=== PATIENT | female | born 1950 | race Caucasian/White ===

== ENCOUNTER 2018-11-03 14:33 | Inpatient (IN) | payer MEDICARE, MEDICAID ==
[2018-11-03] MEDS ORDERED: Dextrose 50% Abboject 50 ML SYRINGE SLOW IVP PRN (17:27)
[2018-11-03] MEDS ORDERED: Dextrose 5% in Water 1,000 ML IV PRN (17:27)
[2018-11-03] MEDS: Acetaminophen 325 MG TAB PO PRN (19:53)
[2018-11-03] MEDS: HumaLOG 300 UNITS/3 ML VIAL SC PRN (20:58)
[2018-11-03] MEDS: Clotrimazole 1% Cream 15 GM TUBE TOP SCH (20:58)
[2018-11-04 06:10] LABS: ALT (SGPT) 31 U/L (8-55); AST (SGOT) 20 U/L (5-34); Albumin 3.7 g/dL (3.4-4.8); Alkaline Phosphatase 74 U/L (40-150); Anion Gap 12 mmol/L (10-20); BUN (Urea Nitrogen) 18 mg/dL (9.8-20.1); Bilirubin, Total 0.7 mg/dL (0.2-1.2); Calc. Creatinine Clearance 108 mL/min (70-130); Calcium 8.7 mg/dL (7.8-10.44); Carbon Dioxide 31 mmol/L (23-31); Chloride 101 mmol/L (98-107); Estimated GFR-MDRD 84; Glucose 154 mg/dL (80-115); Protein, Total 5.7 g/dL (6.0-8.3); Sodium 140 mmol/L (136-145)
--- NOTE | 2018-11-04 07:10 | HP ---
CHIEF COMPLAINT: Weakness. 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 The patient lives at home with her brother where she is independent of all her ADLs. She is able to prepare her own meals, but she does not drive. She uses oxygen continuous. The patient was hospitalized at [facility] from 10/15/2018 to 2018 for her postinflammatory pulmonary fibrosis with bronchiectasis with exacerbation and COPD with acute exacerbation. She was under the care of her pulmonary doctor, Dr. Chairez and his associates and treated with IV antibiotic, steroids, nebulization treatment, supplemental O2 with gradual improvement. She was switched to oral antibiotics and completed these, was switched to an oral tapering dose of steroids, and completed these. While there, she underwent a CT scan of the high resolution of the chest that showed chronic interstitial lung disease associated with traction bronchiectasis. The patient also showed signs of diffuse third spacing of fluid and anasarca, and while hospitalized there had anasarca that improved during her hospitalization, but not resolved. The patient was left extremely weak, where she could not transfer without help and was no longer ambulatory. She was moved to [facility] on 11/03/2018 for physical therapy and occupational therapy. The patient was seen soon after admission and was able to tell me that she had been in the hospital for the breathing difficulty that had improved. She said though she was left very weak and could not get up on her own and could not walk. Prior to the hospitalization, she was independent of all her ADLs and able to prepare her own meals. PAST MEDICAL HISTORY: Hospitalized at [facility] from 10/15/2018 to 11/03/2018 for postinflammatory pulmonary fibrosis with bronchiectasis with an acute exacerbation and COPD with acute exacerbation. Hospitalized at [facility] from 09/23/2017 to 10/02/2017 for active mycobacterium tuberculosis of the lungs, treated initially with 4 drugs that included isoniazid, rifampin, pyrazinamide, and ethambutol. She developed a severe drug-induced liver injuries from the INH, and this was stopped. After this was stopped, the liver studies normalized and she was able to resume her other 3 medicines and completed therapy for the active pulmonary tuberculosis. She was followed by the [facility]. The patient has diabetes mellitus type 2, insulin requiring. Her hemoglobin A1c on 10/17/2018 was 5.3. She has hypertension, COPD, peripheral neuropathy of the lower extremities. She has hyperlipidemia. Echocardiogram done on 09/06/2017, showed ejection fraction of 55% to 60%. There is elevated right ventricular pressure, moderate tricuspid regurgitation, grade 1 of 3 diastolic dysfunction, dilated right ventricle, reduced right ventricular function, mildly dilated left atrium, moderately dilated right atrium, elevated right ventricular pressure PAST SURGICAL HISTORY: Status post cholecystectomy, status post EVELIN. ALLERGIES: ISONIAZID CAUSES SEVERE LIVER INJURY. LYRICA CAUSES SOMNOLENCE AND ALSO CONTRIBUTES TO HER EDEMA. THIS WAS STOPPED DURING HER HOSPITALIZATION OF 10/15/2018. REVIEW OF SYSTEMS: GENERAL: The patient said she has not had any fever. Her appetite has been fair. EARS, NOSE, AND THROAT: No visual change. No hearing trouble. MOUTH: Just a little sore. PULMONARY: No complaints. She uses her oxygen all the time. She is not coughing, has no sputum production. CARDIOVASCULAR: No chest pain. GI: No nausea or vomiting. Bowels are working well. : No complaints. SKIN: The patient has a rash in the perineum and some redness on her heels. HABITS: Alcohol, none. Tobacco, the patient smoked for a few years, but stopped years ago. SOCIAL HISTORY: The patient lives with her brother in [place], has a daughter who helps with her instrumental ADLs and driving her when needed. CODE STATUS: Unknown. PHYSICAL EXAMINATION: VITAL SIGNS: Temperature 99.4, pulse 119, respirations 20, O2 saturation 92% on 2 L, blood pressure 117/72. Her weight is 198. GENERAL: The patient is a very pleasant 68-year-old white female, who is lying in bed with the head of the bed elevated. She appears comfortable and in no distress. She is wearing O2 by nasal cannula at 2 L a minute. She appears older than her stated age. HEENT: Her head is normocephalic and atraumatic. Her eyes, pupils are equal, round, and reactive. Sclerae nonicteric. Nose normal. Mouth and throat, tongue has little cobblestone appearance, has a pink reddish discoloration. Her ears, TMs are clear. NECK: No adenopathy. Thyroid not enlarged. LUNGS: Clear. There are moderate breath sounds. There are no rales, wheezes, rhonchi. HEART: Rapid regular rhythm. There are no murmurs. ABDOMEN: Soft. No organomegaly nor areas of tenderness. EXTREMITIES: 4+ edema from knees down. The patient says her legs are better. Said she did have a lot of swelling even in the hands, but this got better. SKIN: The patient has a red rash in the perineal area and in the intergluteal crease with satellite lesion. There is one spot that is probably no more than 5 mm in diameter that the skin is broken and bled a little and may have been a spot of excoriation. The heels are red on posterior and do not eder. There are no open areas. NEUROLOGIC: The patient is alert and knows she is in the hospital, understands her situation. She has severe generalized weakness, but no focal weakness. IMPRESSION: 1. Severe generalized weakness and deconditioning. a Following hospital stay from 10/15 to 11/03. b .Requires assistance with all her ADLs. c Presently nonambulatory and requiring assistance with any transfers. 2. Hospitalized at [facility] from 10/15/2018 until 11/03/2018 for postinflammatory pulmonary fibrosis with bronchiectasis with acute exacerbation and chronic obstructive pulmonary disease acute exacerbation complicated by anasarca. 3. Postinflammatory pulmonary fibrosis. a. Acute exacerbation requiring hospitalization from 10/15 to 11/03, resolving. b. Complicated by chronic hypoxemia requiring supplemental oxygen. 4. Chronic obstructive pulmonary disease. a. Acute exacerbation requiring hospitalization from 10/15 to 11/03, resolving. 5. 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 a. Treated, completed therapy with 3 drugs, rifampin, pyrazinamide, and ethambutol. b. Fourth drug isoniazid had to be stopped due to drug-induced liver injury, that resolved after this had been stopped. c. No evidence of any recurrence. 6. Diabetes mellitus type 2, insulin requiring. a. Controlled with hemoglobin A1c of 7.3 on 10/17/2018. 7. Hypertension. 8. Diastolic dysfunction. 9. Chronic right heart failure, cor pulmonale. 10. Peripheral neuropathy of the lower extremities secondary to diabetes. 11. Hyperlipidemia. 12. Candidiasis of the intergluteal crease, perineum, and oral thrush. PLAN: The patient has been admitted to [facility] for purpose of physical therapy and OT. She has marked anasarca that is contributed to by her right heart failure. We will continue present care. Apparently, the edema is improving. We will add diuretic to assist with the severe edema. Her last estimated GFR was 87 on 10/31/2018. We will continue DVT prophylaxis with Lovenox. We will check glucometers a.c. and at bedtime. Check on code status. I have stopped her Lyrica due to a history of somnolence and this contributing to her edema. See orders. Job ID: [id number] MTDD
[2018-11-04 07:17] LABS: Hemoglobin 10.5 g/dL (12.0-16.0); Mean Corpuscular HGB CONC 29.9 g/dL (32.0-36.0); Mean Corpuscular Hemoglobin 20.9 pg (27.0-31.0); Mean Platelet Volume 8.9 fL (7.4-10.4); Platelet Count 114 thou/uL (130-400); RBC Distribution Width 17.7 % (11.5-14.5); Red Blood Cell (RBC) Count 5.02 mill/uL (4.20-5.40); White Blood Cell (WBC) Count 7.8 thou/uL (4.8-10.8)
[2018-11-04 07:20] LABS: Anisocytosis SLIGHT = 6-15 cells (100X) (0-5/hpf); Band 1 % (5-11); Hypochromia SLIGHT = 6-15 cells (100X) (0-5/hpf); Lymphocytes 10 % (21-51); MDiff Complete? YES; Microcytosis SLIGHT = 6-15 cells (100X) (0-5/hpf); Monocytes 2 % (0-10); Neutrophil 87 % (42-75); Platelet Morphology Comment Appears Decreased
[2018-11-04] MEDS: Furosemide 40 MG TAB PO SCH (08:28)
[2018-11-04] MEDS: Clotrimazole 1% Cream 15 GM TUBE TOP SCH ×2 (08:28→20:54)
[2018-11-04] MEDS: predniSONE 10 MG TAB PO SCH (08:28)
[2018-11-04] MEDS: metFORMIN 500 MG TAB PO SCH ×2 (08:28→17:11)
[2018-11-04] MEDS: Enoxaparin Sodium 40 MG/0.4 ML SYRINGE SC SCH (08:28)
[2018-11-04] MEDS: Fluconazole 100 MG TAB PO SCH (08:28)
[2018-11-04] MEDS: HumaLOG 300 UNITS/3 ML VIAL SC PRN ×2 (08:38→17:11)
[2018-11-04] MEDS ORDERED: Non-Formulary Item 1 EACH (Atorvastatin Calcium [Atorvastatin Calcium] 20 MG) PO SCH (09:00)
--- NOTE | 2018-11-04 10:35 | PRG ---
DATE OF SERVICE: 11/04/2018 SUBJECTIVE: The patient said she is feeling better today. She is not having any trouble with her breathing. She had a good night rest. OBJECTIVE: GENERAL: The patient is sitting on the side of the bed, preparing for physical therapy to work with her. She looks comfortable and in no distress. VITAL SIGNS: Her temp is 97.6, her pulse is 114, respirations are 16, O2 saturation 92% on 2 L by nasal cannula, blood pressure 109/68. Her weight is 198. LUNGS: Clear. HEART: Regular rate. EXTREMITIES: Lower extremities have 2+ edema. LABORATORY DATA: Lab shows an H and H of 10.5 and 35.2 with white cell count of 7800 with 87% segs, 1% band, 10% lymphocytes, platelet count of 114,000, which is down from 121 on 10/20/2018 and 171 from 10/17/2018. Her sodium is 140, potassium 4, BUN 18, creatinine 0.69, GFR 84, glucose 154, albumin 3.7. ASSESSMENT: 1. Severe generalized weakness and deconditioning. a Following hospital stay from 10/15 to 11/03. b .Requires assistance with all her ADLs. c Presently nonambulatory and requiring assistance with any transfers. d. Beginning to work with physical therapy as of 11/04/2018. 2. Hospitalized at [facility] from 10/15/2018 until 11/03/2018 for postinflammatory pulmonary fibrosis with bronchiectasis with acute exacerbation and chronic obstructive pulmonary disease acute exacerbation complicated by anasarca. 3. Postinflammatory pulmonary fibrosis. a. Acute exacerbation requiring hospitalization from 10/15 to 11/03, resolving. b. Complicated by chronic hypoxemia requiring supplemental oxygen. 4. Chronic obstructive pulmonary disease. a. Acute exacerbation requiring hospitalization from 10/15 to 11/03, resolving. 5. 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 a. Treated, completed therapy with 3 drugs, rifampin, pyrazinamide, and ethambutol. b. Fourth drug isoniazid had to be stopped due to drug-induced liver injury, that resolved after this had been stopped. c. No evidence of any recurrence. 6. Diabetes mellitus type 2, insulin requiring. a. Controlled with hemoglobin A1c of 7.3 on 10/17/2018. 7. Hypertension. 8. Diastolic dysfunction. 9. Chronic right heart failure, cor pulmonale. 10. Peripheral neuropathy of the lower extremities secondary to diabetes. 11. Hyperlipidemia. 12. Candidiasis of the intergluteal crease, perineum, and oral thrush. 13. Peripheral edema. a. Secondary probably to a combined effect of venous insufficiency and the right heart failure. b. Improved as of 11/04/2018. 14. Thrombocytopenia. a. Platelet count 114 as of 11/03/2018. PLAN: We will continue present care. Recheck her CBC in the morning. If she has continued drop in this, we will stop her Lovenox. Job ID: [id number] MTDD
[2018-11-04] MEDS: Acetaminophen 325 MG TAB PO PRN ×2 (11:02→20:56)
[2018-11-05 06:26] LABS: Mean Corpuscular HGB CONC 29.2 g/dL (32.0-36.0); Mean Corpuscular Hemoglobin 20.8 pg (27.0-31.0); Mean Corpuscular Volume 71.2 fL (78.0-98.0); Mean Platelet Volume 8.3 fL (7.4-10.4); Platelet Count 127 thou/uL (130-400); RBC Distribution Width 18.9 % (11.5-14.5); Red Blood Cell (RBC) Count 4.81 mill/uL (4.20-5.40)
[2018-11-05 06:44] LABS: Anisocytosis SLIGHT = 6-15 cells (100X) (0-5/hpf); Eosinophils 1 % (0-10); Lymphocytes 13 % (21-51); MDiff Complete? YES; Microcytosis SLIGHT = 6-15 cells (100X) (0-5/hpf); Monocytes 2 % (0-10); Neutrophil 84 % (42-75); Platelet Morphology Comment Appears Adequate
[2018-11-05] MEDS: Furosemide 40 MG TAB PO SCH (07:19)
[2018-11-05] MEDS: metFORMIN 500 MG TAB PO SCH ×2 (07:20→16:44)
[2018-11-05] MEDS: Clotrimazole 1% Cream 15 GM TUBE TOP SCH ×2 (08:20→20:24)
[2018-11-05] MEDS: Enoxaparin Sodium 40 MG/0.4 ML SYRINGE SC SCH (08:20)
[2018-11-05] MEDS: Fluconazole 100 MG TAB PO SCH (08:21)
[2018-11-05] MEDS: predniSONE 10 MG TAB PO SCH (08:22)
--- NOTE | 2018-11-05 09:47 | PRG ---
DATE OF SERVICE: 11/05/2018 SUBJECTIVE: The patient said she had a good night. She is feeling better. She was able to walk a little bit in the room yesterday. She is not having any shortness of breath. OBJECTIVE: GENERAL: The patient is sitting up in bed. She is alert, talkative , appears very comfortable and in no distress. VITAL SIGNS: Her temperature 98.2, pulse 111, respirations 20, O2 saturation 95 % on 2 L, blood pressure 123/85. LUNGS: Clear. HEART: Regular rate with pulse this morning of 111. EXTREMITIES: Her lower extremities are 2+ edema in the lower legs. There is some pitting edema that extends all the way up to the proximal thighs, but overall the legs look better. LABORATORY DATA: Her lab shows an H and H of 10 and 34.3, MCV of 71.2 with 84% segs, 13% lymphocytes, platelet count is improved to 127. FBS 138. ASSESSMENT: 1. Severe generalized weakness and deconditioning. a Following hospital stay from 10/15 to 11/03. b .Requires assistance with all her ADLs. c Has been able to walk a little bit in her room with her walker and Physical Therapy, still requiring moderate to max assist on transfers as of 11/05. d. Beginning to work with physical therapy as of 11/04/2018. 2. Hospitalized at [facility] from 10/15/2018 until 11/03/2018 for postinflammatory pulmonary fibrosis with bronchiectasis with acute exacerbation and chronic obstructive pulmonary disease acute exacerbation complicated by anasarca. 3. Postinflammatory pulmonary fibrosis. a. Acute exacerbation requiring hospitalization from 10/15 to 11/03, resolving. b. Complicated by chronic hypoxemia requiring supplemental oxygen. 4. Chronic obstructive pulmonary disease. a. Acute exacerbation requiring hospitalization from 10/15 to 11/03, resolving. 5. 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 a. Treated, completed therapy with 3 drugs, rifampin, pyrazinamide, and ethambutol. b. Fourth drug isoniazid had to be stopped due to drug-induced liver injury, that resolved after this had been stopped. c. No evidence of any recurrence. 6. Diabetes mellitus type 2, insulin requiring. a. Controlled with hemoglobin A1c of 7.3 on 10/17/2018. 7. Hypertension. 8. Diastolic dysfunction. 9. Chronic right heart failure, cor pulmonale. 10. Peripheral neuropathy of the lower extremities secondary to diabetes. 11. Hyperlipidemia. 12. Candidiasis of the intergluteal crease, perineum, and oral thrush. 13. Peripheral edema. a. Secondary probably to a combined effect of venous insufficiency and the right heart failure. b. Improved as of 11/05/2018. 14. Thrombocytopenia. a. Platelet count is improved from 114,000 to 127,000 as of 11/05/2018. 15, Anemia. a. Hemoglobin of 10.0 with MCV of 71. PLAN: Continue present care. We will recheck CBC in the morning with iron studies. Job ID: [id number] MTDD
[2018-11-05] MEDS: HumaLOG 300 UNITS/3 ML VIAL SC PRN ×3 (11:49→22:05)
[2018-11-05] MEDS ORDERED: Mag-Al Plus 1200 MG/1200 MG/120 MG/30 ML UDCUP PO PRN (11:56)
[2018-11-06 05:19] LABS: Anion Gap 11 mmol/L (10-20); BUN (Urea Nitrogen) 16 mg/dL (9.8-20.1); Calc. Creatinine Clearance 120 mL/min (70-130); Calcium 8.1 mg/dL (7.8-10.44); Carbon Dioxide 31 mmol/L (23-31); Chloride 102 mmol/L (98-107); Estimated GFR-MDRD Greater than 90; Glucose 118 mg/dL (80-115); Potassium 3.9 mmol/L (3.5-5.1); Sodium 140 mmol/L (136-145)
[2018-11-06 05:28] LABS: #Basophils 0.1 thou/uL (0.0-0.2); #Eosinphils 0.1 thou/uL (0.0-0.7); #Lymphocytes 0.7 thou/uL (1.20-3.40); #Monocytes 0.4 thou/uL (0.11-0.59); #Neutrophils 4.5 thou/uL (1.40-6.50); %Basophils 0.9 % (0.0-1.0); %Eosinophils 1.9 % (0.0-10.0); %Monocytes 7.7 % (0.0-10.0); %Neutrophils 77.6 % (42.0-75.0); Hemoglobin 9.5 g/dL (12.0-16.0); Hypochromia MODERATE=16-30 cells (100X) (0-5/hpf); MDiff Complete? YES; Macrocytosis SLIGHT = 6-15 cells (100X) (0-5/hpf); Mean Corpuscular HGB CONC 30.3 g/dL (32.0-36.0); Mean Corpuscular Hemoglobin 21.5 pg (27.0-31.0); Mean Corpuscular Volume 71.1 fL (78.0-98.0); Microcytosis SLIGHT = 6-15 cells (100X) (0-5/hpf); Ovalocytes MODERATE= 6-15 cells (100X) (0-1/hpf); Platelet Count 132 thou/uL (130-400); Platelet Morphology Comment Appears Adequate; RBC Distribution Width 19.1 % (11.5-14.5); RBC Morphology Abnormal; White Blood Cell (WBC) Count 5.8 thou/uL (4.8-10.8)
[2018-11-06] MEDS: metFORMIN 500 MG TAB PO SCH ×2 (08:25→16:45)
[2018-11-06] MEDS: Furosemide 40 MG TAB PO SCH (08:25)
[2018-11-06] MEDS: Fluconazole 100 MG TAB PO SCH (08:25)
[2018-11-06] MEDS: Clotrimazole 1% Cream 15 GM TUBE TOP SCH ×2 (08:25→20:44)
[2018-11-06] MEDS: predniSONE 10 MG TAB PO SCH (08:25)
[2018-11-06] MEDS: Enoxaparin Sodium 40 MG/0.4 ML SYRINGE SC SCH (08:25)
--- NOTE | 2018-11-06 09:22 | PRG ---
DATE OF SERVICE: 11/06/2018 SUBJECTIVE: The patient said she is feeling better. She slept well last night. She does not think her swelling in her legs is any better. She is working with Physical Therapy, is requiring moderate to maximum assist with any transfer, has been only able to walk up to 4 feet and that is with walker and assistance. OBJECTIVE: GENERAL: The patient is sitting up in a bedside chair. She is alert and talkative, appears very comfortable, in no distress. VITAL SIGNS: Her temperature is 98, pulse 106, respirations 22, O2 saturation 98% on 2 L, blood pressure 122/82. Her weight is stable at 198. LUNGS: Clear. HEART: Regular rate. EXTREMITIES: Still have the 2+ edema in the lower legs and 1+ in the upper legs. LABORATORY DATA: Her lab shows an H and H of 9.5 and 31.3, white cell count 5800 with 78% segs, 12% lymphocytes, platelet count is up to 132,000. Sodium 140, potassium 3.9, BUN 16, creatinine 0.62. FBS 118. Iron studies pending. ASSESSMENT: 1. Severe generalized weakness and deconditioning. a Following hospital stay from 10/15 to 11/03. b .Requires assistance with all her ADLs. c Has been able to walk a little bit in her room with her walker and Physical Therapy, still requiring moderate to max assist on transfers as of 11/05. d. Able to tolerate sitting up in a chair and walking just a couple of steps , but requiring maximum assist with transfer and walking as of 11/06/2018. 2. Hospitalized at [facility] from 10/15/2018 until 11/03/2018 for postinflammatory pulmonary fibrosis with bronchiectasis with acute exacerbation and chronic obstructive pulmonary disease acute exacerbation complicated by anasarca. 3. Postinflammatory pulmonary fibrosis. a. Acute exacerbation requiring hospitalization from 10/15 to 11/03, resolving. b. Complicated by chronic hypoxemia requiring supplemental oxygen. 4. Chronic obstructive pulmonary disease. a. Acute exacerbation requiring hospitalization from 10/15 to 11/03, resolving. 5. 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 a. Treated, completed therapy with 3 drugs, rifampin, pyrazinamide, and ethambutol. b. Fourth drug isoniazid had to be stopped due to drug-induced liver injury, that resolved after this had been stopped. c. No evidence of any recurrence. 6. Diabetes mellitus type 2, insulin requiring. a. Controlled with hemoglobin A1c of 7.3 on 10/17/2018. 7. Hypertension. 8. Diastolic dysfunction. 9. Chronic right heart failure, cor pulmonale. a. Complicated by severe peripheral edema that has not improved as of 11/06/2018. 10. Peripheral neuropathy of the lower extremities secondary to diabetes. 11. Hyperlipidemia. 12. Candidiasis of the intergluteal crease, perineum, and oral thrush. 13. Peripheral edema. a. Secondary probably to a combined effect of venous insufficiency and the right heart failure. b.Stable with significant edema still in the lower extremities as of 11/06. 14. Thrombocytopenia. a. Platelet count is improved from 114,000 to 127,000 as of 11/05/2018. b. Resolved with platelet count of 132 as of 11/06/2018. 15, Anemia. a. Hemoglobin of 10.0 with MCV of 71. PLAN: Continue physical therapy. We will reduce prednisone to 5 mg for 3 days and then discontinue. We will continue the furosemide. We will add Zaroxolyn 2.5 mg daily to try to help with the severe edema of the lower extremities. Job ID: [id number] [facility]
[2018-11-06] MEDS: Metolazone 5 MG TAB PO SCH (10:19)
[2018-11-06 11:49] LABS: Iron 59 ug/dL (50-170); Iron Binding Capacity, Total 296 mcg/dL (265-497)
[2018-11-06] MEDS: HumaLOG 300 UNITS/3 ML VIAL SC PRN ×2 (12:01→17:16)
[2018-11-06] MEDS: Acetaminophen 325 MG TAB PO PRN (20:46)
[2018-11-07 05:39] LABS: Anion Gap 10 mmol/L (10-20); BUN (Urea Nitrogen) 13 mg/dL (9.8-20.1); Calc. Creatinine Clearance 116 mL/min (70-130); Calcium 8.3 mg/dL (7.8-10.44); Carbon Dioxide 33 mmol/L (23-31); Chloride 99 mmol/L (98-107); Estimated GFR-MDRD Greater than 90; Glucose 142 mg/dL (80-115); Potassium 3.5 mmol/L (3.5-5.1); Sodium 138 mmol/L (136-145)
[2018-11-07] MEDS: Furosemide 40 MG TAB PO SCH (08:34)
[2018-11-07] MEDS: Enoxaparin Sodium 40 MG/0.4 ML SYRINGE SC SCH (08:34)
[2018-11-07] MEDS: metFORMIN 500 MG TAB PO SCH ×2 (08:35→17:20)
[2018-11-07] MEDS: Metolazone 5 MG TAB PO SCH (08:35)
[2018-11-07] MEDS: predniSONE 5 MG TAB PO SCH (08:36)
[2018-11-07] MEDS: Fluconazole 100 MG TAB PO SCH (08:36)
[2018-11-07] MEDS: Clotrimazole 1% Cream 15 GM TUBE TOP SCH ×2 (08:36→19:58)
[2018-11-07] MEDS: HumaLOG 300 UNITS/3 ML VIAL SC PRN ×3 (08:38→17:20)
[2018-11-07] MEDS: Acetaminophen 325 MG TAB PO PRN (19:59)
[2018-11-08 05:16] LABS: Anion Gap 12 mmol/L (10-20); BUN (Urea Nitrogen) 13 mg/dL (9.8-20.1); Calc. Creatinine Clearance 116 mL/min (70-130); Calcium 8.5 mg/dL (7.8-10.44); Carbon Dioxide 33 mmol/L (23-31); Chloride 97 mmol/L (98-107); Estimated GFR-MDRD Greater than 90; Glucose 124 mg/dL (80-115); Potassium 3.6 mmol/L (3.5-5.1); Sodium 138 mmol/L (136-145)
[2018-11-08] MEDS: Metolazone 5 MG TAB PO SCH (08:24)
[2018-11-08] MEDS: Fluconazole 100 MG TAB PO SCH (08:25)
[2018-11-08] MEDS: metFORMIN 500 MG TAB PO SCH ×2 (08:25→17:16)
[2018-11-08] MEDS: predniSONE 5 MG TAB PO SCH (08:25)
[2018-11-08] MEDS: Enoxaparin Sodium 40 MG/0.4 ML SYRINGE SC SCH (08:25)
[2018-11-08] MEDS: Furosemide 40 MG TAB PO SCH (08:26)
[2018-11-08] MEDS: Clotrimazole 1% Cream 15 GM TUBE TOP SCH ×2 (08:26→21:54)
[2018-11-08] MEDS: HumaLOG 300 UNITS/3 ML VIAL SC PRN ×2 (11:56→17:17)
[2018-11-08] MEDS: Proctozone-HC 2.5% Cream 30 GM TUBE TOP SCH (21:55)
[2018-11-08] MEDS: traMADol HCl 50 MG TAB PO PRN (21:57)
[2018-11-09] MEDS: Acetaminophen 325 MG TAB PO PRN (03:28)
[2018-11-09] MEDS: Fluconazole 100 MG TAB PO SCH (08:32)
[2018-11-09] MEDS: Furosemide 40 MG TAB PO SCH (08:32)
[2018-11-09] MEDS: Metolazone 5 MG TAB PO SCH (08:32)
[2018-11-09] MEDS: Enoxaparin Sodium 40 MG/0.4 ML SYRINGE SC SCH (08:34)
[2018-11-09] MEDS: Proctozone-HC 2.5% Cream 30 GM TUBE TOP SCH ×4 (08:34→20:01)
[2018-11-09] MEDS: Clotrimazole 1% Cream 15 GM TUBE TOP SCH ×2 (08:34→19:59)
[2018-11-09] MEDS: predniSONE 5 MG TAB PO SCH (08:35)
[2018-11-09] MEDS: metFORMIN 500 MG TAB PO SCH ×2 (08:35→17:17)
[2018-11-09] MEDS: HumaLOG 300 UNITS/3 ML VIAL SC PRN ×2 (12:19→17:18)
--- NOTE | 2018-11-09 12:59 | PRG ---
DATE OF SERVICE: 11/08/2018 SUBJECTIVE: The patient said she is feeling better. A Gross catheter was inserted because she has had a vulval vaginitis, probable Robyn, and she was incontinent. The incontinence was creating a lot of maceration and making the vulvovaginitis worse. She has felt much better since catheter was inserted. This also gave a much better way to assess her input and output. Today, she is feeling better. Her breathing is better. She has family visiting with her with daughters from [place]. OBJECTIVE: GENERAL: The patient is lying in bed, lying on her right side. She is alert and talkative, looks very happy, in no distress. VITAL SIGNS: Her temp is 97.3, pulse is down to 101, respirations are 16, O2 saturation 93% on 2.5 L, blood pressure 120/69. Her output has been 4900 over the last 24 hours. Weight pending. LUNGS: Clear. HEART: Regular rate. EXTREMITIES: Lower extremities still have 2+ edema, but are obviously smaller with less edema. She still has some edema in the upper legs, but this is smaller and there is also some pitting edema in the low back and buttock. LABORATORY DATA: Her lab shows a sodium of 138, potassium of 3.6, BUN 13, creatinine 0.64, which is stable. GFR greater than 90. FBS 124. ASSESSMENT: 1. Severe generalized weakness and deconditioning. a Following hospital stay from 10/15 to 11/03. b .Requires assistance with all her ADLs. c Has been able to walk a little bit in her room with her walker and Physical Therapy, still requiring moderate to max assist on transfers as of 11/05. d. Able to tolerate sitting up in a chair and walking just a couple of steps , but requiring maximum assist with transfer and walking as of 11/08/2018. 2. Hospitalized at [facility] from 10/15/2018 until 11/03/2018 for postinflammatory pulmonary fibrosis with bronchiectasis with acute exacerbation and chronic obstructive pulmonary disease acute exacerbation complicated by anasarca. 3. Postinflammatory pulmonary fibrosis. a. Acute exacerbation requiring hospitalization from 10/15 to 11/03, resolving. b. Complicated by chronic hypoxemia requiring supplemental oxygen. 4. Chronic obstructive pulmonary disease. a. Acute exacerbation requiring hospitalization from 10/15 to 11/03, resolving. 5. 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 a. Treated, completed therapy with 3 drugs, rifampin, pyrazinamide, and ethambutol. b. Fourth drug isoniazid had to be stopped due to drug-induced liver injury, that resolved after this had been stopped. c. No evidence of any recurrence. 6. Diabetes mellitus type 2, insulin requiring. a. Controlled with hemoglobin A1c of 7.3 on 10/17/2018. 7. Hypertension. 8. Diastolic dysfunction. 9. Chronic right heart failure, cor pulmonale. a. Complicated by severe peripheral edema extending up into the buttock and low back. b. Improved as of 11/08/2018, but still significant edema remains. 10. Peripheral neuropathy of the lower extremities secondary to diabetes. 11. Hyperlipidemia. 12. Candidiasis of the intergluteal crease, perineum, and oral thrush. a. Complicated by maceration from the urinary incontinence. b. Improved since insertion of Gross catheter. 13. Peripheral edema. a. Secondary probably to a combined effect of venous insufficiency and the right heart failure. b.Improved, but still significant edema remains as of 11/08/2018. 14. Thrombocytopenia. a. Platelet count is improved from 114,000 to 127,000 as of 11/05/2018. b. Resolved with platelet count of 132 as of 11/06/2018. 15, Anemia. a. Hemoglobin of 10.0 with MCV of 71. PLAN: We will continue the Zaroxolyn and the furosemide p.o. We will continue the Gross catheter. This has helped relieve the urinary incontinence, which was contributing to the maceration and making the Robyn vulvovaginitis worse. Gross catheter also gives a better way to help assess her output. We will recheck CBC and basic metabolic panel on 11/10/2018. Job ID: [id number] [facility]
[2018-11-10] MEDS: Furosemide 40 MG TAB PO SCH (09:10)
[2018-11-10] MEDS: Clotrimazole 1% Cream 15 GM TUBE TOP SCH ×2 (09:10→20:55)
[2018-11-10] MEDS: metFORMIN 500 MG TAB PO SCH ×2 (09:10→16:33)
[2018-11-10] MEDS: Enoxaparin Sodium 40 MG/0.4 ML SYRINGE SC SCH (09:11)
[2018-11-10] MEDS: Fluconazole 100 MG TAB PO SCH (09:11)
[2018-11-10] MEDS: Proctozone-HC 2.5% Cream 30 GM TUBE TOP SCH ×4 (09:13→20:55)
[2018-11-10] MEDS: Metolazone 5 MG TAB PO SCH (09:15)
[2018-11-10] MEDS: HumaLOG 300 UNITS/3 ML VIAL SC PRN ×2 (09:21→16:54)
[2018-11-10] MEDS: Acetaminophen 325 MG TAB PO PRN (16:35)
[2018-11-11 05:12] LABS: #Basophils 0.1 thou/uL (0.0-0.2); #Eosinphils 0.1 thou/uL (0.0-0.7); #Lymphocytes 0.8 thou/uL (1.20-3.40); #Monocytes 0.4 thou/uL (0.11-0.59); #Neutrophils 1.9 thou/uL (1.40-6.50); %Basophils 2.6 % (0.0-1.0); %Eosinophils 2.7 % (0.0-10.0); %Monocytes 12.7 % (0.0-10.0); Anisocytosis SLIGHT = 6-15 cells (100X) (0-5/hpf); Elliptocytes SLIGHT = 2-5 cells (100X) (0-1/hpf); Hemoglobin 9.1 g/dL (12.0-16.0); Hypochromia MODERATE=16-30 cells (100X) (0-5/hpf); MDiff Complete? YES; Mean Corpuscular HGB CONC 30.8 g/dL (32.0-36.0); Mean Corpuscular Volume 71.5 fL (78.0-98.0); Mean Platelet Volume 7.4 fL (7.4-10.4); Microcytosis SLIGHT = 6-15 cells (100X) (0-5/hpf); Platelet Count 130 thou/uL (130-400); Platelet Morphology Comment Appears Decreased; Poikilocytosis SLIGHT = 6-15 cells (100X) (0-5/hpf); RBC Distribution Width 21.2 % (11.5-14.5); RBC Morphology Abnormal; Red Blood Cell (RBC) Count 4.12 mill/uL (4.20-5.40); White Blood Cell (WBC) Count 3.2 thou/uL (4.8-10.8)
[2018-11-11 05:21] LABS: Anion Gap 16 mmol/L (10-20); BUN (Urea Nitrogen) 14 mg/dL (9.8-20.1); Calc. Creatinine Clearance 98 mL/min (70-130); Calcium 8.7 mg/dL (7.8-10.44); Carbon Dioxide 34 mmol/L (23-31); Chloride 91 mmol/L (98-107); Estimated GFR-MDRD 89; Glucose 125 mg/dL (80-115); Potassium 3.5 mmol/L (3.5-5.1); Sodium 137 mmol/L (136-145)
[2018-11-11] MEDS: Fluconazole 100 MG TAB PO SCH (08:44)
[2018-11-11] MEDS: Enoxaparin Sodium 40 MG/0.4 ML SYRINGE SC SCH (08:44)
[2018-11-11] MEDS: Metolazone 5 MG TAB PO SCH (08:44)
[2018-11-11] MEDS: Clotrimazole 1% Cream 15 GM TUBE TOP SCH ×2 (08:45→20:58)
[2018-11-11] MEDS: metFORMIN 500 MG TAB PO SCH ×2 (08:45→17:03)
[2018-11-11] MEDS: Proctozone-HC 2.5% Cream 30 GM TUBE TOP SCH ×4 (08:45→20:58)
[2018-11-11] MEDS: Furosemide 40 MG TAB PO SCH (08:45)
[2018-11-11] MEDS: HumaLOG 300 UNITS/3 ML VIAL SC PRN (11:56)
[2018-11-11] MEDS: traMADol HCl 50 MG TAB PO PRN (20:58)
[2018-11-12] MEDS: Furosemide 40 MG TAB PO SCH (08:10)
[2018-11-12] MEDS: metFORMIN 500 MG TAB PO SCH ×2 (08:10→16:52)
[2018-11-12] MEDS: Metolazone 5 MG TAB PO SCH (08:10)
[2018-11-12] MEDS: Clotrimazole 1% Cream 15 GM TUBE TOP SCH ×2 (08:11→20:40)
[2018-11-12] MEDS: Fluconazole 100 MG TAB PO SCH (08:11)
[2018-11-12] MEDS: Enoxaparin Sodium 40 MG/0.4 ML SYRINGE SC SCH (08:12)
[2018-11-12] MEDS: Proctozone-HC 2.5% Cream 30 GM TUBE TOP SCH ×4 (08:12→20:41)
--- NOTE | 2018-11-12 08:28 | PRG ---
DATE OF SERVICE: 11/10/2018 SUBJECTIVE: The patient said she is feeling better. She is not having any trouble with her breathing. She was having a little pain in the vulva area from the rash. The Tylenol when holding it, she has been given tramadol to use as a fallback, which apparently has helped. The patient is doing a little better with her transfers. OBJECTIVE: GENERAL: The patient is sitting on the edge of the bed, getting ready to transfer into a chair with the therapists help. She is alert, talkative, appears in no distress. VITAL SIGNS: Shows a temperature of 98.7, pulse 86, respirations are 16, O2 saturation has been 96% on 2 L, and blood pressure 107/64. Her weight today was 174. Her admission weight was 198. Her output over the last 24 hours been 3700. LUNGS: Clear. HEART: Regular rate. EXTREMITIES: The edema in the lower legs is much improved. There is still some 2+ edema, but overall the area of edema is less. The edema in the upper leg is just trace. BACK: The edema in the low back is much less. LABORATORY DATA: Her lab shows an FBS of 190 at bedtime. Yesterday morning fasting was 137, this morning pending. ASSESSMENT: 1. Severe generalized weakness and deconditioning. a Following hospital stay from 10/15 to 11/03. b .Requires assistance with all her ADLs. c Has been able to walk a little bit in her room with her walker and Physical Therapy, still requiring moderate to max assist on transfers as of 11/05. d. Improved. Tolerating sitting up in the chair and walking a few steps. Doing better with transfer, but still needing moderate assist as of 2018. 2. Hospitalized at [facility] from 10/15/2018 until 11/03/2018 for postinflammatory pulmonary fibrosis with bronchiectasis with acute exacerbation and chronic obstructive pulmonary disease acute exacerbation complicated by anasarca. 3. Postinflammatory pulmonary fibrosis. a. Acute exacerbation requiring hospitalization from 10/15 to 11/03, resolving. b. Complicated by chronic hypoxemia requiring supplemental oxygen. 4. Chronic obstructive pulmonary disease. a. Acute exacerbation requiring hospitalization from 10/15 to 11/03, resolving. 5. 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 a. Treated, completed therapy with 3 drugs, rifampin, pyrazinamide, and ethambutol. b. Fourth drug isoniazid had to be stopped due to drug-induced liver injury, that resolved after this had been stopped. c. No evidence of any recurrence. 6. Diabetes mellitus type 2, insulin requiring. a. Controlled with hemoglobin A1c of 7.3 on 10/17/2018. 7. Hypertension. 8. Diastolic dysfunction. 9. Chronic right heart failure, cor pulmonale. a. Complicated by severe peripheral edema that has improved as of 11/10/2018. 10. Peripheral neuropathy of the lower extremities secondary to diabetes. 11. Hyperlipidemia. 12. Candidiasis of the intergluteal crease, perineum, and oral thrush. 13. Peripheral edema. a. Secondary probably to a combined effect of venous insufficiency and the right heart failure. b. Improved, but not resolved. Weight just dropped from admission weight of 128 to weight today of 174 as of 11/10/2018. 14. Thrombocytopenia. a. Platelet count is improved from 114,000 to 127,000 as of 11/05/2018. b. Resolved with platelet count of 132 as of 11/06/2018. 15, Anemia. a. Hemoglobin of 10.0 with MCV of 71. PLAN: Continue present care. Continue PT, OT. Job ID: [id number] MTDD
--- NOTE | 2018-11-12 08:29 | PRG ---
DATE OF SERVICE: 11/11/2018 SUBJECTIVE: The patient said she is feeling better. She is having no trouble with her breathing. She slept good last night. She said her legs have gone down, but once she gets up, they start swelling again. She is working with Physical Therapy, and yesterday, walks 16 to 18 feet on 3 occasions with a rolling walker and minimal assistance. She is still requiring [id number] assistance with transfers. OBJECTIVE: GENERAL: The patient is lying in bed with the head elevated. She looks very comfortable, talkative, and appears in no distress. VITAL SIGNS: Her temperature is 98.9, pulse 99, respirations 20, O2 saturation 95% on 2 L, and blood pressure 104/64. The patient has had 4500 mL of urinary output. Her weight is down to 172 from an admission weight of 198. LUNGS: Clear. HEART: Regular rate. EXTREMITIES: Lower extremities; edema in the low back, buttock, has just trace edema in the upper legs, resolving. She still has some 1+ edema in the lower legs, but overall these are visibly much improved. LABORATORY DATA: Her lab shows an H and H of 9.1 and 29.4 with a white blood cell count of 3200 with 58% segs, 24% lymphocytes, and 13% monocytes, and platelet count of 130,000. Sodium is 137, potassium is 3.5, BUN is 14, creatinine is 0.6, GFR is 89, FBS 125. Her iron studies done on 11/06 showed a serum iron of 59, TIBC of 296, percent saturation 20%, and serum ferritin of 82. ASSESSMENT: 1. Severe generalized weakness and deconditioning. a Following hospital stay from 10/15 to 11/03. b .Requires assistance with all her ADLs. c Has been able to walk a little bit in her room with her walker and Physical Therapy, still requiring moderate to max assist on transfers as of 11/05. d. Improved. Walking 16 to 18 feet 3 times a day with a rolling walker. Still requires [id number] assist with transfers as of 11/11/2018. 2. [address] [facility] from 10/15/2018 until 11/03/2018 for postinflammatory pulmonary fibrosis with bronchiectasis with acute exacerbation and chronic obstructive pulmonary disease acute exacerbation complicated by anasarca. 3. Postinflammatory pulmonary fibrosis. a. Acute exacerbation requiring hospitalization from 10/15 to 11/03, resolving. b. Complicated by chronic hypoxemia requiring supplemental oxygen. 4. Chronic obstructive pulmonary disease. a. Acute exacerbation, requiring hospitalization from 10/15 to 11/03, resolved. 5. 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 a. Complicated by severe peripheral edema that continues to improve as of 11/11/2018. b. Fourth drug isoniazid had to be stopped due to drug-induced liver injury, that resolved after this had been stopped. c. No evidence of any recurrence. 6. Diabetes mellitus type 2, insulin requiring. a. Controlled with hemoglobin A1c of 7.3 on 10/17/2018. 7. Hypertension. 8. Diastolic dysfunction. 9. Chronic right heart failure, cor pulmonale. a. Complicated by severe peripheral edema that has not improved as of 11/06/2018. 10. Peripheral neuropathy of the lower extremities secondary to diabetes. 11. Hyperlipidemia. 12. Candidiasis of the intergluteal crease, perineum, and oral thrush. a. Improving as of 11/11/2018. 13. Peripheral edema. a. Secondary probably to a combined effect of venous insufficiency and the right heart failure. b. Marked improvement, but not resolved. Weight has dropped from an admission weight of 198 to 172 as of 11/11/2018. 14. Thrombocytopenia. a. Platelet count is improved from 114,000 to 127,000 as of 11/05/2018. b. Resolved with platelet count of 132 as of 11/06/2018. 15, Anemia. a. Stable with a hemoglobin of 9.1. PLAN: Continue present care. Continue PT. Job ID: [id number] ESDRAS
[2018-11-12] MEDS: LANTISEPTIC CREAM TOP SCH ×2 (09:24→20:42)
[2018-11-12] MEDS: HumaLOG 300 UNITS/3 ML VIAL SC PRN ×2 (11:51→16:52)
--- NOTE | 2018-11-12 13:53 | PRG ---
DATE OF SERVICE: 11/12/2018 SUBJECTIVE: The patient said she is feeling better. She is having no trouble with her breathing. She said her bottoms feeling better. She is using Lantiseptic on this, and it seems to be helping. She is working with Physical Therapy yesterday, walked up to 30 feet on 3 occasions with a rolling walker and minimal assist. She is still requiring moderate to maximum assistance with transfers. OBJECTIVE: GENERAL: The patient is sitting up in a [place] chair. She is alert, talkative, appears very comfortable, in no distress. VITAL SIGNS: Her temperature is 97.6, pulse 109, respirations 16, O2 saturation 96% on 2 L, and blood pressure 101/61. Her weight is down to 167. Urinary output 3500 over the last 24 hours. LUNGS: Clear. HEART: Regular rate. EXTREMITIES: Edema in the lower legs, resolved. There is still some pitting edema in the thighs, in the buttock area, but still this is much less. LABORATORY DATA: FBS this morning 145. ASSESSMENT: 1. Severe generalized weakness and deconditioning. a Following hospital stay from 10/15 to 11/03. b .Requires assistance with all her ADLs. c Has been able to walk a little bit in her room with her walker and Physical Therapy, still requiring moderate to max assist on transfers as of 11/05. d. Walking up to 30 feet on 3 times a day with a rolling walker and caregiver assist. Still requiring moderate to max assist with transfers as of . 2. Hospitalized at [facility] from 10/15/2018 until 11/03/2018 for postinflammatory pulmonary fibrosis with bronchiectasis with acute exacerbation and chronic obstructive pulmonary disease acute exacerbation complicated by anasarca. 3. Postinflammatory pulmonary fibrosis. a. Acute exacerbation requiring hospitalization from 10/15 to 11/03, resolving. b. Complicated by chronic hypoxemia requiring supplemental oxygen. 4. Chronic obstructive pulmonary disease. a. Acute exacerbation requiring hospitalization from 10/15 to 11/03, resolving. 5. 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 a. Treated, completed therapy with 3 drugs, rifampin, pyrazinamide, and ethambutol. b. Fourth drug isoniazid had to be stopped due to drug-induced liver injury, that resolved after this had been stopped. c. No evidence of any recurrence. 6. Diabetes mellitus type 2, insulin requiring. a. Controlled with hemoglobin A1c of 7.3 on 10/17/2018. 7. Hypertension. 8. Diastolic dysfunction. 9. Chronic right heart failure, cor pulmonale. a. Complicated by severe peripheral edema that has not improved as of 11/06/2018. b. Improved with peripheral edema markedly improved. Weight down from an admission of 198 to 167 as 11/12/2018. 10. Peripheral neuropathy of the lower extremities secondary to diabetes. 11. Hyperlipidemia. 12. Candidiasis of the intergluteal crease, perineum, and oral thrush. a. Improved as of 11/12/2018. 13. Peripheral edema. a. Secondary probably to a combined effect of venous insufficiency and the right heart failure. b.Marked improvement of edema of the lower leg that resolves. Still some edema in the upper legs and buttock. Weight down from admission of 198 to 167 as of 11/12/2018. 14. Thrombocytopenia. a. Platelet count is improved from 114,000 to 127,000 as of 11/05/2018. b. Resolved with platelet count of 132 as of 11/06/2018. 15, Anemia. a. Hemoglobin of 10.0 with MCV of 71. PLAN: Continue present care. Continue PT. Job ID: [id number] MTDD
[2018-11-12] MEDS ORDERED: Ondansetron ODT 4 MG TAB PO PRN (16:30)
[2018-11-12] MEDS: Acetaminophen 325 MG TAB PO PRN (20:39)
[2018-11-13 05:27] LABS: Anion Gap 14 mmol/L (10-20); BUN (Urea Nitrogen) 21 mg/dL (9.8-20.1); Calc. Creatinine Clearance 79 mL/min (70-130); Calcium 8.4 mg/dL (7.8-10.44); Carbon Dioxide 36 mmol/L (23-31); Chloride 90 mmol/L (98-107); Estimated GFR-MDRD 72; Glucose 126 mg/dL (80-115); Potassium 3.8 mmol/L (3.5-5.1); Sodium 136 mmol/L (136-145)
[2018-11-13 05:49] LABS: #Eosinphils 0.1 thou/uL (0.0-0.7); #Lymphocytes 1.3 thou/uL (1.20-3.40); #Monocytes 0.5 thou/uL (0.11-0.59); #Neutrophils 2.5 thou/uL (1.40-6.50); %Basophils 0.9 % (0.0-1.0); %Eosinophils 1.6 % (0.0-10.0); %Lymphocytes 30.4 % (21.0-51.0); %Monocytes 10.7 % (0.0-10.0); %Neutrophils 56.5 % (42.0-75.0); Hemoglobin 9.1 g/dL (12.0-16.0); MDiff Complete? YES; Mean Corpuscular HGB CONC 29.9 g/dL (32.0-36.0); Mean Corpuscular Hemoglobin 21.6 pg (27.0-31.0); Mean Corpuscular Volume 72.3 fL (78.0-98.0); Mean Platelet Volume 7.2 fL (7.4-10.4); Platelet Count 131 thou/uL (130-400); RBC Distribution Width 22.1 % (11.5-14.5); Red Blood Cell (RBC) Count 4.21 mill/uL (4.20-5.40); White Blood Cell (WBC) Count 4.3 thou/uL (4.8-10.8)
[2018-11-13 05:50] LABS: Hypochromia SLIGHT = 6-15 cells (100X) (0-5/hpf); Microcytosis SLIGHT = 6-15 cells (100X) (0-5/hpf); Ovalocytes SLIGHT = 2-5 cells (100X) (0-1/hpf); Platelet Morphology Comment Appears Adequate
--- NOTE | 2018-11-13 07:59 | PRG ---
DATE OF SERVICE: 11/13/2018 SUBJECTIVE: This morning, patient said she is feeling fine. She is having no shortness of breath. No chest pain. Last evening, the patient had some decrease in her blood pressure to 101/61. Her O2 tubing had not been hooked up. She is still wearing the nasal cannula and her O2 saturation dropped into the 60s. The O2 was reconnected and put up to 3 L and she came back to 97% and then gradually up to 99%. Her metolazone and furosemide were both held, suspect that pressure had dropped due to the tremendous diuresis she has had over the last week. OBJECTIVE: GENERAL: This morning, the patient is alert, talkative, appears comfortable, in no distress. VITAL SIGNS: Her temperature is 98.1, pulse 99 to 102, respirations 16, blood pressure lying was 113/71, sitting 112/78. Her weight this morning is 164. Admission weight 198; last time 198 was on 11/05. LUNGS: Clear. HEART: Regular rate. EXTREMITIES: The patient still has some pitting edema, particularly in the lower extremities, trace in the upper legs and trace in the buttock. LABORATORY DATA: Her lab shows a sodium of 136, potassium of 3.8, BUN 21, creatinine 0.79, GFR 72, FBS 126. The GFR at 72 has dropped from greater than 90 from a few days ago. ASSESSMENT: 1. Severe generalized weakness and deconditioning. a Following hospital stay from 10/15 to 11/03. b .Requires assistance with all her ADLs. c Has been able to walk a little bit in her room with her walker and Physical Therapy, still requiring moderate to max assist on transfers as of 11/05. d. Walking up to 30 feet on 3 times a day with a rolling walker and caregiver assist. Still requiring moderate to max assist with transfers as of . 2. Hospitalized at [facility] from 10/15/2018 until 11/03/2018 for postinflammatory pulmonary fibrosis with bronchiectasis with acute exacerbation and chronic obstructive pulmonary disease acute exacerbation complicated by anasarca. 3. Postinflammatory pulmonary fibrosis. a. Acute exacerbation requiring hospitalization from 10/15 to 11/03, resolving. b. Complicated by chronic hypoxemia requiring supplemental oxygen. 4. Chronic obstructive pulmonary disease. a. Acute exacerbation requiring hospitalization from 10/15 to 11/03, resolving. 5. 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 a. Treated, completed therapy with 3 drugs, rifampin, pyrazinamide, and ethambutol. b. Fourth drug isoniazid had to be stopped due to drug-induced liver injury, that resolved after this had been stopped. c. No evidence of any recurrence. 6. Diabetes mellitus type 2, insulin requiring. a. Controlled with hemoglobin A1c of 7.3 on 10/17/2018. 7. Hypertension. 8. Diastolic dysfunction. 9. Chronic right heart failure, cor pulmonale. a. Complicated by severe peripheral edema that has not improved as of 11/06/2018. b. Improved with peripheral edema improved. Weight down from 198 on 11/05 to 164 as of 11/13/2018. 10. Peripheral neuropathy of the lower extremities secondary to diabetes. 11. Hyperlipidemia. 12. Candidiasis of the intergluteal crease, perineum, and oral thrush. a. Improved as of 11/13/2018. 13. Peripheral edema. a. Secondary probably to a combined effect of venous insufficiency and the right heart failure. b.Marked improvement. Still has some edema present. Weight down from 198 on 11/05 to 164 as of 11/13/2018. 14. Thrombocytopenia. a. Platelet count is improved from 114,000 to 127,000 as of 11/05/2018. b. Resolved with platelet count of 132 as of 11/06/2018. 15, Anemia. a. Hemoglobin of 10.0 with MCV of 71. 16. Episode of decrease in blood pressure and drop in O2; decreased blood pressure on the evening of 11/12/2018. a. Secondary to probable volume depletion and decreased venous return to the heart secondary to the tremendous diuresis she has had over the last week. b. Improved as of 11/13/2018, with holding of the diuretics, that is furosemide and metolazone. PLAN: We will continue to hold the furosemide and metolazone. We will see how she does. She is not demonstrating any orthostatic pressures. We will continue to let therapy work with her. She said her weight prior to these hospitalizations was in the 140s. Job ID: [id number] [facility]
[2018-11-13] MEDS: metFORMIN 500 MG TAB PO SCH ×2 (08:21→17:11)
[2018-11-13] MEDS: Fluconazole 100 MG TAB PO SCH (08:22)
[2018-11-13] MEDS: Clotrimazole 1% Cream 15 GM TUBE TOP SCH ×2 (08:23→20:32)
[2018-11-13] MEDS: Proctozone-HC 2.5% Cream 30 GM TUBE TOP SCH ×4 (08:23→20:34)
[2018-11-13] MEDS: Enoxaparin Sodium 40 MG/0.4 ML SYRINGE SC SCH (08:23)
[2018-11-13] MEDS: LANTISEPTIC CREAM TOP SCH ×2 (08:24→20:34)
[2018-11-13] MEDS: HumaLOG 300 UNITS/3 ML VIAL SC PRN ×2 (11:49→17:12)
[2018-11-14] MEDS: metFORMIN 500 MG TAB PO SCH ×2 (08:08→17:17)
[2018-11-14] MEDS: Furosemide 40 MG TAB PO SCH (08:08)
[2018-11-14] MEDS: Fluconazole 100 MG TAB PO SCH (08:08)
[2018-11-14] MEDS: Enoxaparin Sodium 40 MG/0.4 ML SYRINGE SC SCH (08:08)
[2018-11-14] MEDS: Clotrimazole 1% Cream 15 GM TUBE TOP SCH ×2 (08:09→20:40)
[2018-11-14] MEDS: Proctozone-HC 2.5% Cream 30 GM TUBE TOP SCH ×4 (08:09→20:41)
[2018-11-14] MEDS: LANTISEPTIC CREAM TOP SCH ×2 (08:10→20:42)
[2018-11-14] MEDS: HumaLOG 300 UNITS/3 ML VIAL SC PRN (13:42)
[2018-11-14] MEDS: Acetaminophen 325 MG TAB PO PRN (15:21)
[2018-11-15] MEDS: Enoxaparin Sodium 40 MG/0.4 ML SYRINGE SC SCH (08:34)
[2018-11-15] MEDS: metFORMIN 500 MG TAB PO SCH ×2 (08:34→17:11)
[2018-11-15] MEDS: Furosemide 40 MG TAB PO SCH (08:34)
[2018-11-15] MEDS: Fluconazole 100 MG TAB PO SCH (08:34)
[2018-11-15] MEDS: LANTISEPTIC CREAM TOP SCH ×2 (08:36→20:15)
[2018-11-15] MEDS: Clotrimazole 1% Cream 15 GM TUBE TOP SCH ×2 (08:36→20:15)
[2018-11-15] MEDS: Proctozone-HC 2.5% Cream 30 GM TUBE TOP SCH ×4 (08:36→20:15)
[2018-11-16 06:09] LABS: #Lymphocytes 1.3 thou/uL (1.20-3.40); #Monocytes 0.5 thou/uL (0.11-0.59); #Neutrophils 2.7 thou/uL (1.40-6.50); %Basophils 0.8 % (0.0-1.0); %Eosinophils 0.8 % (0.0-10.0); %Lymphocytes 27.7 % (21.0-51.0); %Monocytes 11.2 % (0.0-10.0); %Neutrophils 59.5 % (42.0-75.0); Mean Corpuscular HGB CONC 29.7 g/dL (32.0-36.0); Mean Corpuscular Hemoglobin 21.7 pg (27.0-31.0); Mean Platelet Volume 7.1 fL (7.4-10.4); Platelet Count 139 thou/uL (130-400); Red Blood Cell (RBC) Count 4.13 mill/uL (4.20-5.40); White Blood Cell (WBC) Count 4.5 thou/uL (4.8-10.8)
[2018-11-16 06:20] LABS: Anion Gap 14 mmol/L (10-20); BUN (Urea Nitrogen) 17 mg/dL (9.8-20.1); Calc. Creatinine Clearance 87 mL/min (70-130); Calcium 8.7 mg/dL (7.8-10.44); Carbon Dioxide 32 mmol/L (23-31); Chloride 95 mmol/L (98-107); Estimated GFR-MDRD 83; Glucose 127 mg/dL (80-115); Potassium 3.9 mmol/L (3.5-5.1); Sodium 137 mmol/L (136-145)
[2018-11-16 06:34] LABS: Hypochromia SLIGHT = 6-15 cells (100X) (0-5/hpf); MDiff Complete? YES; Microcytosis SLIGHT = 6-15 cells (100X) (0-5/hpf); Platelet Morphology Comment Appears Adequate; Poikilocytosis SLIGHT = 6-15 cells (100X) (0-5/hpf)
[2018-11-16] MEDS: Fluconazole 100 MG TAB PO SCH (08:40)
[2018-11-16] MEDS: Furosemide 40 MG TAB PO SCH (08:40)
[2018-11-16] MEDS: metFORMIN 500 MG TAB PO SCH ×2 (08:40→17:14)
[2018-11-16] MEDS: Enoxaparin Sodium 40 MG/0.4 ML SYRINGE SC SCH (08:41)
[2018-11-16] MEDS: Proctozone-HC 2.5% Cream 30 GM TUBE TOP SCH ×4 (08:42→21:00)
[2018-11-16] MEDS: Clotrimazole 1% Cream 15 GM TUBE TOP SCH ×2 (08:42→20:59)
[2018-11-16] MEDS: LANTISEPTIC CREAM TOP SCH ×2 (08:42→21:00)
--- NOTE | 2018-11-16 08:44 | PRG ---
DATE OF SERVICE: 11/14/2018 SUBJECTIVE: The patient says she is feeling good today. She says her breathing is good. Her appetite has been good. She has been tolerating sitting up in a chair. Her daughter, Abi Galloway, from [place] is visiting with her and had a lot of questions about her condition that I have answered. OBJECTIVE: GENERAL: The patient is alert. She is sitting up in her chair. She is talkative, appears very comfortable, and in no distress. VITAL SIGNS: Temperature of 97.4, pulse 106, respirations 22, O2 saturation 95 % on 3 L, and blood pressure 100/66. Her weight is 162. Her urinary output over the last 24 hours was 1900. LUNGS: Clear. HEART: Regular rate. EXTREMITIES: There is some 1+ edema in the lower extremities, little more than what there was, but she is sitting with the legs dependent. LABORATORY DATA: Her FBS this morning was 149. ASSESSMENT: 1. Severe generalized weakness and deconditioning. a Following hospital stay from 10/15 to 11/03. b .Requires assistance with all her ADLs. c Has been able to walk a little bit in her room with her walker and Physical Therapy, still requiring moderate to max assist on transfers as of 11/05. d. Walking up to 35 feet with a rolling walker and a caregiver assist. Still requiring [id number] assist with transfers as of 11/14/2018. 2. Hospitalized at [facility] from 10/15/2018 until 11/03/2018 for postinflammatory pulmonary fibrosis with bronchiectasis with acute exacerbation and chronic obstructive pulmonary disease acute exacerbation complicated by anasarca. 3. Postinflammatory pulmonary fibrosis. a. Acute exacerbation requiring hospitalization from 10/15 to 11/03, resolving. b. Complicated by chronic hypoxemia requiring supplemental oxygen. c. Complicated by pulmonary hypertension and cor pulmonale with chronic right heart failure. 4. Chronic obstructive pulmonary disease. a. Acute exacerbation requiring hospitalization from 10/15 to 11/03, resolving. 5. 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 a. Treated, completed therapy with 3 drugs, rifampin, pyrazinamide, and ethambutol. b. Fourth drug isoniazid had to be stopped due to drug-induced liver injury, that resolved after this had been stopped. c. No evidence of any recurrence. 6. Diabetes mellitus type 2, insulin requiring. a. Controlled with hemoglobin A1c of 7.3 on 10/17/2018. 7. Hypertension. 8. Diastolic dysfunction. 9. Chronic right heart failure, cor pulmonale. a. Complicated by severe lower body and extremity edema. B, improved. Weight down from admission of 198 to 162 as of 2018. b. Improved with peripheral edema markedly improved. Weight down from an admission of 198 to 167 as 11/12/2018. 10. Peripheral neuropathy of the lower extremities secondary to diabetes. 11. Hyperlipidemia. 12. Candidiasis of the intergluteal crease, perineum, and oral thrush. a. Improved as of 11/14/2018. 13. Peripheral edema. a. Secondary probably to a combined effect of venous insufficiency and the right heart failure. b.Marked improvement in edema. Still has edema in the lower buttock and legs, but better. Weight down from admission of 198 to 162 as of 11/14/2018. 14. Thrombocytopenia. a. Platelet count is improved from 114,000 to 127,000 as of 11/05/2018. b. Resolved with platelet count of 132 as of 11/06/2018. 15, Anemia. a. Hemoglobin of 10.0 with MCV of 71. PLAN: Continue present care. Presently, I have held the diuretics. She is still diuresing good. The diuretics were held because she had had a little decline in her blood pressure and probably decreased venous return causing some drop in her O2, this so has improved. The patient needs continuation of present care. Visited with the patient's daughter, Abi and the patient about her condition and ways to try to help control this when she goes home. Goals are for her to go home depending upon her functional capability. Depending on where she is, she will need to either stay with the daughter, Abi, which she said she can do and at least transition to her home before attempting to go to her own home. Job ID: [id number] [facility]
--- NOTE | 2018-11-16 10:48 | PRG ---
DATE OF SERVICE: 11/16/2018 SUBJECTIVE: The patient says she is feeling good this morning. She is in Physical Therapy room, working on the NuStep, working her arms and her legs. She has had no shortness of breath. OBJECTIVE: GENERAL: The patient is alert, appears comfortable, in no distress. VITAL SIGNS: Temperature was 99.3 last evening. This morning, temperature pending, pulse 89, respirations are 18, O2 saturation 96% on 2 L, blood pressure 101/64. Output has been 3250. Weight is 160. LUNGS: Clear. HEART: Regular rate. EXTREMITIES: In her lower extremities, there is still some pitting edema in the lower extremities. Overall, the leg size are less. There is very mild edema in the upper legs. LABORATORY DATA: Sodium 137, potassium 3.9, BUN 17, creatinine 0.7, GFR 183, glucose 127. ASSESSMENT: 1. Severe generalized weakness and deconditioning. a Following hospital stay from 10/15 to 11/03. b .Requires assistance with all her ADLs. c Has been able to walk a little bit in her room with her walker and Physical Therapy, still requiring moderate to max assist on transfers as of 11/05. d. Walking a little further with a rolling walker and caregiver assist. Still requiring moderate assistance with all transfers as of 11/16/2018. 2. Hospitalized at [facility] from 10/15/2018 until 11/03/2018 for postinflammatory pulmonary fibrosis with bronchiectasis with acute exacerbation and chronic obstructive pulmonary disease acute exacerbation complicated by anasarca. 3. Postinflammatory pulmonary fibrosis. a. Acute exacerbation requiring hospitalization from 10/15 to 11/03, resolving. b. Complicated by chronic hypoxemia requiring supplemental oxygen. 4. Chronic obstructive pulmonary disease. a. Acute exacerbation requiring hospitalization from 10/15 to 11/03, resolving. 5. 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 a. Treated, completed therapy with 3 drugs, rifampin, pyrazinamide, and ethambutol. b. Fourth drug isoniazid had to be stopped due to drug-induced liver injury, that resolved after this had been stopped. c. No evidence of any recurrence. 6. Diabetes mellitus type 2, insulin requiring. a. Controlled with hemoglobin A1c of 7.3 on 10/17/2018. 7. Hypertension. 8. Diastolic dysfunction. 9. Chronic right heart failure, cor pulmonale. a. Complicated by severe peripheral edema that has not improved as of 11/06/2018. b. Improved, weight down from 198 on admission to 160 as of 11/16/2018. 10. Peripheral neuropathy of the lower extremities secondary to diabetes. 11. Hyperlipidemia. 12. Candidiasis of the intergluteal crease, perineum, and oral thrush. a. Resolving as of 11/16/2018. 13. Peripheral edema. a. Secondary probably to a combined effect of venous insufficiency and the right heart failure. b.Continued improvement, but not resolved. Weight down from 198 to 160 as of 11/16/2018. 14. Thrombocytopenia. a. Platelet count is improved from 114,000 to 127,000 as of 11/05/2018. b. Resolved with platelet count of 132 as of 11/06/2018. 15, Anemia. a. Hemoglobin of 10.0 with MCV of 71. PLAN: Continue present care. Continue PT and OT. Job ID: [id number] MTDD
[2018-11-16] MEDS: HumaLOG 300 UNITS/3 ML VIAL SC PRN ×2 (12:37→17:15)
[2018-11-16] MEDS: Acetaminophen 325 MG TAB PO PRN (15:37)
[2018-11-16] MEDS: Montelukast Sodium 10 mg Tablet PO SCH (20:58)
[2018-11-17] MEDS: Enoxaparin Sodium 40 MG/0.4 ML SYRINGE SC SCH (08:12)
[2018-11-17] MEDS: Clotrimazole 1% Cream 15 GM TUBE TOP SCH ×2 (08:13→21:16)
[2018-11-17] MEDS: Fluconazole 100 MG TAB PO SCH (08:13)
[2018-11-17] MEDS: Furosemide 40 MG TAB PO SCH (08:13)
[2018-11-17] MEDS: metFORMIN 500 MG TAB PO SCH ×2 (08:13→16:47)
[2018-11-17] MEDS: Proctozone-HC 2.5% Cream 30 GM TUBE TOP SCH ×4 (08:14→21:14)
[2018-11-17] MEDS: LANTISEPTIC CREAM TOP SCH ×2 (08:15→21:18)
[2018-11-17] MEDS: HumaLOG 300 UNITS/3 ML VIAL SC PRN (11:55)
--- NOTE | 2018-11-17 12:24 | PRG ---
DATE OF SERVICE: 11/17/2018 SUBJECTIVE: The patient said that she is feeling good. She is not having any trouble with her breathing. Nurses said that her bottom looks better. There are still areas of excoriation and the area is not well, but improved. She still has a Gross catheter removed and at this time with her frequent urination and incontinence will just result in maceration and worsening. Catheter will stay put for a while. She is working with Physical Therapy and walking yesterday 150 feet, and 100 feet a second time with rolling walker and minimal assist. She is requiring yesterday just minimum assistance with transfers. OBJECTIVE: GENERAL: The patient is sitting up in her Tenn[place] chair. She is alert , talkative, looks better. Appears in no distress. VITAL SIGNS: Her temp is 98.2, pulse 107, respirations 16, O2 saturation 95% on 2 L, blood pressure 98/57. Her weight is down to 158 from admission weight of 198 , output is 1900 over the last 24 hours. LUNGS: Clear. HEART: Regular rate. LOWER EXTREMITIES: 1+ edema in the lower legs. ASSESSMENT: 1. Severe generalized weakness and deconditioning. a Following hospital stay from 10/15 to 11/03. b .Requires assistance with all her ADLs. c Has been able to walk a little bit in her room with her walker and Physical Therapy, still requiring moderate to max assist on transfers as of 11/05. d. Improved. Walking 100 to 150 feet on two occasions yesterday with rolling walker and minimum assist. Transferring with some minimum assistance as of 09/2018. 2. Hospitalized at [facility] from 10/15/2018 until 11/03/2018 for postinflammatory pulmonary fibrosis with bronchiectasis with acute exacerbation and chronic obstructive pulmonary disease acute exacerbation complicated by anasarca. 3. Postinflammatory pulmonary fibrosis. a. Acute exacerbation requiring hospitalization from 10/15 to 11/03, resolving. b. Complicated by chronic hypoxemia requiring supplemental oxygen. 4. Chronic obstructive pulmonary disease. a. Acute exacerbation requiring hospitalization from 10/15 to 11/03, resolving. 5. 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 a. Treated, completed therapy with 3 drugs, rifampin, pyrazinamide, and ethambutol. b. Fourth drug isoniazid had to be stopped due to drug-induced liver injury, that resolved after this had been stopped. c. No evidence of any recurrence. 6. Diabetes mellitus type 2, insulin requiring. a. Controlled with hemoglobin A1c of 7.3 on 10/17/2018. 7. Hypertension. 8. Diastolic dysfunction. 9. Chronic right heart failure, cor pulmonale. a. Complicated by severe peripheral edema that has not improved as of 11/06/2018. b. Improved. Weight down from 198 on admission to 158 as of 11/17/2018. 10. Peripheral neuropathy of the lower extremities secondary to diabetes. 11. Hyperlipidemia. 12. Candidiasis of the intergluteal crease, perineum, and oral thrush. a. Resolving as of 11/16/2018. 13. Peripheral edema. a. Secondary probably to a combined effect of venous insufficiency and the right heart failure. b.Improved, but still has some edema in the lower extremities. Presently off diuretics. Weight down from an admission weight of 198 to 158 as of 11/17/2018. 14. Thrombocytopenia. a. Platelet count is improved from 114,000 to 127,000 as of 11/05/2018. b. Resolved with platelet count of 132 as of 11/06/2018. 15, Anemia. a. Hemoglobin of 10.0 with MCV of 71. PLAN: Continue present care. Continue PT. We will try knee-high support hose. Job ID: [id number] [facility]
[2018-11-17] MEDS: Montelukast Sodium 10 mg Tablet PO SCH (21:16)
[2018-11-18] MEDS: Fluconazole 100 MG TAB PO SCH (08:25)
[2018-11-18] MEDS: metFORMIN 500 MG TAB PO SCH ×2 (08:25→17:04)
[2018-11-18] MEDS: Enoxaparin Sodium 40 MG/0.4 ML SYRINGE SC SCH (08:25)
[2018-11-18] MEDS: Furosemide 40 MG TAB PO SCH (08:25)
[2018-11-18] MEDS: Clotrimazole 1% Cream 15 GM TUBE TOP SCH ×2 (08:26→20:13)
[2018-11-18] MEDS: Proctozone-HC 2.5% Cream 30 GM TUBE TOP SCH ×4 (08:26→20:13)
[2018-11-18] MEDS: LANTISEPTIC CREAM TOP SCH ×2 (08:27→20:16)
--- NOTE | 2018-11-18 11:23 | PRG ---
DATE OF SERVICE: 11/18/2018 SUBJECTIVE: The patient says she is doing better. She is feeling better. Her bottom is feeling better. This morning, she is already up in Physical Therapy Department, working on the NuStep. Yesterday, she walked up to 150 feet with a rolling walker and caregiver assist. Her transfers are getting a little easier. OBJECTIVE: GENERAL: The patient is sitting on the NuStep, working her arms and legs. She is alert, appears comfortable, in no distress. VITAL SIGNS: Temperature 98.2, pulse 118, respirations 14, O2 saturation 92% on 2 L, blood pressure 104/62. Output was 1850. Weight 159. LUNGS: Clear. HEART: Regular rate. EXTREMITIES: The patient has 1+ edema of the lower legs. She started using knee-high support hose yesterday, but has not put them on this morning. ASSESSMENT: 1. Severe generalized weakness and deconditioning. a Following hospital stay from 10/15 to 11/03. b .Requires assistance with all her ADLs. c Has been able to walk a little bit in her room with her walker and Physical Therapy, still requiring moderate to max assist on transfers as of 11/05. d. Improved. Walking up to 150 feet with a rolling walker and minimum assistance. Transfers are improving as of 11/18/2018. 2. Hospitalized at [facility] from 10/15/2018 until 11/03/2018 for postinflammatory pulmonary fibrosis with bronchiectasis with acute exacerbation and chronic obstructive pulmonary disease acute exacerbation complicated by anasarca. 3. Postinflammatory pulmonary fibrosis. a. Acute exacerbation requiring hospitalization from 10/15 to 11/03, resolving. b. Complicated by chronic hypoxemia requiring supplemental oxygen. 4. Chronic obstructive pulmonary disease. a. Acute exacerbation requiring hospitalization from 10/15 to 11/03, resolving. 5. 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 a. Treated, completed therapy with 3 drugs, rifampin, pyrazinamide, and ethambutol. b. Fourth drug isoniazid had to be stopped due to drug-induced liver injury, that resolved after this had been stopped. c. No evidence of any recurrence. 6. Diabetes mellitus type 2, insulin requiring. a. Controlled with hemoglobin A1c of 7.3 on 10/17/2018. 7. Hypertension. 8. Diastolic dysfunction. 9. Chronic right heart failure, cor pulmonale. a. Complicated by severe peripheral edema that has not improved as of 11/06/2018. b. Improved. Weight down from 198 on admission to 158 as of 11/17/2018. Weight 159 on 11/18/2018. 10. Peripheral neuropathy of the lower extremities secondary to diabetes. 11. Hyperlipidemia. 12. Candidiasis of the intergluteal crease, perineum, and oral thrush. a. Resolving as of 11/16/2018. 13. Peripheral edema. a. Secondary probably to a combined effect of venous insufficiency and the right heart failure. b. Weight 159 on 11/18/2018. 14. Thrombocytopenia. a. Platelet count is improved from 114,000 to 127,000 as of 11/05/2018. b. Resolved with platelet count of 132 as of 11/06/2018. 15, Anemia. a. Hemoglobin of 10.0 with MCV of 71. PLAN: Continue present care. Continue PT. Job ID: [id number] [facility]
[2018-11-18] MEDS: HumaLOG 300 UNITS/3 ML VIAL SC PRN (17:05)
[2018-11-18] MEDS: Montelukast Sodium 10 mg Tablet PO SCH (20:15)
[2018-11-19] MEDS: Enoxaparin Sodium 40 MG/0.4 ML SYRINGE SC SCH (08:12)
[2018-11-19] MEDS: metFORMIN 500 MG TAB PO SCH ×2 (08:13→17:09)
[2018-11-19] MEDS: Furosemide 40 MG TAB PO SCH (08:13)
[2018-11-19] MEDS: LANTISEPTIC CREAM TOP SCH ×2 (08:13→20:44)
[2018-11-19] MEDS: Proctozone-HC 2.5% Cream 30 GM TUBE TOP SCH ×4 (08:13→20:44)
[2018-11-19] MEDS: Fluconazole 100 MG TAB PO SCH (08:13)
[2018-11-19] MEDS: Clotrimazole 1% Cream 15 GM TUBE TOP SCH ×2 (08:14→20:45)
[2018-11-19] MEDS: HumaLOG 300 UNITS/3 ML VIAL SC PRN ×2 (11:56→17:09)
[2018-11-19] MEDS: Montelukast Sodium 10 mg Tablet PO SCH (20:46)
[2018-11-19] MEDS: traMADol HCl 50 MG TAB PO PRN (20:48)
[2018-11-20] MEDS: Enoxaparin Sodium 40 MG/0.4 ML SYRINGE SC SCH (08:02)
[2018-11-20] MEDS: Fluconazole 100 MG TAB PO SCH (08:02)
[2018-11-20] MEDS: Furosemide 40 MG TAB PO SCH (08:02)
[2018-11-20] MEDS: metFORMIN 500 MG TAB PO SCH ×2 (08:02→17:21)
[2018-11-20] MEDS: Proctozone-HC 2.5% Cream 30 GM TUBE TOP SCH ×4 (08:02→20:37)
[2018-11-20] MEDS: LANTISEPTIC CREAM TOP SCH ×2 (08:03→20:37)
[2018-11-20] MEDS: Clotrimazole 1% Cream 15 GM TUBE TOP SCH ×2 (08:06→20:41)
--- NOTE | 2018-11-20 11:31 | PRG ---
DATE OF SERVICE: 11/20/2018 SUBJECTIVE: The patient said she is feeling better. She said she had a slight cough, but no fever. She has not been short of breath. Her swelling is down. Yesterday, she walked between 100 and 150 feet several times with a rolling walker and minimal caregiver assist. She is requiring some minimal help with her transfers. OBJECTIVE: GENERAL: The patient is lying in bed. She is alert, appears comfortable, and in no distress. VITAL SIGNS: Show a temperature 97.4, pulse 105, respirations 18, O2 saturation 95% on 2 L, blood pressure 113/71. Her weight is 160. LUNGS: Clear. HEART: Regular rate. EXTREMITIES: The patient still has 1+ edema in the lower legs, but just trace in the upper legs and lower back. Her FBS this morning was 111. Her bottom area and sacral area look better. There are still superficial ulcerations present, and there are still some present on the labia, but overall much improved. See photos taken on 11/19/2018. ASSESSMENT: 1. Severe generalized weakness and deconditioning. a Following hospital stay from 10/15 to 11/03. b .Requires assistance with all her ADLs. c Has been able to walk a little bit in her room with her walker and Physical Therapy, still requiring moderate to max assist on transfers as of 11/05. d. Improved. Walking 100 to 150 feet several times a day with a rolling walker and minimal standby assistance. Transferring with minimal assistance as of 11/20/2018. 2. Hospitalized at [facility] from 10/15/2018 until 11/03/2018 for postinflammatory pulmonary fibrosis with bronchiectasis with acute exacerbation and chronic obstructive pulmonary disease acute exacerbation complicated by anasarca. 3. Postinflammatory pulmonary fibrosis. a. Acute exacerbation requiring hospitalization from 10/15 to 11/03, resolving. b. Complicated by chronic hypoxemia requiring supplemental oxygen. 4. Chronic obstructive pulmonary disease. a. Resolved as of 11/20/2018. 5. 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 a. Treated, completed therapy with 3 drugs, rifampin, pyrazinamide, and ethambutol. b. Fourth drug isoniazid had to be stopped due to drug-induced liver injury, that resolved after this had been stopped. c. No evidence of any recurrence. 6. Diabetes mellitus type 2, insulin requiring. a. Controlled with hemoglobin A1c of 7.3 on 10/17/2018. 7. Hypertension. 8. Diastolic dysfunction. 9. Chronic right heart failure, cor pulmonale. a. Complicated by severe peripheral edema that has not improved as of 11/06/2018. b. Improved. Weight down from admission of 198 to a low of 158. Weight is 160 as of 11/20/2018. 10. Peripheral neuropathy of the lower extremities secondary to diabetes. 11. Hyperlipidemia. 12. Candidiasis of the intergluteal crease, perineum, and oral thrush. a. Resolving as of 11/16/2018. 13. Peripheral edema. a. Secondary probably to a combined effect of venous insufficiency and the right heart failure. b. Improved. Still some edema in the lower extremities. The patient is off her diuretics. Weight down from admission weight of 198 to a low of 158. Present weight of 160 as of 11/20/2018. 14. Thrombocytopenia. a. Platelet count is improved from 114,000 to 127,000 as of 11/05/2018. b. Resolved with platelet count of 132 as of 11/06/2018. 15, Anemia. a. Hemoglobin of 10.0 with MCV of 71. 16. Superficial ulcerations on the sacrum and perineum, that continue to heal. a.. Has required indwelling Gross catheter due to her incontinence to prevent the maceration. PLAN: Overall, the patient is improving. Her strength is improving. Her ulcerations on her bottom are all continuing to heal. She will continue to need the Gross catheter until this area is totally healed. I have tentatively looked toward another week of physical therapy to help improve her strength and hopefully get her bottom well and then get her Gross catheter out. She does plan on while discharge staying with her daughter. Job ID: [id number] MTDD
[2018-11-20] MEDS: HumaLOG 300 UNITS/3 ML VIAL SC PRN (12:08)
[2018-11-20] MEDS: LANTISEPTIC CREAM TOP PRN (20:37)
[2018-11-20] MEDS: traMADol HCl 50 MG TAB PO PRN (20:38)
[2018-11-20] MEDS: Montelukast Sodium 10 mg Tablet PO SCH (20:38)
[2018-11-21] MEDS: Enoxaparin Sodium 40 MG/0.4 ML SYRINGE SC SCH (08:45)
[2018-11-21] MEDS: Furosemide 40 MG TAB PO SCH (08:45)
[2018-11-21] MEDS: Fluconazole 100 MG TAB PO SCH (08:45)
[2018-11-21] MEDS: metFORMIN 500 MG TAB PO SCH ×2 (08:45→17:08)
[2018-11-21] MEDS: Proctozone-HC 2.5% Cream 30 GM TUBE TOP SCH ×4 (08:46→20:30)
[2018-11-21] MEDS: Clotrimazole 1% Cream 15 GM TUBE TOP SCH ×2 (08:46→20:29)
[2018-11-21] MEDS: LANTISEPTIC CREAM TOP SCH ×2 (08:47→20:30)
[2018-11-21] MEDS: LANTISEPTIC CREAM TOP PRN (20:29)
[2018-11-21] MEDS: traMADol HCl 50 MG TAB PO PRN (20:31)
[2018-11-21] MEDS: Montelukast Sodium 10 mg Tablet PO SCH (20:31)
[2018-11-22] MEDS: Enoxaparin Sodium 40 MG/0.4 ML SYRINGE SC SCH (08:40)
[2018-11-22] MEDS: Furosemide 40 MG TAB PO SCH (08:40)
[2018-11-22] MEDS: Clotrimazole 1% Cream 15 GM TUBE TOP SCH (08:40)
[2018-11-22] MEDS: metFORMIN 500 MG TAB PO SCH ×2 (08:40→17:05)
[2018-11-22] MEDS: LANTISEPTIC CREAM TOP SCH ×2 (08:41→20:10)
[2018-11-22] MEDS: Proctozone-HC 2.5% Cream 30 GM TUBE TOP SCH (08:41)
[2018-11-22] MEDS: Montelukast Sodium 10 mg Tablet PO SCH (20:10)
[2018-11-22] MEDS: traMADol HCl 50 MG TAB PO PRN (20:10)
[2018-11-23 05:31] LABS: Anion Gap 16 mmol/L (10-20); BUN (Urea Nitrogen) 17 mg/dL (9.8-20.1); Calc. Creatinine Clearance 88 mL/min (70-130); Calcium 8.7 mg/dL (7.8-10.44); Chloride 99 mmol/L (98-107); Estimated GFR-MDRD 84; Glucose 117 mg/dL (80-115); Sodium 139 mmol/L (136-145)
[2018-11-23 05:37] LABS: Carbon Dioxide 28 mmol/L (23-31)
[2018-11-23 05:48] LABS: #Basophils 0.1 thou/uL (0.0-0.2); #Lymphocytes 1.2 thou/uL (1.20-3.40); #Monocytes 0.6 thou/uL (0.11-0.59); #Neutrophils 3.6 thou/uL (1.40-6.50); %Basophils 1.2 % (0.0-1.0); %Eosinophils 0.7 % (0.0-10.0); %Lymphocytes 22.4 % (21.0-51.0); %Monocytes 10.2 % (0.0-10.0); %Neutrophils 65.4 % (42.0-75.0); Anisocytosis SLIGHT = 6-15 cells (100X) (0-5/hpf); Elliptocytes SLIGHT = 2-5 cells (100X) (0-1/hpf); Hemoglobin 8.6 g/dL (12.0-16.0); Hypochromia MODERATE=16-30 cells (100X) (0-5/hpf); MDiff Complete? YES; Mean Corpuscular HGB CONC 29.7 g/dL (32.0-36.0); Mean Corpuscular Hemoglobin 22.3 pg (27.0-31.0); Mean Corpuscular Volume 75.2 fL (78.0-98.0); Mean Platelet Volume 6.6 fL (7.4-10.4); Microcytosis SLIGHT = 6-15 cells (100X) (0-5/hpf); Platelet Count 174 thou/uL (130-400); Platelet Morphology Comment Appears Adequate; Poikilocytosis SLIGHT = 6-15 cells (100X) (0-5/hpf); RBC Distribution Width 22.1 % (11.5-14.5); RBC Morphology Abnormal; Red Blood Cell (RBC) Count 3.86 mill/uL (4.20-5.40); White Blood Cell (WBC) Count 5.5 thou/uL (4.8-10.8)
[2018-11-23] MEDS: Enoxaparin Sodium 40 MG/0.4 ML SYRINGE SC SCH (08:39)
[2018-11-23] MEDS: Furosemide 40 MG TAB PO SCH (08:39)
[2018-11-23] MEDS: metFORMIN 500 MG TAB PO SCH ×2 (08:39→17:08)
[2018-11-23] MEDS: LANTISEPTIC CREAM TOP SCH ×2 (08:39→21:36)
--- NOTE | 2018-11-23 09:09 | PRG ---
DATE OF SERVICE: 11/23/2018 SUBJECTIVE: The patient says she is doing good. She still worked with Physical Therapy. Her bottom is doing better. Nurses report this has improved. OBJECTIVE: GENERAL: The patient is lying in bed, alert, appears comfortable, in no distress. VITAL SIGNS: Her temperature is 98, pulse 94, respirations 18, O2 saturation 97 % on 2 L, blood pressure 113/56. Her weight is 162. LUNGS: Clear. HEART: Regular rate. EXTREMITIES: There is just trace edema in the lower legs. SKIN: On the buttocks, the wounds are almost totally healed. There are two tiny areas that are probably less than 5 mm in diameter that is not completely closed off. LABORATORY DATA: Her lab shows an H and H of 8.6 and 29, white cell count 5500 with 65% segs, 22% lymphocytes, and a platelet count of a 174,000. Sodium 139, potassium 4, BUN 17, creatinine 0.69, GFR 84. FBS 117. ASSESSMENT: 1. Severe generalized weakness and deconditioning. a Following hospital stay from 10/15 to 11/03. b .Requires assistance with all her ADLs. c Has been able to walk a little bit in her room with her walker and Physical Therapy, still requiring moderate to max assist on transfers as of 11/05. d. Improved. Walking 100 to 150 feet several times a day with a rolling walker and minimal standby assistance. Transferring with minimal assistance as of 11/23/2018. 2. Hospitalized at [facility] from 10/15/2018 until 11/03/2018 for postinflammatory pulmonary fibrosis with bronchiectasis with acute exacerbation and chronic obstructive pulmonary disease acute exacerbation complicated by anasarca. 3. Postinflammatory pulmonary fibrosis. a. Acute exacerbation requiring hospitalization from 10/15 to 11/03, resolving. b. Complicated by chronic hypoxemia requiring supplemental oxygen. 4. Chronic obstructive pulmonary disease. a. Resolved as of 11/20/2018. 5. 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 a. Treated, completed therapy with 3 drugs, rifampin, pyrazinamide, and ethambutol. b. Fourth drug isoniazid had to be stopped due to drug-induced liver injury, that resolved after this had been stopped. c. No evidence of any recurrence. 6. Diabetes mellitus type 2, insulin requiring. a. Controlled with hemoglobin A1c of 7.3 on 10/17/2018. 7. Hypertension. 8. Diastolic dysfunction. 9. Chronic right heart failure, cor pulmonale. a. Complicated by severe peripheral edema that has not improved as of 11/06/2018. b. Controlled as of 11/23/2018. 10. Peripheral neuropathy of the lower extremities secondary to diabetes. 11. Hyperlipidemia. 12. Candidiasis of the intergluteal crease, perineum, and oral thrush. a. Resolving as of 11/16/2018. 13. Peripheral edema. a. Secondary probably to a combined effect of venous insufficiency and the right heart failure. b. Controlled with only trace edema in the lower extremities. The patient remains off her diuretics. Weight down from admission of 198 to a low of 158. Present weight 162 as of 11/23/2018. 14. Thrombocytopenia. a. Platelet count is improved from 114,000 to 127,000 as of 11/05/2018. b. Resolved with platelet count of 132 as of 11/06/2018. 15, Anemia. a. Hemoglobin of 10.0 with MCV of 71. b. Hemoglobin 8.6 as of 11/23/2018. 16. Superficial ulcerations on the sacrum and perineum, that continue to heal. a.. Has required indwelling Gross catheter due to her incontinence to prevent the maceration. b. Improved as of 11/23/2018. PLAN: Continue present care. We will continue care to the bottom and continue the Gross to prevent the maceration. Probably in a couple days, will be able to stop the catheter . [facility] ID: [id number] [facility]
[2018-11-23] MEDS: Montelukast Sodium 10 mg Tablet PO SCH (21:24)
[2018-11-24] MEDS: Enoxaparin Sodium 40 MG/0.4 ML SYRINGE SC SCH (08:05)
[2018-11-24] MEDS: LANTISEPTIC CREAM TOP SCH ×2 (08:06→20:46)
[2018-11-24] MEDS: Furosemide 40 MG TAB PO SCH (08:06)
[2018-11-24] MEDS: metFORMIN 500 MG TAB PO SCH ×2 (08:06→16:50)
[2018-11-24] MEDS: traMADol HCl 50 MG TAB PO PRN (20:43)
[2018-11-24] MEDS: Montelukast Sodium 10 mg Tablet PO SCH (20:43)
[2018-11-25] MEDS: Enoxaparin Sodium 40 MG/0.4 ML SYRINGE SC SCH (08:46)
[2018-11-25] MEDS: Furosemide 40 MG TAB PO SCH (08:47)
[2018-11-25] MEDS: LANTISEPTIC CREAM TOP SCH ×2 (08:47→21:45)
[2018-11-25] MEDS: metFORMIN 500 MG TAB PO SCH ×2 (08:47→17:28)
--- NOTE | 2018-11-25 10:20 | PRG ---
DATE OF SERVICE: 11/25/2018 SUBJECTIVE: The patient is doing better. She continues to work well with physical therapy. She is now walking up to 150 feet at least 2 to 3 times a day with a rolling walker. She is transferring now, which is standby assistance. Her strength has improved. Nurses report that her bottom continues to improve except just has some tiny areas that may not have completely covered over, overall marked improvement. OBJECTIVE: GENERAL: The patient is sitting up in physical therapy room on the side of her NuStep and she is practicing getting up and down and going up and down on her toes, which she is doing very well on. She is alert, appears in no distress. VITAL SIGNS: Her temp is 97.2, pulse 100, respirations 16, O2 saturation 97%, and blood pressure 101/62. Her weight is stable at 162. LUNGS: Clear. HEART: Regular rate. EXTREMITIES: Have no edema. ASSESSMENT: 1. Severe generalized weakness and deconditioning. a Following hospital stay from 10/15 to 11/03. b .Requires assistance with all her ADLs. c Has been able to walk a little bit in her room with her walker and Physical Therapy, still requiring moderate to max assist on transfers as of 11/05. d. Improved. Walking up to 150 feet at least three times a day with a rolling walker. Transferring with just standby assistance as of 11/25/2018. 2. Hospitalized at [facility] from 10/15/2018 until 11/03/2018 for postinflammatory pulmonary fibrosis with bronchiectasis with acute exacerbation and chronic obstructive pulmonary disease acute exacerbation complicated by anasarca. 3. Postinflammatory pulmonary fibrosis. a. Acute exacerbation requiring hospitalization from 10/15 to 11/03, resolving. b. Complicated by chronic hypoxemia requiring supplemental oxygen. c. Stable as of 11/25/2018. 4. Chronic obstructive pulmonary disease. a. Resolved as of 11/20/2018. 5. 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 a. Treated, completed therapy with 3 drugs, rifampin, pyrazinamide, and ethambutol. b. Fourth drug isoniazid had to be stopped due to drug-induced liver injury, that resolved after this had been stopped. c. No evidence of any recurrence. 6. Diabetes mellitus type 2, insulin requiring. a. Controlled with hemoglobin A1c of 7.3 on 10/17/2018. 7. Hypertension. 8. Diastolic dysfunction. 9. Chronic right heart failure, cor pulmonale. a. Complicated by severe peripheral edema that has not improved as of 11/06/2018. b. Controlled as of 11/25/2018. 10. Peripheral neuropathy of the lower extremities secondary to diabetes. 11. Hyperlipidemia. 12. Candidiasis of the intergluteal crease, perineum, and oral thrush. a. Resolved. 13. Peripheral edema. a. Secondary probably to a combined effect of venous insufficiency and the right heart failure. b. Controlled with only trace edema in the lower extremities. The patient remains off her diuretics. Weight down from admission of 198 to a low of 158. Present weight 162 as of 11/25/2018. 14. Thrombocytopenia. a. Platelet count is improved from 114,000 to 127,000 as of 11/05/2018. b. Resolved with platelet count of 132 as of 11/06/2018. 15, Anemia. a. Hemoglobin of 10.0 with MCV of 71. b. Hemoglobin 8.6 as of 11/23/2018. 16. Superficial ulcerations on the sacrum and perineum, that continue to heal. a.. Has required indwelling Gross catheter due to her incontinence to prevent the maceration. b. Almost totally healed as of 11/25/2018. PLAN: Continue physical therapy. Will discontinue Gross catheter, begin bladder training. Job ID: [id number] MTDD
[2018-11-25] MEDS: HumaLOG 300 UNITS/3 ML VIAL SC PRN (17:27)
[2018-11-25] MEDS: Montelukast Sodium 10 mg Tablet PO SCH (21:45)
[2018-11-25] MEDS: traMADol HCl 50 MG TAB PO PRN (21:45)
[2018-11-26] MEDS: metFORMIN 500 MG TAB PO SCH ×2 (09:06→16:43)
[2018-11-26] MEDS: Enoxaparin Sodium 40 MG/0.4 ML SYRINGE SC SCH (09:06)
[2018-11-26] MEDS: Furosemide 40 MG TAB PO SCH (09:06)
[2018-11-26] MEDS: LANTISEPTIC CREAM TOP PRN (09:06)
[2018-11-26] MEDS: LANTISEPTIC CREAM TOP SCH ×2 (09:08→20:22)
[2018-11-26] MEDS: HumaLOG 300 UNITS/3 ML VIAL SC PRN (12:01)
--- NOTE | 2018-11-26 12:11 | PRG ---
DATE OF SERVICE: 11/26/2018 SUBJECTIVE: The patient says she is doing well. She is continuing to progress with her therapy and transferring easier. Her catheter was removed yesterday and she has been voiding fine. She has been continent except for some mild leakage. Overall, she has done excellent. OBJECTIVE: GENERAL: The patient is sitting up in a chair, alert, appears no distress. VITAL SIGNS: Temp 97.6, pulse 104, respirations 16, O2 saturation 96% on 3 L, blood pressure 112/72. Her weight is 161. LUNGS: Clear. HEART: Regular rate. EXTREMITIES: No edema. ASSESSMENT: 1. Severe generalized weakness and deconditioning. a Following hospital stay from 10/15 to 11/03. b .Requires assistance with all her ADLs. c Has been able to walk a little bit in her room with her walker and Physical Therapy, still requiring moderate to max assist on transfers as of 11/05. d. Improved. Walking up to 150 feet at least three times a day with a rolling walker. Transferring with just standby assistance as of 11/26/2018. 2. Hospitalized at [facility] from 10/15/2018 until 11/03/2018 for postinflammatory pulmonary fibrosis with bronchiectasis with acute exacerbation and chronic obstructive pulmonary disease acute exacerbation complicated by anasarca. 3. Postinflammatory pulmonary fibrosis. a. Acute exacerbation requiring hospitalization from 10/15 to 11/03, resolving. b. Complicated by chronic hypoxemia requiring supplemental oxygen. c. Stable as of 11/26/2018. 4. Chronic obstructive pulmonary disease. a. Resolved as of 11/20/2018. 5. 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 a. Treated, completed therapy with 3 drugs, rifampin, pyrazinamide, and ethambutol. b. Fourth drug isoniazid had to be stopped due to drug-induced liver injury, that resolved after this had been stopped. c. No evidence of any recurrence. 6. Diabetes mellitus type 2, insulin requiring. a. Controlled with hemoglobin A1c of 7.3 on 10/17/2018. 7. Hypertension. 8. Diastolic dysfunction. 9. Chronic right heart failure, cor pulmonale. a. Complicated by severe peripheral edema that has not improved as of 11/06/2018. b. Controlled as of 11/26/2018. 10. Peripheral neuropathy of the lower extremities secondary to diabetes. 11. Hyperlipidemia. 12. Candidiasis of the intergluteal crease, perineum, and oral thrush. a. Resolved. 13. Peripheral edema. a. Secondary probably to a combined effect of venous insufficiency and the right heart failure. b. Controlled with only trace edema in the lower extremities. The patient remains off her diuretics. Weight down from admission of 198 to a low of 158. Present weight of 161 as of 11/26/2018. 14. Thrombocytopenia. a. Platelet count is improved from 114,000 to 127,000 as of 11/05/2018. b. Resolved with platelet count of 132 as of 11/06/2018. 15, Anemia. a. Hemoglobin of 10.0 with MCV of 71. b. Hemoglobin 8.6 as of 11/23/2018. 16. Superficial ulcerations on the sacrum and perineum, that continue to heal. a.. Has required indwelling Gross catheter due to her incontinence to prevent the maceration. b. Almost totally healed as of 11/26/2018. PLAN: The patient is making good progress with her therapy. We will continue physical therapy improbable with plan on discharge in about a week. This will give her more time to help with her transfers and proximal muscle strengthening. She is doing very well without her catheter. Her bottoms almost totally healed. Job ID: [id number] [facility]
[2018-11-26] MEDS: Montelukast Sodium 10 mg Tablet PO SCH ×2 (20:21→20:27)
[2018-11-26] MEDS: Polyethylene Glycol 3350 17 GM Packet PO SCH (20:22)
[2018-11-26] MEDS: traMADol HCl 50 MG TAB PO PRN (20:26)
[2018-11-27] MEDS: metFORMIN 500 MG TAB PO SCH ×2 (08:20→16:59)
[2018-11-27] MEDS: Enoxaparin Sodium 40 MG/0.4 ML SYRINGE SC SCH (08:20)
[2018-11-27] MEDS: LANTISEPTIC CREAM TOP SCH ×2 (08:20→21:12)
[2018-11-27] MEDS: Furosemide 40 MG TAB PO SCH (08:20)
--- NOTE | 2018-11-27 10:19 | PRG ---
DATE OF SERVICE: 11/27/2018 SUBJECTIVE: The patient thinks she is doing good. She continues to make improvement with her therapy. She is transferring with standby assistance. She is walking further. She had no trouble with her breathing. She has asked for a pass to go home for a few hours on Friday or Friday, which will be tomorrow, the following day, which should be fine. She will be with her daughter who can take care of her. This will give her an opportunity to see how she does preparatory to her discharge next week. OBJECTIVE: GENERAL: The patient is in Physical Therapy Department on the [facility]. She is practicing getting up and down off this and she is doing very well. She appears in no distress. VITAL SIGNS: Her temperature 96.7, pulse 106, respirations 20, O2 saturation 97 % on room air, and blood pressure 106/61. Her weight is 164. LUNGS: Clear. HEART: Regular rate. EXTREMITIES: The patient has 1+ edema of the lower extremities. ASSESSMENT: 1. Severe generalized weakness and deconditioning. a Following hospital stay from 10/15 to 11/03. b .Requires assistance with all her ADLs. c Has been able to walk a little bit in her room with her walker and Physical Therapy, still requiring moderate to max assist on transfers as of 11/05. d. Improved. Walking up to 150 feet at least three times a day with a rolling walker. Transferring with just standby assistance as of 11/27/2018. 2. Hospitalized at [facility] from 10/15/2018 until 11/03/2018 for postinflammatory pulmonary fibrosis with bronchiectasis with acute exacerbation and chronic obstructive pulmonary disease acute exacerbation complicated by anasarca. 3. Postinflammatory pulmonary fibrosis. a. Acute exacerbation requiring hospitalization from 10/15 to 11/03, resolving. b. Complicated by chronic hypoxemia requiring supplemental oxygen. c. Stable as of 11/27/2018. 4. Chronic obstructive pulmonary disease. a. Resolved as of 11/20/2018. 5. 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 a. Treated, completed therapy with 3 drugs, rifampin, pyrazinamide, and ethambutol. b. Fourth drug isoniazid had to be stopped due to drug-induced liver injury, that resolved after this had been stopped. c. No evidence of any recurrence. 6. Diabetes mellitus type 2, insulin requiring. a. Controlled with hemoglobin A1c of 7.3 on 10/17/2018. 7. Hypertension. 8. Diastolic dysfunction. 9. Chronic right heart failure, cor pulmonale. a. Complicated by severe peripheral edema that has not improved as of 11/06/2018. b. Controlled as of 11/27/2018. 10. Peripheral neuropathy of the lower extremities secondary to diabetes. 11. Hyperlipidemia. 12. Candidiasis of the intergluteal crease, perineum, and oral thrush. a. Resolved. 13. Peripheral edema. a. Secondary probably to a combined effect of venous insufficiency and the right heart failure. b. Controlled with only trace edema in the lower extremities. The patient remains off her diuretics. Weight down from admission of 198 to a low of 158. Present weight of 164 as of 11/27/2018. 14. Thrombocytopenia. a. Platelet count is improved from 114,000 to 127,000 as of 11/05/2018. b. Resolved with platelet count of 132 as of 11/06/2018. 15, Anemia. a. Hemoglobin of 10.0 with MCV of 71. b. Hemoglobin 8.6 as of 11/23/2018. 16. Superficial ulcerations on the sacrum and perineum, that continue to heal. a.. Has required indwelling Gross catheter due to her incontinence to prevent the maceration. b. Almost totally healed as of 11/27/2018. PLAN: Continue present care. Continue PT and OT. The patient is making excellent progress and anticipate discharge in probably a week. She will go on passes next day or two for a short period. Job ID: [id number] [facility]
[2018-11-27] MEDS: HumaLOG 300 UNITS/3 ML VIAL SC PRN (16:59)
[2018-11-27] MEDS: traMADol HCl 50 MG TAB PO PRN (19:32)
[2018-11-27] MEDS: Polyethylene Glycol 3350 17 GM Packet PO SCH (21:10)
[2018-11-27] MEDS: Montelukast Sodium 10 mg Tablet PO SCH (21:10)
[2018-11-28] MEDS: metFORMIN 500 MG TAB PO SCH ×2 (08:11→17:40)
[2018-11-28] MEDS: Enoxaparin Sodium 40 MG/0.4 ML SYRINGE SC SCH (08:11)
[2018-11-28] MEDS: LANTISEPTIC CREAM TOP SCH ×2 (08:11→21:06)
[2018-11-28] MEDS: Furosemide 40 MG TAB PO SCH (08:11)
[2018-11-28] MEDS: Polyethylene Glycol 3350 17 GM Packet PO SCH (20:53)
[2018-11-28] MEDS: traMADol HCl 50 MG TAB PO PRN (20:53)
[2018-11-28] MEDS: LANTISEPTIC CREAM TOP PRN ×2 (20:56→21:04)
[2018-11-28] MEDS: Montelukast Sodium 10 mg Tablet PO SCH (21:07)
[2018-11-29] MEDS: Enoxaparin Sodium 40 MG/0.4 ML SYRINGE SC SCH (08:15)
[2018-11-29] MEDS: metFORMIN 500 MG TAB PO SCH ×2 (08:16→17:13)
[2018-11-29] MEDS: Furosemide 40 MG TAB PO SCH (08:16)
[2018-11-29] MEDS: LANTISEPTIC CREAM TOP SCH ×2 (08:16→20:36)
[2018-11-29] MEDS: Montelukast Sodium 10 mg Tablet PO SCH (20:36)
[2018-11-29] MEDS: Polyethylene Glycol 3350 17 GM Packet PO SCH (20:37)
[2018-11-30 05:53] LABS: Anion Gap 15 mmol/L (10-20); BUN (Urea Nitrogen) 18 mg/dL (9.8-20.1); Calc. Creatinine Clearance 88 mL/min (70-130); Calcium 9.1 mg/dL (7.8-10.44); Chloride 101 mmol/L (98-107); Estimated GFR-MDRD 83; Glucose 120 mg/dL (80-115); Potassium 4.2 mmol/L (3.5-5.1); Sodium 140 mmol/L (136-145)
[2018-11-30 07:32] LABS: Anisocytosis SLIGHT = 6-15 cells (100X) (0-5/hpf); Microcytosis SLIGHT = 6-15 cells (100X) (0-5/hpf); Platelet Morphology Comment Appears Adequate; Poikilocytosis SLIGHT = 6-15 cells (100X) (0-5/hpf); Schistocytes SLIGHT = 2-5 cells (100X) (0-1/hpf)
[2018-11-30 07:41] LABS: Carbon Dioxide 28 mmol/L (23-31)
[2018-11-30] MEDS: Enoxaparin Sodium 40 MG/0.4 ML SYRINGE SC SCH (08:20)
[2018-11-30] MEDS: LANTISEPTIC CREAM TOP SCH ×2 (08:20→20:27)
[2018-11-30] MEDS: Furosemide 40 MG TAB PO SCH (08:20)
[2018-11-30] MEDS: metFORMIN 500 MG TAB PO SCH ×2 (08:20→17:05)
--- NOTE | 2018-11-30 09:59 | PRG ---
DATE OF SERVICE: 11/30/2018 SUBJECTIVE: The patient thinks she is doing good. She did go home for a short period over the weekend for a pass. She said she did well, had a little trouble getting in and out of the vehicle. Otherwise, she thought it went great. She is having no shortness of breath. OBJECTIVE: GENERAL: The patient is sitting up in a bedside chair. She is alert, talkative, appears comfortable, in no distress. VITAL SIGNS: Her temp is 97.9, pulse 105, respirations 20, O2 saturation 95% on 2 L, and blood pressure 102/61. Her weight is 165. LUNGS: Clear. HEART: Regular rate. EXTREMITIES: The patient is wearing her knee-high support hose. She has 1+ edema of the lower legs. LABORATORY DATA: Her lab shows an H and H of 9.1 and 30.7, white cell count 6600 with 69% segs, 18% lymphocytes, and a platelet count of 215,000. Sodium 140, potassium 4.2, BUN 18, creatinine 0.7, GFR 83, and glucose 120. ASSESSMENT: 1. Severe generalized weakness and deconditioning. a Following hospital stay from 10/15 to 11/03. b .Requires assistance with all her ADLs. c Has been able to walk a little bit in her room with her walker and Physical Therapy, still requiring moderate to max assist on transfers as of 11/05. d. Improved. Walking up to 150 feet at least three times a day with a rolling walker. Transferring with just standby assistance as of 11/30/2018. 2. [address] at [facility] from 10/15/2018 until 11/03/2018 for postinflammatory pulmonary fibrosis with bronchiectasis with acute exacerbation and chronic obstructive pulmonary disease acute exacerbation complicated by anasarca. 3. Postinflammatory pulmonary fibrosis. a. Acute exacerbation requiring hospitalization from 10/15 to 11/03, resolving. b. Complicated by chronic hypoxemia requiring supplemental oxygen. c. Stable as of 11/30/2018. 4. Chronic obstructive pulmonary disease. a. Resolved as of 11/20/2018. 5. 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 a. Treated, completed therapy with 3 drugs, rifampin, pyrazinamide, and ethambutol. b. Fourth drug isoniazid had to be stopped due to drug-induced liver injury, that resolved after this had been stopped. c. No evidence of any recurrence. 6. Diabetes mellitus type 2, insulin requiring. a. Controlled with hemoglobin A1c of 7.3 on 10/17/2018. 7. Hypertension. 8. Diastolic dysfunction. 9. Chronic right heart failure, cor pulmonale. a. Complicated by severe peripheral edema that has not improved as of 11/06/2018. b. Controlled as of 11/30/2018. 10. Peripheral neuropathy of the lower extremities secondary to diabetes. 11. Hyperlipidemia. 12. Candidiasis of the intergluteal crease, perineum, and oral thrush. a. Resolved. 13. Peripheral edema. a. Secondary probably to a combined effect of venous insufficiency and the right heart failure. b. Controlled. Weight at 165 and just trace to 1+ edema to lower extremities. Wearing knee-high support hose as of 11/30/2018. 14. Thrombocytopenia. a. Platelet count is improved from 114,000 to 127,000 as of 11/05/2018. b. Resolved with platelet count of 132 as of 11/06/2018. 15, Anemia. a. Hemoglobin of 10.0 with MCV of 71. b. Hemoglobin 8.6 as of 11/23/2018. c. Hemoglobin up to 9.1 as of 11/30/2018. 16. Superficial ulcerations on the sacrum and perineum, that continue to heal. a.. Has required indwelling Gross catheter due to her incontinence to prevent the maceration. b. Almost totally healed as of 11/27/2018. PLAN: Continue present care. Continue PT. Anticipate discharge on . Job ID: [id number] [facility]
[2018-11-30] MEDS: HumaLOG 300 UNITS/3 ML VIAL SC PRN (17:05)
[2018-11-30] MEDS: Polyethylene Glycol 3350 17 GM Packet PO SCH (20:27)
[2018-11-30] MEDS: Montelukast Sodium 10 mg Tablet PO SCH (20:27)
[2018-12-01] MEDS: Acetaminophen 325 MG TAB PO PRN (01:20)
[2018-12-01] MEDS: LANTISEPTIC CREAM TOP SCH ×2 (08:37→20:13)
[2018-12-01] MEDS: metFORMIN 500 MG TAB PO SCH ×2 (08:37→17:02)
[2018-12-01] MEDS: Furosemide 40 MG TAB PO SCH (08:37)
[2018-12-01] MEDS: Enoxaparin Sodium 40 MG/0.4 ML SYRINGE SC SCH (08:37)
--- NOTE | 2018-12-01 09:48 | PRG ---
DATE OF SERVICE: 12/01/2018 SUBJECTIVE: The patient is sitting up in her bedside chair. She said she is doing better. Her strength is better. She is walking further and transferring easier. OBJECTIVE: GENERAL: The patient is alert, appears comfortable, in no distress. VITAL SIGNS: Temperature 96.9, pulse 89, respirations 16, O2 saturation 95% on 2 L, blood pressure 115/68. LUNGS: Clear. HEART: Regular rate. EXTREMITIES: The patient has 1+ edema on the lower extremities, is stable. Her weight is 165, which is stable. ASSESSMENT: 1. Severe generalized weakness and deconditioning. a Following hospital stay from 10/15 to 11/03. b .Requires assistance with all her ADLs. c Has been able to walk a little bit in her room with her walker and Physical Therapy, still requiring moderate to max assist on transfers as of 11/05. d. Improved. Walking up to 150 feet at least three times a day with a rolling walker. Transferring with just standby assistance as of 12/01/2018. 2. Hospitalized at [facility] from 10/15/2018 until 11/03/2018 for postinflammatory pulmonary fibrosis with bronchiectasis with acute exacerbation and chronic obstructive pulmonary disease acute exacerbation complicated by anasarca. 3. Postinflammatory pulmonary fibrosis. a. Acute exacerbation requiring hospitalization from 10/15 to 11/03, resolving. b. Complicated by chronic hypoxemia requiring supplemental oxygen. c. Stable as of 12/01/2018. 4. Chronic obstructive pulmonary disease. a. Resolved as of 11/20/2018. 5. 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 a. Treated, completed therapy with 3 drugs, rifampin, pyrazinamide, and ethambutol. b. Fourth drug isoniazid had to be stopped due to drug-induced liver injury, that resolved after this had been stopped. c. No evidence of any recurrence. 6. Diabetes mellitus type 2, insulin requiring. a. Controlled with hemoglobin A1c of 7.3 on 10/17/2018. 7. Hypertension. 8. Diastolic dysfunction. 9. Chronic right heart failure, cor pulmonale. a. Complicated by severe peripheral edema that has not improved as of 11/06/2018. b. Controlled as of 12/01/2018. 10. Peripheral neuropathy of the lower extremities secondary to diabetes. 11. Hyperlipidemia. 12. Candidiasis of the intergluteal crease, perineum, and oral thrush. a. Resolved. 13. Peripheral edema. a. Secondary probably to a combined effect of venous insufficiency and the right heart failure. b. Controlled. Weight at 165 and just trace to 1+ edema to lower extremities. Wearing knee-high support hose as of 11/30/2018. 14. Thrombocytopenia. a. Platelet count is improved from 114,000 to 127,000 as of 11/05/2018. b. Resolved with platelet count of 132 as of 11/06/2018. 15, Anemia. a. Hemoglobin of 10.0 with MCV of 71. b. Hemoglobin 8.6 as of 11/23/2018. c. Hemoglobin up to 9.1 as of 11/30/2018. 16. Superficial ulcerations on the sacrum and perineum, that continue to heal. a.. Has required indwelling Gross catheter due to her incontinence to prevent the maceration. b. Almost totally healed as of 11/27/2018. PLAN: Continue present care. Continue PT/OT. Tentatively plan on discharge with Home Health assisting on Friday, 12/04. Job ID: [id number] [facility]
[2018-12-01] MEDS: HumaLOG 300 UNITS/3 ML VIAL SC PRN (12:02)
[2018-12-01 13:41] LABS: #Basophils 0.1 thou/uL (0.0-0.2); #Eosinphils 0.1 thou/uL (0.0-0.7); #Lymphocytes 1.2 thou/uL (1.20-3.40); #Monocytes 0.7 thou/uL (0.11-0.59); #Neutrophils 4.5 thou/uL (1.40-6.50); %Basophils 0.9 % (0.0-1.0); %Eosinophils 1.6 % (0.0-10.0); %Lymphocytes 17.9 % (21.0-51.0); %Neutrophils 68.7 % (42.0-75.0); Hemoglobin 9.1 g/dL (12.0-16.0); Mean Corpuscular HGB CONC 29.7 g/dL (32.0-36.0); Mean Corpuscular Hemoglobin 22.2 pg (27.0-31.0); Mean Corpuscular Volume 74.6 fL (78.0-98.0); Mean Platelet Volume 6.7 fL (7.4-10.4); Platelet Count 215 thou/uL (130-400); RBC Distribution Width 21.2 % (11.5-14.5); Red Blood Cell (RBC) Count 4.12 mill/uL (4.20-5.40); White Blood Cell (WBC) Count 6.6 thou/uL (4.8-10.8)
[2018-12-01] MEDS: traMADol HCl 50 MG TAB PO PRN (17:54)
[2018-12-01 18:34] VITALS: BMI 25.1
[2018-12-01] MEDS: Polyethylene Glycol 3350 17 GM Packet PO SCH (20:13)
[2018-12-01] MEDS: Montelukast Sodium 10 mg Tablet PO SCH (20:13)
[2018-12-02] MEDS: Enoxaparin Sodium 40 MG/0.4 ML SYRINGE SC SCH (08:25)
[2018-12-02] MEDS: LANTISEPTIC CREAM TOP SCH ×2 (08:26→20:11)
[2018-12-02] MEDS: Furosemide 40 MG TAB PO SCH (08:26)
[2018-12-02] MEDS: metFORMIN 500 MG TAB PO SCH ×2 (08:26→17:07)
[2018-12-02] MEDS: traMADol HCl 50 MG TAB PO PRN (17:43)
[2018-12-02 17:50] LABS: Bilirubin Negative (Negative); Blood, Urine Negative (Negative); Clarity Clear (Clear); Glucose, Urine (Dipstick) Negative (Negative); Leukocyte Small (Negative); Nitrite Negative (Negative); Protein, Urine (Dipstick) Negative (Neg-Trace); Specific Gravity, Urine 1.015 (1.005-1.030); pH, Urine 6.5 (5.0-9.0)
[2018-12-02 17:56] LABS: Bacteria/HPF 1+ HPF (None Seen); RBC/HPF None Seen HPF (0-3); Squamous Epithelial 0-3 HPF (0-3)
[2018-12-02] MEDS: Polyethylene Glycol 3350 17 GM Packet PO SCH (20:11)
[2018-12-02] MEDS: Montelukast Sodium 10 mg Tablet PO SCH (20:11)
[2018-12-03] MEDS ORDERED: metFORMIN 500 MG TAB ONE (07:54)
[2018-12-03] MEDS ORDERED: Furosemide 40 MG TAB ONE (07:54)
[2018-12-03] MEDS ORDERED: Enoxaparin Sodium 40 MG/0.4 ML SYRINGE ONE (07:55)
[2018-12-03] MEDS: metFORMIN 500 MG TAB PO SCH (08:15)
[2018-12-03] MEDS: Enoxaparin Sodium 40 MG/0.4 ML SYRINGE SC SCH (08:15)
[2018-12-03] MEDS: Furosemide 40 MG TAB PO SCH (08:15)
[2018-12-03] MEDS: LANTISEPTIC CREAM TOP SCH (08:15)
[2018-12-03 08:44] VITALS: BP 106/71; TEMP 98
--- NOTE | 2018-12-04 11:42 | DIS ---
DATE OF ADMISSION: 11/03/2018 DATE OF DISCHARGE: 12/03/2018 FINAL DIAGNOSES: 1. Severe generalized weakness and deconditioning. a Following hospital stay from 10/15 to 11/03. b .Requires assistance with all her ADLs. c Has been able to walk a little bit in her room with her walker and Physical Therapy, still requiring moderate to max assist on transfers as of 11/05. d. Improved. Walking up to 150 feet at least three times a day with a rolling walker. Transferring with just standby assistance as of 12/01/2018. 2. Hospitalized at [facility] from 10/15/2018 until 11/03/2018 for postinflammatory pulmonary fibrosis with bronchiectasis with acute exacerbation and chronic obstructive pulmonary disease acute exacerbation complicated by anasarca. 3. Postinflammatory pulmonary fibrosis. a. Acute exacerbation requiring hospitalization from 10/15 to 11/03, resolving. b. Complicated by chronic hypoxemia requiring supplemental oxygen. c. Stable as of 12/01/2018. 4. Chronic obstructive pulmonary disease. a. Resolved as of 11/20/2018. 5. 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 a. Treated, completed therapy with 3 drugs, rifampin, pyrazinamide, and ethambutol. b. Fourth drug isoniazid had to be stopped due to drug-induced liver injury, that resolved after this had been stopped. c. No evidence of any recurrence. 6. Diabetes mellitus type 2, insulin requiring. a. Controlled with hemoglobin A1c of 7.3 on 10/17/2018. 7. Hypertension. 8. Diastolic dysfunction. 9. Chronic right heart failure, cor pulmonale. a. Complicated by severe peripheral edema that has not improved as of 11/06/2018. b. Controlled as of 12/01/2018. 10. Peripheral neuropathy of the lower extremities secondary to diabetes. 11. Hyperlipidemia. 12. Candidiasis of the intergluteal crease, perineum, and oral thrush. a. Resolved. 13. Peripheral edema. a. Secondary probably to a combined effect of venous insufficiency and the right heart failure. b. Controlled. Weight at 165 and just trace to 1+ edema to lower extremities. Wearing knee-high support hose as of 11/30/2018. 14. Thrombocytopenia. a. Platelet count is improved from 114,000 to 127,000 as of 11/05/2018. b. Resolved with platelet count of 132 as of 11/06/2018. 15, Anemia. a. Hemoglobin of 10.0 with MCV of 71. b. Hemoglobin 8.6 as of 11/23/2018. c. Hemoglobin up to 9.1 as of 11/30/2018. 16. Superficial ulcerations on the sacrum and perineum, that continue to heal. a.. Has required indwelling Gross catheter due to her incontinence to prevent the maceration. b. Healed as of 12/03/2018. SUMMARY: The patient is a 68-year-old white female, who has a history of COPD; post-inflammatory pulmonary fibrosis secondary to active pulmonary tuberculosis in September 2017, for which she was treated initially with four-drug regimen and had to stop the isoniazid due to drug-induced liver injury, but then completed a three- drug course of medications with rifampin, pyrazinamide, and ethambutol. She has diabetes type 2 and diastolic dysfunction. The patient was hospitalized at [facility] from 10/15/2018 until 11/03/2018 for post-inflammatory pulmonary fibrosis with bronchiectasis with acute exacerbation and COPD with acute exacerbation complicated by anasarca as result of probable underlying right heart failure. She did improve, but gained a lot of weight from the anasarca. She was left extremely deconditioned, where she could hardly even turn herself in bed. She, from a pulmonary standpoint improved, but due to the weakness, she was transferred to [facility] for continued management, physical therapy, OT, in an effort to try to improve her general strength, deconditioning, and functional capabilities. She had been independent of her ADLs prior to this hospitalization. The patient on initial evaluation had anasarca, particularly that extended from the waist distally with 4+ pitting edema. Her lungs were clear. She was left on her routine medicines. She was on furosemide 40 mg, Zaroxolyn 2.5 mg was added daily to try to help with the anasarca from the chronic right heart failure. While on this regimen, she dropped from an admission weight of 198 to a low of 158 and then gradually regained to 165. The edema from the waist, buttock, and upper legs resolved. She retained some 1+ edema in the lower legs and the legs were dependent, after she was placed in knee-high support hose which helped while she was up. The Zaroxolyn was stopped. Her renal functions seemed to tolerate the Zaroxolyn well. She had some drop in blood pressure, results of the diuresis, but upon stopping of the Zaroxolyn and reducing the furosemide to 40 mg just once a day, her blood pressure normalized. She showed marked improvement, her lungs remained clear. Her diabetes was under good control with a hemoglobin A1c of 7.3 on 10/17/2018. Her diabetes was managed with metformin 500 mg b.i.d., and at home, she has a short-acting insulin she uses on a sliding scale. She made excellent progress during her hospitalization with physical therapy, and by the time of her discharge, she was walking 150 to 200 feet multiple times a day with a rolling walker and just supervision. She was transferring independently with just supervision. She had some little superficial ulcerations when she was first admitted. This was managed with local care and gradually healed. Initially it appeared, she had a bad vulvovaginitis from the antibiotics and steroids and her diabetes. She was treated with Diflucan and clotrimazole with gradual resolution. Due to the macerations of the vulva area from her urinary incontinence from the diuresis, a Gross catheter was inserted. Once her wounds were healed, the catheter was removed. After catheter was removed, she was continent of urine. Prior to her discharge, her daughter noticed a little odor to the urine. A urine culture was done on 12/02 and showed 50 to 75 colony count of E coli. No treatment was given since it was an insignificant growth, just encouraged liquids. By 12/03/2018, the patient was doing very well , she was transferring independently. She was ambulating with the use of a walker. She was continent of urine. Her lungs were clear. Her anasarca had resolved. Her right heart failure had resolved, her diabetes showed good control, and her ulcerations on her buttock were healed. Home Health will mushroom picker on her care and arrange for in-home physical therapy. She had been living alone at her home by herself, but her plans were to move to stay with her daughter and then gradually transition back to her home. She will follow up with her primary care physician , Dr. Foster in [facility]. DIET: No added salt diet with reduction in carbohydrates. ACTIVITIES: Ambulate with the use of a walker. Check glucometers daily, weight daily. Wear her O2 by nasal cannula at 2 L, continuous. Knee-high support hose to be worn when out of bed. The should be a low-pressure. MEDICATIONS: 1. MiraLAX 17 g, 8 ounces of water daily p.r.n. 2. Furosemide 40 mg daily, take a second 40 mg tablet in the morning if her weight is up 3 pounds more than usual. 3. Metformin 500 mg b.i.d. 4. Singulair 10 mg daily. 5. Cymbalta 20 mg at bedtime. 6. Atorvastatin 20 mg daily. FOLLOWUP: Home health to see the patient and arrange in-home PT and OT. Follow up with her primary care physician, Dr. Foster in 1 to 2 weeks. Prior to the visit, she will need a CBC, basic metabolic panel. CODE STATUS: Full code. Job ID: [id number] [facility]
== END 2018-12-03 13:00 | disposition home health service (06) | DRG 197 ==
LOC: UNDOADMIN 15:00 → MADMS 15:00
PROVIDERS: ADMIT Family Medicine; ATTEND Family Medicine
DX: J84.10 Pulmonary fibrosis, unspecified (principal); I50.32 Chronic diastolic (congestive) heart failure; B37.89 Other sites of candidiasis; B37.0 Candidal stomatitis; J44.9 Chronic obstructive pulmonary disease, unspecified; I11.0 Hypertensive heart disease with heart failure; E11.42 Type 2 diabetes mellitus with diabetic polyneuropathy; E78.5 Hyperlipidemia, unspecified; I87.2 Venous insufficiency (chronic) (peripheral); D69.6 Thrombocytopenia, unspecified; D64.9 Anemia, unspecified; R32 Unspecified urinary incontinence; B37.3 Candidiasis of vulva and vagina; L98.499 Non-pressure chronic ulcer of skin of other sites with unspecified severity; R53.1 Weakness; E86.9 Volume depletion, unspecified; Z90.49 Acquired absence of other specified parts of digestive tract; Z90.710 Acquired absence of both cervix and uterus; Z88.8 Allergy status to other drugs, medicaments and biological substances; Z87.891 Personal history of nicotine dependence
CPT/HCPCS: 36415; 36416; 80048; 80053; 82728; 83540; 83550; 85025; 87077; 87086; 87186; J1650; J7512; J7620; Q0162

== ENCOUNTER 2019-08-18 15:21 | Inpatient (IN) | payer MEDICARE, MEDICAID ==
[2019-08-18] MEDS ORDERED: Non-Formulary Item 1 EACH (Budesonide-Formoterol [Symbicort 160-4.5] 2 PUFF) INH PRN (18:36)
[2019-08-18] MEDS ORDERED: HumaLOG 300 UNITS/3 ML VIAL SC PRN ×2 (18:36→19:14)
[2019-08-18] MEDS ORDERED: Dextrose 5% in Water 1,000 ML IV PRN (19:14)
[2019-08-18] MEDS ORDERED: Dextrose 50% Abboject 50 ML SYRINGE IVP PRN (19:14)
[2019-08-18] MEDS ORDERED: Furosemide 80 MG TAB PO SCH (19:30)
[2019-08-18] MEDS ORDERED: Mometasone/Formoterol 200/5 60 PUFF INH PRN (19:39)
--- NOTE | 2019-08-18 20:14 | RAD ---
EXAM: CHEST ONE VIEW PORTABLE: 08/18/19 HISTORY: Follow-up pneumonia. COMPARISON: 08/13/19. FINDINGS: There is very severe rotation to the right. Stable prominent nodular perihilar changes probably promi nent proximal pulmonary arteries. Fairly extensive linear and interstitial and fibronodular parenchym al changes in the perihilar regions. Evidence for right costophrenic angle blunting. IMPRESSION: Severe rotation to the right. Persistent extensive parenchymal opacity changes and right costophrenic angle blunting and prominent nodularity in the perihilar regions. No significant new confluent pneum onia. Continued short term follow-up for clearing or stability. POS: RRE
[2019-08-18] MEDS ORDERED: INSULIN GLARGINE SQ SCH (21:00)
[2019-08-18] MEDS: Clindamycin 150 MG CAP PO SCH (21:22)
[2019-08-18] MEDS: Acetaminophen 325 MG TAB PO PRN (21:32)
[2019-08-19 01:33] LABS: Bilirubin Negative (Negative); Blood, Urine Trace (Negative); Clarity Clear (Clear); Glucose, Urine (Dipstick) Negative (Negative); Leukocyte Trace (Negative); Nitrite Negative (Negative); Protein, Urine (Dipstick) 30 mg/dL (Neg-Trace)
[2019-08-19 01:40] LABS: RBC/HPF 0-3 HPF (0-3); Squamous Epithelial 0-3 HPF (0-3); WBC/HPF 21-50 HPF (0-3)
[2019-08-19 01:41] LABS: Bacteria/HPF 1+ HPF (None Seen); Yeast-Budding 1+ HPF (None Seen)
[2019-08-19] MEDS: Clindamycin 150 MG CAP PO SCH ×3 (03:07→20:34)
--- NOTE | 2019-08-19 05:50 | HP ---
CHIEF COMPLAINT: Weakness and generalized swelling. 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 The isoniazid had to be stopped due to drug-induced liver injury that has eventually created cirrhosis and ascites. She has a history of diabetes type 2, diastolic dysfunction, bronchiectasis, and chronic right heart failure with anasarca. She lives in [place], [place] with her brother and is independent of her ADLs with exception needs someone for standby assistance with bathing or showering. The patient was admitted to [facility] from 08/12 until 08/18/2019, for acute encephalopathy secondary to a sepsis with hypotension and renal failure, this probably all secondary to pneumonia. The patient had been hospitalized and discharged a week prior to this hospitalization in [facility] for cellulitis in her feet and apparently had resolved this and was completing her oral antibiotics at home. During the hospitalization at [facility] from 08/12 to 08/17, she required emergent dialysis due to a potassium of 7.6, BUN of 109, creatinine of 4.5, and metabolic acidosis. The patient gradually improved. She was treated with IV antibiotics, receiving cefepime and vancomycin. Her blood cultures had no growth x2. Urine culture, no growth x2. Her creatinine gradually dropped to 1.67, BUN to 53, and potassium to 4.9. She gradually improved and her mental status returned to her baseline. She underwent an echocardiogram on 08/16 that showed an ejection fraction of 55% to 60%. She had severely enlarged right ventricle with end-diastolic pressure markedly elevated, severely elevated pulmonary artery pressure, and severe tricuspid regurgitation, all compatible with her chronic right heart failure and history of anasarca. She underwent abdominal ultrasound, which showed prominent ascites, cirrhotic liver, and enlarged spleen suggestive of portal hypertension. Her feet had blue discoloration and were cool. She underwent vascular ultrasound, arterial studies and showed no focal abnormal high velocity or abnormal waveform either in the right or in the left leg. She had evidence of circulation down to the tibial arteries. She was seen in consultation by Dr. Venkat Whitaker, cardiovascular surgeon. It said that the Doppler signals showed normal arterial ultrasound down to the tibial arteries and on exam, it was apparent that the patient has very severe small-vessel disease distally. There was nothing he could offer at that time. He did say that if she develops increased skin breakdown or infection or gangrenous changes in the toes, then she would need BK amputations of the legs. He did not feel that she would have enough circulation to support an amputation any more distal. Her last lab work done on 08/18/2019, showed a hemoglobin of 11.6, white blood cell count of 8600, platelet count of 91,000. Sodium of 136, potassium of 4.9, BUN of 53, creatinine 1.67, glucose 117. INR on 08/12 was 2.5. The patient was transferred to [facility] on the late afternoon of 08/18/2019 for continued treatment of her anasarca and also for PT and OT. The patient was eating her supper when I went in to see her and was having no trouble with this. She really could not tell me what had happened to her while in the hospital at [facility] and really does not remember even going there. Right now, she says she is feeling pretty good, but just is weak and has low back pain with any movement. PAST MEDICAL HISTORY: Hospitalized at [facility] from 08/12 until 08/18/2019 for acute encephalopathy with sepsis from pneumonia and acute renal failure and anasarca from right heart failure. See present illness for more details. 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 Hospitalized at [facility] from 11/03 to 12/03/2018 for generalized weakness, deconditioning, and anasarca from chronic right heart failure with diuresed weight from 198 to 158. Hospitalized at [facility] from 10/15 to 11/03/2018, for postinflammatory pulmonary fibrosis with bronchiectasis with acute exacerbation and anasarca. The patient has history of active pulmonary tuberculosis that was diagnosed in September of 2017. She was treated with four drug regimen, rifampin, pyrazinamide, ethambutol, and isoniazid. The isoniazid had to be stopped due to drug-induced liver injury and hepatitis. She completed the three drug therapy with no evidence of recurrence. She has been left with pulmonary fibrosis. She also has COPD. As a consequence, she has cor pulmonale with chronic right heart failure and anasarca. She has since developed cirrhosis and ascites from the isoniazid hepatitis. She has diabetes type 2 that has been controlled with Lantus and metformin. She has chronic diastolic dysfunction, peripheral neuropathy of the lower extremities, hyperlipidemia, thrombocytopenia, chronic anemia. The patient has had cholecystectomy and EVELIN. PRESENT MEDICINES: 1. Insulin glargine 57 units subcu at bedtime. 2. Omeprazole 40 mg daily. 3. Singulair 10 mg daily. 4. Neurontin 100 mg at bedtime. 5. Duloxetine 20 mg at bedtime. 6. Symbicort two puffs b.i.d., that is 160/4.5. 7. MiraLAX 17 g 8 ounces water daily. 8. Humalog moderate sliding scale. 9. Furosemide 40 mg, at home, the patient had been on 80 mg daily. 10. Atorvastatin 20 mg daily. 11. Acetaminophen 325 mg two every 4 hours as needed. ALLERGIES: ISONIAZID CAUSES SEVERE HEPATITIS, AND LYRICA SOMNOLENCE AND INCREASES HER EDEMA. REVIEW OF SYSTEMS: GENERAL: The patient said she is feeling overall better, but still weak. HEAD AND NECK: No complaints. PULMONARY: The patient said she is breathing good right now. CARDIOVASCULAR: No chest pain. GI: The patient said her stomach is always big. She said her bowels have started moving today. : No complaint. No history of incontinence. ADLS: The patient ordinarily is independent of her ADLs, but needs at least standby assistance for bathing and showering. HABITS: Alcohol, none. Tobacco, the patient has smoked for a few years, but stopped years ago. SOCIAL HISTORY: The patient lives with her brother in [place] and has a daughter who helps her with all her instrumental ADLs and drives her wherever needed. CODE STATUS: Full code. PHYSICAL EXAMINATION: GENERAL: Shows a 69-year-old white female, who appears much older. She is sitting up in bed and eating. She looks comfortable, but any movement creates pain in her low back. VITAL SIGNS: Show a temperature of 97.2, pulse 118, respirations 24, O2 saturation 100% on 3 L, and blood pressure 127/91. Her weight is 176. HEENT: Head, normocephalic and atraumatic. Eyes, pupils are equal, round, and reactive. Ears, TMs are clear. Nose, normal. Mouth and throat, the patient is edentulous. Mucous membranes are moist. NECK: Carotids are equal and strong. No bruits. Thyroid, not enlarged. LUNGS: Clear. HEART: Rapid regular rhythm, rate was 118. ABDOMEN: Very protuberant with shifting areas of dullness and evidence of ascites. EXTREMITIES: The lower extremities have 3+ edema all the way to 4+ edema extending all the way up to the groin. She has some bruising in her thighs from where she had dialysis catheters. She has superficial ulceration over the right anterior leg , it is about 3 cm in diameter. She also has some blistering over that right leg. Her right forefoot is pink and warm to the touch. All her toes are ischemic appearing. Her left foot is cold. All the toes have bluish discoloration and some tiny superficial ulcerations. Could not feel pulses in the feet. NEUROLOGIC: The patient is alert, knows she is in the hospital. She has severe generalized weakness. IMPRESSION: 1. Severe generalized weakness. a. Unable to ambulate and requiring assistance with all her ADLs. b. Following hospitalization at [facility] from 08/12 to 08/17. 2. Hospitalized at [facility] from 08/12 to 08/18/2019 for acute encephalopathy, pneumonia with sepsis and hypotension, acute renal failure with metabolic acidosis and hyperkalemia requiring emergent dialysis, anasarca. 3. Chronic right heart failure and ischemic changes to her feet due to small- vessel disease in the feet. 4. Postinflammatory pulmonary fibrosis. a. Secondary to pulmonary tuberculosis. b. Complicated by chronic hypoxic respiratory failure requiring continuous supplemental O2. 5. Chronic obstructive pulmonary disease. 6. History of active tuberculosis in September of 2017. a. Treated with four drug therapy with rifampin, pyrazinamide, and ethambutol. The 4th drug isoniazid had to be stopped due to drug-induced hepatitis. b. No evidence of recurrence. 7. Cor pulmonale secondary to her pulmonary fibrosis from pulmonary tuberculosis and chronic obstructive pulmonary disease. a. Complicated by chronic right heart failure. b. Echocardiogram on 08/17/2019, showed an ejection fraction of 55% to 60%, severely enlarged right ventricle, severely elevated pulmonary artery pressure, and severe tricuspid regurgitation. 8. Diabetes mellitus type 2, insulin requiring. 9. Chronic diastolic dysfunction. 10. Cirrhosis of the liver with chronic ascites. a. Secondary to drug-induced hepatitis. b. Complicated by chronic ascites. c. Complicated by thrombocytopenia and anemia. 11. Hypertension. 12. Peripheral neuropathy. 13. Superficial ulceration and blistering of the left lower leg secondary to the anasarca. 14. Cellulitis of the right forefoot. 15. Ischemic changes in the feet secondary to small-vessel arterial disease of the feet. PLAN: The patient has been admitted to [facility] for purpose of her weakness. We will have PT and OT look at her and try to advance her activities. We will continue her routine medication. We will weigh her daily. We will start her on diuretics, use the furosemide and add Zaroxolyn, which worked very well for her before. We will place her on antibiotics for cellulitis of the right foot, using clindamycin. We will dress the superficial ulceration with Silvadene cream, apply Adaptic and also apply Adaptic to the blisters, wrap the leg with a Kerlix and Rock wrap with minimal pressure, this will be done daily. We will have to carefully observe the feet for progressive ischemic changes that could eventually result in BK amputations. See orders. [facility] ID: [id number] [facility]
[2019-08-19 05:54] LABS: INR-International Normal Ratio 1.2
[2019-08-19 06:03] LABS: #Basophils 0.1 thou/uL (0.0-0.2); #Eosinphils 0.2 thou/uL (0.0-0.7); #Monocytes 1.4 thou/uL (0.11-0.59); #Neutrophils 9.5 thou/uL (1.40-6.50); %Basophils 0.5 % (0.0-1.0); %Eosinophils 1.3 % (0.0-10.0); %Monocytes 11.2 % (0.0-10.0); Anisocytosis MODERATE=16-30 cells (100X) (0-5/hpf); Band 6 % (5-11); Elliptocytes SLIGHT = 2-5 cells (100X) (0-1/hpf); Eosinophils 1 % (0-10); Hypochromia MODERATE=16-30 cells (100X) (0-5/hpf); Lymphocytes 10 % (21-51); MDiff Complete? YES; Mean Corpuscular HGB CONC 27.9 g/dL (32.0-36.0); Mean Corpuscular Hemoglobin 24.9 pg (27.0-31.0); Mean Corpuscular Volume 89.6 fL (78.0-98.0); Mean Platelet Volume 7.9 fL (7.4-10.4); Monocytes 5 % (0-10); Neutrophil 78 % (42-75); Ovalocytes SLIGHT = 2-5 cells (100X) (0-1/hpf); Platelet Count 119 thou/uL (130-400); RBC Distribution Width 18.7 % (11.5-14.5); Red Blood Cell (RBC) Count 4.39 mill/uL (4.20-5.40); White Blood Cell (WBC) Count 12.1 thou/uL (4.8-10.8)
[2019-08-19 06:04] LABS: ALT (SGPT) 29 U/L (8-55); AST (SGOT) 25 U/L (5-34); Albumin 3.8 g/dL (3.4-4.8); Alkaline Phosphatase 107 U/L (40-110); Anion Gap 17 mmol/L (10-20); BUN (Urea Nitrogen) 55 mg/dL (9.8-20.1); Bilirubin, Total 1.5 mg/dL (0.2-1.2); Calc. Creatinine Clearance 46 mL/min (70-130); Calcium 9.3 mg/dL (7.8-10.44); Carbon Dioxide 24 mmol/L (23-31); Chloride 103 mmol/L (98-107); Estimated GFR-MDRD 37; Globulin 3.3 g/dL (2.4-3.5); Glucose 62 mg/dL (83-110); Potassium 4.7 mmol/L (3.5-5.1); Protein, Total 7.1 g/dL (6.0-8.3); Sodium 139 mmol/L (136-145)
[2019-08-19] MEDS: Atorvastatin Calcium 10 MG TAB PO SCH (08:17)
[2019-08-19] MEDS: Polyethylene Glycol 3350 17 GM Packet PO SCH (08:17)
[2019-08-19] MEDS: Furosemide 80 MG TAB PO SCH (08:17)
[2019-08-19] MEDS ORDERED: Non-Formulary Item 1 EACH (Omeprazole [Omeprazole] 40 MG) PO SCH (09:00)
[2019-08-19] MEDS: Silver Sulfadiazine 50 GM TUBE TOP PRN (10:41)
[2019-08-19] MEDS: Acetaminophen 325 MG TAB PO PRN ×2 (11:02→20:34)
--- NOTE | 2019-08-19 11:41 | PRG ---
DATE OF SERVICE: 08/19/2019 SUBJECTIVE: The patient says she feels much better this morning. She is up in a bedside chair. Last night, a Gross catheter was placed. This had been removed around noon time on 08/18/2019 before her transfer here and she never did void. With the increase in the diuresis and not voiding, the catheter was replaced. Says overall she feels better. The moist heat on the back has helped her pain. OBJECTIVE: GENERAL: The patient is sitting up in a bedside chair. She looks very comfortable and very interactive and talkative and looks much better. VITAL SIGNS: Temperature 97.3, pulse 113, respirations 20, O2 saturation 100% on 3 L, blood pressure 109/69. Weight 175. Urinary output was 750. LUNGS: Clear. HEART: Regular rate. EXTREMITIES: The bruising over the upper legs looks better. The edema in the legs looks much improved. The feet look much better. The redness and increased heat in the right forefoot have resolved. The toes of the left foot that were all blue and cold are now warm and pink. LABORATORY DATA: Shows an H and H of 11 and 39.3, white cell count 12,100, with 78% segs, 6% bands, lymphocytes 10%, and platelet count 119,000. INR 1.2. Sodium 139, potassium 4.7, BUN 55, creatinine 1.4, GFR 37, and glucose 62. Hemoglobin A1c pending. Total bilirubin 1.5. AST and ALT normal. Urine has 21 to 50 wbc's and there is budding yeast. Chest x-ray shows severe rotation to the right. There are persistent extensive parenchymal opacity changes and right costophrenic blunting and prominent nodularity in the perihilar regions. No significant confluent pneumonia. I have reviewed the x-ray, the left lung looks better, but she is so rotated, very difficult to read. There is a nodularity seen on the right perihilar area. ASSESSMENT: 1. Severe generalized weakness. a. On admission, unable to ambulate, requiring assistance with all her ADLs. b. Following hospitalization at [facility] from 08/12/2019 to 08/17. 2. Hospitalized at [facility] from 08/12/2019 to 08/18/2019 for acute encephalopathy, pneumonia with sepsis, hypotension, and acute renal failure with metabolic acidosis and hyperkalemia, requiring emergent dialysis, and anasarca. 3. Chronic right heart failure. 4. Postinflammatory pulmonary fibrosis. a. Secondary to pulmonary tuberculosis. b. Complicated by chronic hypoxic respiratory failure, requiring continuous supplemental O2. 5. Chronic obstructive pulmonary disease. 6. History of active pulmonary tuberculosis, September 2017. a. Treated with 4-drug therapy with rifampin, pyrazinamide, and ethambutol. The fourth drug isoniazid had to be stopped due to drug-induced hepatitis. b. No evidence of recurrence. 7. Cor pulmonale secondary to pulmonary fibrosis from the pulmonary tuberculosis and chronic obstructive pulmonary disease. a. Complicated by chronic right heart failure. b. Echocardiogram on 08/17/2019, showed ejection fraction 55% to 60%, severely enlarged right ventricle, severely elevated pulmonary artery pressure, and severe tricuspid regurgitation. c. Improved as of 08/19/2019. 8. Diabetes type 2, insulin requiring. a. Controlled with Lantus and sliding scale. Morning sugars are low, may be a little too tightly controlled as of 08/18. 9. Chronic diastolic dysfunction. 10. Cirrhosis of the liver with chronic ascites. a. Secondary to drug-induced hepatitis from isoniazid. b. Complicated by chronic ascites. c. Complicated by thrombocytopenia and anemia. 11. Hypertension. 12. Peripheral neuropathy. 13. Superficial ulceration and blister in the left leg secondary to the anasarca. 14. Cellulitis of the right forefoot. a. Improved as of 08/19/2019. 15. Ischemic changes in the right foot secondary to small-vessel arterial disease of the feet. a. The feet look better as of 08/18. The blueness has resolved. PLAN: We will continue present care. Continue the diuresis to try to help with the anasarca, which is a little better today. PT/OT will be evaluating her. We will reduce her Lantus to 50 units and reduce her sliding scale to a mild. Job ID: [id number] [facility]
[2019-08-19] MEDS: traMADol HCl 50 MG TAB PO PRN (15:11)
[2019-08-19 15:36] LABS: Hemoglobin A1c 6.7 % (4.0-6.0)
[2019-08-19] MEDS: Zolpidem Tartrate 5 MG TAB PO PRN (20:34)
[2019-08-20] MEDS: Clindamycin 150 MG CAP PO SCH ×3 (03:15→21:19)
[2019-08-20 05:56] LABS: Calcium 9.1 mg/dL (7.8-10.44); Potassium 4.8 mmol/L (3.5-5.1)
[2019-08-20] MEDS: Polyethylene Glycol 3350 17 GM Packet PO SCH (08:51)
[2019-08-20] MEDS: Atorvastatin Calcium 10 MG TAB PO SCH (08:53)
[2019-08-20] MEDS: Furosemide 80 MG TAB PO SCH (08:53)
[2019-08-20] MEDS: traMADol HCl 50 MG TAB PO PRN ×2 (08:56→21:37)
--- NOTE | 2019-08-20 13:01 | PRG ---
DATE OF SERVICE: 08/20/2019 SUBJECTIVE: The patient says she is feeling a lot better. She was started on tramadol for her chronic low back pain and uses this p.r.n. along with a Gaymar pump and this has helped. The patient had another episode of hypoglycemia early this morning that responded quickly to just oral feeding. Her blood sugar dropped to 50 and with this she was symptomatic. Immediately after eating breakfast, it went up to 70. Her Lantus was decreased further to 40 units. She is on a mild sliding scale with Humalog only before meals. No bedtime Humalog and she is getting a bedtime snack. Her daughter has brought in Ambien 5 mg that she uses at home for sleep. This morning, the patient says she feels much much better, is not hurting and is not short of breath. OBJECTIVE: GENERAL: The patient is sitting up in a bedside chair. She looks comfortable, in no distress. VITAL SIGNS: Her temperature is 97.7, pulse 119, her respirations are 22, O2 saturation 99% on 3 L, blood pressure 129/84. Her urinary output over the last 24 hours has been 1050. Her weight went up to 177. LUNGS: There are some decreased breath sounds at the left base. HEART: Regular rate. EXTREMITIES: There is still edema, but less so. With her sitting, the toes have a bluish hue. LABORATORY DATA: Her lab this morning showed a sodium of 137, potassium of 4.8 , BUN 52, creatinine 1.35, glucose was 50. After oral glucose, this had come up to 77 and symptoms had resolved. ASSESSMENT: 1. Severe generalized weakness. a. On admission, unable to ambulate, required assistance with all her ADLs. b. Following hospitalization at [facility] from 08/12 to 2019. c. Improved. Sitting up in a chair and ambulates with a walker in the room. 2. Hospitalized at [facility] from 08/12 to 08/18/2019 for acute encephalopathy, pneumonia with sepsis, hypotension, and acute renal failure with metabolic acidosis and hyperkalemia, requiring emergent dialysis and anasarca. 3. Chronic right heart failure. 4. Postinflammatory pulmonary fibrosis. a. Secondary to pulmonary tuberculosis. b. Complicated by chronic hypoxic respiratory failure, requiring continuous supplemental O2. 5. Chronic obstructive pulmonary disease. 6. History of active pulmonary tuberculosis in September 2017. a. Treated with 4-drug therapy with rifampin, pyrazinamide, and ethambutol. Completed the three drug course. The 4th drug isoniazid had to be stopped due to drug-induced hepatitis. b. Evidence of recurrence. 7. Cor pulmonale secondary to pulmonary fibrosis from pulmonary tuberculosis and chronic obstructive pulmonary disease. a. Complicated by chronic right heart failure. b. Echocardiogram on 08/17/2019 showed ejection fraction of 55% to 60%, severely enlarged right ventricle, severely elevated pulmonary artery pressure, and severe tricuspid regurgitation. c. Stable as of 08/19, but still has evidence of the anasarca and weight increasing as of 08/19. 8. Diabetes type 2, insulin requiring. a. Complicated by an another episode of hypoglycemia early on the morning of 08/19. b. Lantus decreased. The patient should be on bedtime snack as of 08/19. 9. Chronic diastolic dysfunction. 10. Cirrhosis of the liver with chronic ascites. a. Secondary to drug-induced hepatitis from isoniazid. b. Complicated by chronic ascites. c. Complicated by thrombocytopenia and anemia. 11. Hypertension. 12. Peripheral neuropathy. 13. Superficial ulceration blisters, left leg secondary to the anasarca improving. 14. Cellulitis of the right forefoot. a. Improved as of 08/19. 15. Ischemic changes in the toes secondary to small-vessel arterial disease of the feet. a. Stable as of 08/19. PLAN: Continue PT, OT. Continue present medicines. I have reduced the patient 's Lantus from 50 to 40 units. She is receiving Humalog before meals on a sliding scale and she is getting the bedtime snack. Continue to monitor the glucose. We will add Zaroxolyn to her furosemide in an effort to try to help further mobilize the anasarca. Job ID: [id number] [facility]ISION[facility]
[2019-08-20] MEDS: Zolpidem Tartrate 5 MG TAB PO PRN (21:37)
[2019-08-20] MEDS ORDERED: Fluconazole 100 MG TAB PO SCH (22:15)
[2019-08-20] MEDS ORDERED: Clotrimazole 1% Cream 15 GM TUBE TOP SCH (22:15)
[2019-08-21] MEDS: Clindamycin 150 MG CAP PO SCH ×3 (04:42→19:41)
[2019-08-21 06:36] LABS: Calcium 9.3 mg/dL (7.8-10.44); Potassium 5.2 mmol/L (3.5-5.1)
[2019-08-21] MEDS: Metolazone 5 MG TAB PO SCH (08:32)
[2019-08-21] MEDS: Clotrimazole 1% Cream 15 GM TUBE TOP SCH ×2 (08:32→20:49)
[2019-08-21] MEDS: Polyethylene Glycol 3350 17 GM Packet PO SCH (08:32)
[2019-08-21] MEDS: Atorvastatin Calcium 10 MG TAB PO SCH (08:32)
[2019-08-21] MEDS: Furosemide 80 MG TAB PO SCH (08:32)
--- NOTE | 2019-08-21 18:01 | PRG ---
DATE OF SERVICE: 08/21/2019 SUBJECTIVE: Last night, the patient was complaining of irritation and burning in the vaginal area, and asked that the catheter be removed. The nurse has inspected the area and said it was very red. She was started on medicine for Robyn vulvovaginitis with clotrimazole cream twice today and Diflucan 100 mg orally. The patient has not had any trouble voiding, and this morning, she says that the irritation is much better. The nurses reported that her blood sugar this morning was down to 34. She was given some glucose, but ended up having to receive glucagon 1 mg IM. Her blood sugar came up to 70 and then on up to 136. Her Lantus had been dropped yesterday to 40, but in spite of this and the bedtime snack, she still had another morning episode. We will cut back on her Lantus to 20 units. She had not received any Humalog at supper-time last evening. OBJECTIVE: GENERAL: The patient is in bed, alert, appears comfortable, in no distress. VITAL SIGNS: Her temperature is 96.4, pulse 113, respirations 16, O2 saturation 95% on 3 L, blood pressure 108/66. Her weight is 179. Her urinary output was 1800. LUNGS: Clear. HEART: Regular rate. EXTREMITIES: The edema in the legs is better, but not resolved. The feet with her lying down look much better. They do not have the bluish hue. They are warmer. The dorsum of the right forefoot is a little red, but not hot like it was. LABORATORY DATA: Show a sodium of 137, potassium of 5.2, BUN 56, creatinine 1.36 and stable, and glucose this morning was 34. ASSESSMENT: 1. Severe generalized weakness: a. On admission, unable to ambulate, required assistance with her ADLs. b. Following hospitalization at [facility] from 08/12/2019 to 08/17. c. Improved, tolerates sitting up in a chair and ambulating short distances as of 08/20. 2. Hospitalized at [facility] from 08/12/2019 to 08/18/2019, for acute encephalopathy, pneumonia with sepsis, hypotension, and acute renal failure with metabolic acidosis and hyperkalemia requiring emergent dialysis and anasarca. 3. Chronic right heart failure. 4. Postinflammatory pulmonary fibrosis: a. Secondary to pulmonary tuberculosis. b. Complicated by chronic hypoxic respiratory failure requiring continuous supplemental O2. 5. Chronic obstructive pulmonary disease. 6. History of active tuberculosis in September 2017: a. Treated with 4-drug therapy with rifampin, pyrazinamide, ethambutol, and isoniazid. Completed 3-drug course. The 4th drug isoniazid had to be stopped due to drug-induced hepatitis. b. No evidence of recurrence. 7. Cor pulmonale secondary to pulmonary fibrosis from pulmonary tuberculosis and chronic obstructive pulmonary disease: a. Complicated by chronic right heart failure. b. Echocardiogram on 08/17/2019, showed ejection fraction of 55% to 60%, severely enlarged right ventricle, severely elevated pulmonary artery pressure, and severe tricuspid regurgitation. c. Stable on 08/20, but still evidence of generalized edema as of 08/20. 8. Diabetes type 2, insulin requiring: a. Complicated by episode of hypoglycemia early on the morning of 08/19, for which her Lantus has been decreased from 57 to 40 units as of 08/19. b. Complicated by another episode of hypoglycemia on the morning of 08/20 that required glucagon and oral glucose on 08/20, Lantus decreased to 20 units. 9. Chronic diastolic dysfunction. 10. Cirrhosis of the liver with chronic ascites: a. Secondary to drug-induced hepatitis from isoniazid. b. Complicated by chronic ascites. c. Complicated by thrombocytopenia and anemia. 11. Hypertension. 12. Peripheral neuropathy. 13. Superficial ulceration, blisters in the left leg secondary to the anasarca, improving. 14. Cellulitis of the right forefoot: a. Improved as of 08/20. 15. Ischemic changes of the toe secondary to small-vessel arterial disease of the feet: a. Stable as of 08/19. PLAN: Gross catheter has been removed and she seemed to be tolerating this fine. She has developed vulvovaginitis and is being treated with Diflucan and clotrimazole cream locally. We will reduce the Lantus from 40 units to 20 units. The Humalog is only given according to mild sliding scale. She is getting a bedtime snack. Continue PT and OT. [facility] ID: [id number] [facility]
[2019-08-21] MEDS: traMADol HCl 50 MG TAB PO PRN (20:48)
[2019-08-21] MEDS: Zolpidem Tartrate 5 MG TAB PO PRN (20:48)
[2019-08-21] MEDS: Fluconazole 100 MG TAB PO SCH (20:50)
[2019-08-22] MEDS: Clindamycin 150 MG CAP PO SCH ×3 (03:57→19:33)
[2019-08-22] MEDS: Atorvastatin Calcium 10 MG TAB PO SCH (08:32)
[2019-08-22] MEDS: Furosemide 80 MG TAB PO SCH (08:32)
[2019-08-22] MEDS: Metolazone 5 MG TAB PO SCH (08:32)
[2019-08-22] MEDS: Polyethylene Glycol 3350 17 GM Packet PO SCH (08:33)
[2019-08-22] MEDS: Clotrimazole 1% Cream 15 GM TUBE TOP SCH ×2 (08:33→20:15)
[2019-08-22] MEDS: traMADol HCl 50 MG TAB PO PRN (14:16)
[2019-08-22] MEDS: Zolpidem Tartrate 5 MG TAB PO PRN (20:15)
[2019-08-22] MEDS: Fluconazole 100 MG TAB PO SCH (20:16)
[2019-08-23] MEDS: traMADol HCl 50 MG TAB PO PRN ×3 (01:28→20:58)
[2019-08-23] MEDS: Clindamycin 150 MG CAP PO SCH ×3 (04:33→19:17)
[2019-08-23 05:56] LABS: Anion Gap 14 mmol/L (10-20); BUN (Urea Nitrogen) 59 mg/dL (9.8-20.1); Calc. Creatinine Clearance 44 mL/min (70-130); Calcium 9.1 mg/dL (7.8-10.44); Carbon Dioxide 27 mmol/L (23-31); Chloride 100 mmol/L (98-107); Estimated GFR-MDRD 34; Glucose 120 mg/dL (83-110); Potassium 5.3 mmol/L (3.5-5.1); Sodium 136 mmol/L (136-145)
[2019-08-23 07:29] LABS: Hemoglobin 10.3 g/dL (12.0-16.0); Mean Corpuscular HGB CONC 28.8 g/dL (32.0-36.0); Mean Corpuscular Hemoglobin 25.4 pg (27.0-31.0); Mean Corpuscular Volume 88.1 fL (78.0-98.0); RBC Distribution Width 18.2 % (11.5-14.5); Red Blood Cell (RBC) Count 4.05 mill/uL (4.20-5.40)
[2019-08-23 07:30] LABS: Anisocytosis SLIGHT = 6-15 cells (100X) (0-5/hpf); Eosinophils 2 % (0-10); Lymphocytes 12 % (21-51); MDiff Complete? YES; Manual Diff?? YES; Monocytes 10 % (0-10); Neutrophil 76 % (42-75); Platelet Count 205 thou/uL (130-400)
[2019-08-23 07:31] LABS: Platelet Morphology Comment Appears Adequate
[2019-08-23 07:33] LABS: White Blood Cell (WBC) Count 10.5 thou/uL (4.8-10.8)
[2019-08-23] MEDS: Furosemide 80 MG TAB PO SCH (08:48)
[2019-08-23] MEDS: Metolazone 5 MG TAB PO SCH (08:48)
[2019-08-23] MEDS: Polyethylene Glycol 3350 17 GM Packet PO SCH (08:49)
[2019-08-23] MEDS: Clotrimazole 1% Cream 15 GM TUBE TOP SCH ×2 (08:49→20:26)
[2019-08-23] MEDS: Atorvastatin Calcium 10 MG TAB PO SCH (08:49)
--- NOTE | 2019-08-23 14:22 | PRG ---
DATE OF SERVICE: 08/23/2019 SUBJECTIVE: The patient says she is feeling all right today. She had no complaint. Nurses noticed that the right foot is a little more red. She still has swelling on the leg. OBJECTIVE: GENERAL: The patient was sitting in her geriatric chair, this was placed in a reclined position, elevating her feet. She was alert and talkative and in no distress. VITAL SIGNS: Her temperature was 97.9, pulse 110, respirations 22, O2 saturations 99% on 3 L, blood pressure 112/71. Weight stable at 180. LUNGS: Clear. HEART: Regular rate. EXTREMITIES: The patient still has 1 to 2+ edema of the lower legs and feet. She still has a little superficial ulcerations over the left leg and some blistering. The right foot is red, but there is no increased warmth. LABORATORY DATA: Shows hemoglobin and hematocrit of 10.3 and 35.7, white cell count 10,500 with 76% segs, 12% lymphocytes, and a platelet count of 205. Sodium 136, potassium is 5.3, BUN 59, creatinine 1.52, GFR is 34, glucose 120. ASSESSMENT: 1. Severe generalized weakness. a. On admission, unable to ambulate, required assistance with all ADLs. b. Following hospitalization at [facility] from 08/12/2019 through 08/18/2019. c. Improved, tolerating sitting up in a chair and ambulating just within the room for short distances as of 08/22. 2. Hospitalized at [facility] from 08/12/2019 through 08/18/2019 for acute encephalopathy, pneumonia with sepsis, hypotension, acute renal failure with metabolic acidosis, and hyperkalemia requiring emergent dialysis and anasarca. 3. Chronic right heart failure. 4. Postinflammatory pulmonary fibrosis. a. Secondary to pulmonary tuberculosis. b. Complicated by chronic hypoxic respiratory failure requiring continuous supplemental O2. 5. Chronic obstructive pulmonary disease. 6. History of active tuberculosis in September 2017. a. Treated with 4-drug therapy with rifampin, pyrazinamide, ethambutol, and isoniazid. Completed 3-drug course. Fourth drug isoniazid had to be stopped due to drug-induced hepatitis. b. No evidence of recurrence. 7. Cor pulmonale secondary to pulmonary fibrosis from pulmonary tuberculosis and chronic obstructive pulmonary disease. a. Complicated by chronic right heart failure. b. Echocardiogram on 08/17/2019 showed ejection fraction 55% to 60%, severe enlargement of the right ventricle, severe elevation in pulmonary artery pressure, and severe tricuspid regurgitation. c. Stable, but still has edema of the lower extremities as of 08/22, and weight stable at 180. 8. Diabetes type 2 insulin requiring. a. Complicated by episode of hypoglycemia early on the morning of 08/19, for which her Lantus has been decreased from 57 to 40 units as of 08/19. b. Complicated by another episode of hypoglycemia on the morning of 08/20 that required glucagon and oral glucose on 08/21/2019, for which Lantus was decreased to 20 units. 9. Chronic diastolic dysfunction. 10. Cirrhosis of the liver with chronic ascites. a. Secondary to drug-induced hepatitis from isoniazid. b. Complicated by chronic ascites. c. Complicated by thrombocytopenia and anemia. 11. Hypertension. 12. Peripheral neuropathy. 13. Superficial ulceration, blisters in left lower leg secondary to the anasarca. 14. Cellulitis of the right foot. 15. Ischemic changes of the toe secondary to small-vessel arterial disease of the feet. a. Stable as of 08/22. 16. Chronic kidney disease with GFR 34. PLAN: Continue present care. Continue local care to the blisters and ulcerations. These will be cleaned daily. To the open areas, we will have Silvadene cream applied overlying Adaptic and gauze, and then feet wrapped with Kerlix from the base of the toes to just below the knees, and then with mild pressure. Rock wrap will be done to try to help control some of the swelling. Job ID: [id number] [facility]
[2019-08-23] MEDS: Lantus 1000 UNITS/10 ML VIAL SC SCH (20:27)
[2019-08-23] MEDS: Fluconazole 100 MG TAB PO SCH (20:33)
[2019-08-23] MEDS: Zolpidem Tartrate 5 MG TAB PO PRN (20:59)
[2019-08-24] MEDS: Clindamycin 150 MG CAP PO SCH ×3 (04:12→20:09)
[2019-08-24] MEDS: Atorvastatin Calcium 10 MG TAB PO SCH (08:25)
[2019-08-24] MEDS: Furosemide 80 MG TAB PO SCH (08:25)
[2019-08-24] MEDS: Metolazone 5 MG TAB PO SCH (08:25)
[2019-08-24] MEDS: Clotrimazole 1% Cream 15 GM TUBE TOP SCH ×2 (08:26→20:09)
[2019-08-24] MEDS: Polyethylene Glycol 3350 17 GM Packet PO SCH (08:26)
--- NOTE | 2019-08-24 09:40 | PRG ---
DATE OF SERVICE: 08/24/2019 SUBJECTIVE: The patient said she feels little better today. She was able to walk to the bathroom with her walker and assistance. OBJECTIVE: GENERAL: The patient is sitting on the toilet. She is alert, appears comfortable, in no distress. She is wearing her O2. VITAL SIGNS: Her vital signs show temperature 97.3, pulse 111, respirations 18 , O2 saturation 96% on 3 L, and blood pressure 110/76. Her weight is stable at 180. LUNGS: Clear. HEART: Regular rate. EXTREMITIES: Had edema in the legs. It is little better. She has the support hose on, but they are moist from some serous drainage. The toes look better. The patient's FBS yesterday was 111, this morning is pending. ASSESSMENT: 1. Severe generalized weakness. a. On admission, unable to ambulate, required assist with all ADLs. b. Following hospitalization at [facility] from 08/12/2019 to 08/17. c. Improved, tolerating sitting up in a chair and ambulating within her room as of 08/23. 2. Hospitalized at [facility] from 08/12 to 08/17 for acute encephalopathy, pneumonia with sepsis, hypotension, acute renal failure with metabolic acidosis and hyperkalemia, requiring emergent dialysis. 3. Chronic right heart failure. 4. Postinflammatory pulmonary fibrosis. a. Secondary to pulmonary tuberculosis. b. Complicated by chronic hypoxic respiratory failure, requiring continuous supplemental O2. 5. Chronic obstructive pulmonary disease. 6. History of active tuberculosis in September of 2017. a. Treated with four-drug therapy with rifampin, pyrazinamide, ethambutol, and isoniazid.. b. Completed a three-drug course. Fourth drug isoniazid was stopped due to drug-induced hepatitis. c. No evidence recurrence. 7. Cor pulmonale secondary to pulmonary fibrosis, pulmonary tuberculosis, and chronic obstructive pulmonary disease. a. Complicated by chronic right heart failure. b. The echocardiogram on 08/17/2019 showed ejection fraction of 55% to 60%, severe enlargement of the right ventricle, severe elevation of pulmonary artery pressure and severe tricuspid regurgitation. c. Stable, still has edema in the lower legs, but little improved as of . Weight stable at 180. 8. Diabetes type 2, insulin requiring. a. Hypoglycemic episodes that resolve since the Lantus has been reduced to the 20 units a day from the original 57. 9. Chronic diastolic dysfunction. 10. Cirrhosis of the liver with chronic ascites. a. Secondary to drug-induced hepatitis from isoniazid. b. Complicated by chronic ascites. c. Complicated by thrombocytopenia and anemia. 11. Hypertension. 12. Peripheral neuropathy. 13. Superficial ulceration. 14. History of the left lower leg secondary to the anasarca. 15. Cellulitis of right foot, resolving. 16. Ischemic changes of the toe secondary to small vessel arterial disease of the feet. a. Stable as 08/23. 17. Chronic kidney disease. PLAN: Continue present care. Continue the dressings to the leg and the mild compression wraps to the lower legs. Continue to elevate the legs. Job ID: [id number] [facility]
[2019-08-24 10:00] LABS: ALT (SGPT) 19 U/L (8-55); AST (SGOT) 23 U/L (5-34); Albumin 3.6 g/dL (3.4-4.8); Alkaline Phosphatase 121 U/L (40-110); Anion Gap 16 mmol/L (10-20); BUN (Urea Nitrogen) 58 mg/dL (9.8-20.1); Bilirubin, Total 1.1 mg/dL (0.2-1.2); Calc. Creatinine Clearance 41 mL/min (70-130); Calcium 9.2 mg/dL (7.8-10.44); Carbon Dioxide 26 mmol/L (23-31); Chloride 100 mmol/L (98-107); Estimated GFR-MDRD 31; Globulin 3.1 g/dL (2.4-3.5); Glucose 115 mg/dL (83-110); Potassium 5.4 mmol/L (3.5-5.1); Protein, Total 6.7 g/dL (6.0-8.3); Sodium 137 mmol/L (136-145)
[2019-08-24] MEDS: Lantus 1000 UNITS/10 ML VIAL SC SCH (20:08)
[2019-08-24] MEDS: Zolpidem Tartrate 5 MG TAB PO PRN (20:09)
[2019-08-24] MEDS: Fluconazole 100 MG TAB PO SCH (20:26)
[2019-08-24] MEDS: traMADol HCl 50 MG TAB PO PRN (23:49)
[2019-08-25] MEDS: Silver Sulfadiazine 50 GM TUBE TOP PRN ×2 (02:56→12:55)
[2019-08-25] MEDS: Clindamycin 150 MG CAP PO SCH ×3 (02:59→20:19)
[2019-08-25 06:04] LABS: #Basophils 0.1 thou/uL (0.0-0.2); #Eosinphils 0.2 thou/uL (0.0-0.7); #Monocytes 1.2 thou/uL (0.11-0.59); #Neutrophils 9.2 thou/uL (1.40-6.50); %Basophils 1.2 % (0.0-1.0); %Eosinophils 1.4 % (0.0-10.0); %Lymphocytes 8.8 % (21.0-51.0); %Monocytes 10.1 % (0.0-10.0); %Neutrophils 78.5 % (42.0-75.0); Elliptocytes SLIGHT = 2-5 cells (100X) (0-1/hpf); Hemoglobin 10.1 g/dL (12.0-16.0); Hypochromia SLIGHT = 6-15 cells (100X) (0-5/hpf); MDiff Complete? YES; Mean Corpuscular HGB CONC 28.6 g/dL (32.0-36.0); Mean Corpuscular Hemoglobin 25.6 pg (27.0-31.0); Mean Corpuscular Volume 89.4 fL (78.0-98.0); Mean Platelet Volume 7.4 fL (7.4-10.4); Platelet Count 195 thou/uL (130-400); Platelet Morphology Comment Appears Adequate; Red Blood Cell (RBC) Count 3.96 mill/uL (4.20-5.40); White Blood Cell (WBC) Count 11.7 thou/uL (4.8-10.8)
[2019-08-25] MEDS: Polyethylene Glycol 3350 17 GM Packet PO SCH (08:41)
[2019-08-25] MEDS: Metolazone 5 MG TAB PO SCH (08:41)
[2019-08-25] MEDS: Furosemide 80 MG TAB PO SCH (08:42)
[2019-08-25] MEDS: Atorvastatin Calcium 10 MG TAB PO SCH (08:42)
[2019-08-25] MEDS: Clotrimazole 1% Cream 15 GM TUBE TOP SCH ×2 (08:42→20:28)
--- NOTE | 2019-08-25 09:51 | PRG ---
DATE OF SERVICE: 08/25/2019 SUBJECTIVE: The patient is up this morning with physical therapy. She is sitting in a wheelchair and therapist is working with her. She says she feels all right this morning. Nurses noted that she did not seem to be quite as mentally sharp as ordinary. OBJECTIVE: GENERAL: The patient is alert, appears in no acute distress. VITAL SIGNS: Show a temperature of 97.8, pulse 104, respirations 20, O2 saturation 94% on 2 L, blood pressure 99/66. Her weight is 182. LUNGS: Clear. HEART: Regular rate. EXTREMITIES: Lower extremities wrapped with the dressings and mild compression wraps, but there is still some edema. She still has ascites present. LABORATORY DATA: Shows an H and H of 10.1 and 35.4, white cell count 11,700 with 78% segs, 9% lymphocytes, and a platelet count of a 195,000. Yesterday sodium 137, potassium 5.4, BUN 58, creatinine 1.63, glucose this morning was 87, alkaline phos 121, AST 23, ALT 19. ASSESSMENT: 1. Severe generalized weakness. a. On admission, unable to ambulate, required assistance with all activities of daily living. b. Following the hospitalization at [facility] from 08/12/19 to 10/03 she improved, was able to sit up in a wheelchair and walk short distances with assistance as of 08/24. 2. Hospitalized at [facility] from 08/12 to 08/17 for acute encephalopathy, pneumonia with sepsis, hypotension, acute renal failure with metabolic acidosis and hyperkalemia requiring emergent dialysis. 3. Chronic right heart failure. 4. Postinflammatory pulmonary fibrosis. a. Secondary to pulmonary tuberculosis. b. Complicated by chronic hypoxic respiratory failure requiring continuous supplemental oxygen. c. Chronic obstructive pulmonary disease. 5. History of active tuberculosis in September of 2017. a. Treated with four drug therapy with rifampin, pyrazinamide, ethambutol, and isoniazid. b. Completed the three drug course. Fourth drug, isoniazid was stopped due to drug-induced hepatitis. c. No evidence of recurrence. 6. Cor pulmonale. 7. Diabetes type 2, insulin requiring. a. The patient has had several episodes of hypoglycemia for which the Lantus had been decreased from 57 to 20 units as she is still having some little episodes where she is a little confused, possibly from still some hypoglycemic episodes. Blood sugar this morning are still a little too tightly controlled as of . 8. Chronic diastolic dysfunction. 9. Cirrhosis of the liver. a. Secondary to drug-induced hepatitis from isoniazid. b. Complicated by chronic ascites. c. Complicated by anemia. The thrombocytopenia has resolved and INR has dropped to 10. Hypertension. 11. Peripheral neuropathy. 12. Cellulitis of the right foot, improved. 13. Chronic kidney disease. 14. Severe peripheral edema secondary to the chronic right heart failure. a. Complicated by some superficial ulceration on the left lower leg that are gradually improving. PLAN: We will reduce patient's Lantus to 15 units as her morning sugars are too tightly controlled and may be contributing to some little confusion. Recheck electrolytes in the morning. Continue PT and OT. Also receives the Ambien which may be a contributor. We will see if she can do without this and try melatonin in its place. Job ID: [id number] [facility]
[2019-08-25] MEDS: traMADol HCl 50 MG TAB PO PRN (20:18)
[2019-08-25] MEDS: Lantus 1000 UNITS/10 ML VIAL SC SCH (20:28)
[2019-08-25] MEDS: Fluconazole 100 MG TAB PO SCH ×2 (20:28→20:36)
[2019-08-26] MEDS: Clindamycin 150 MG CAP PO SCH ×3 (04:09→21:20)
[2019-08-26 05:45] LABS: Anion Gap 15 mmol/L (10-20); BUN (Urea Nitrogen) 59 mg/dL (9.8-20.1); Calc. Creatinine Clearance 42 mL/min (70-130); Calcium 9.1 mg/dL (7.8-10.44); Carbon Dioxide 30 mmol/L (23-31); Chloride 98 mmol/L (98-107); Estimated GFR-MDRD 32; Glucose 163 mg/dL (83-110); Potassium 4.7 mmol/L (3.5-5.1); Sodium 138 mmol/L (136-145)
[2019-08-26] MEDS: HumaLOG 300 UNITS/3 ML VIAL SC PRN ×2 (08:33→17:03)
[2019-08-26] MEDS: Furosemide 80 MG TAB PO SCH (08:34)
[2019-08-26] MEDS: Metolazone 5 MG TAB PO SCH (08:34)
[2019-08-26] MEDS: Atorvastatin Calcium 10 MG TAB PO SCH (08:34)
[2019-08-26] MEDS: Polyethylene Glycol 3350 17 GM Packet PO SCH (08:35)
[2019-08-26] MEDS: Clotrimazole 1% Cream 15 GM TUBE TOP SCH ×2 (08:35→21:21)
[2019-08-26] MEDS: Mag-Al Plus 1200 MG/1200 MG/120 MG/30 ML UDCUP PO PRN (12:14)
[2019-08-26] MEDS: traMADol HCl 50 MG TAB PO PRN (19:37)
[2019-08-26] MEDS: Fluconazole 100 MG TAB PO SCH (21:22)
[2019-08-26] MEDS: Lantus 1000 UNITS/10 ML VIAL SC SCH (21:23)
[2019-08-27] MEDS: Clindamycin 150 MG CAP PO SCH (04:12)
[2019-08-27] MEDS: Mag-Al Plus 1200 MG/1200 MG/120 MG/30 ML UDCUP PO PRN (04:54)
[2019-08-27] MEDS: Clotrimazole 1% Cream 15 GM TUBE TOP SCH ×2 (09:08→20:33)
[2019-08-27] MEDS: Metolazone 5 MG TAB PO SCH (09:08)
[2019-08-27] MEDS: Atorvastatin Calcium 10 MG TAB PO SCH (09:08)
[2019-08-27] MEDS: Furosemide 80 MG TAB PO SCH (09:08)
[2019-08-27] MEDS: Polyethylene Glycol 3350 17 GM Packet PO SCH (09:09)
[2019-08-27] MEDS: traMADol HCl 50 MG TAB PO PRN ×2 (09:09→20:30)
--- NOTE | 2019-08-27 13:25 | PRG ---
DATE OF SERVICE: 08/26/2019 SUBJECTIVE: The patient says she is feeling all right. She had no complaint this morning. OBJECTIVE: GENERAL: The patient was sitting in her chair with her feet elevated. Her legs now in wrap. She looks comfortable, in no distress. VITAL SIGNS: Her temp 97.1, pulse 103, respirations 20, O2 saturation 100% on 2 L, blood pressure 105/68. Her weight for the day was 164, previous weight has been 182. This is probably an error. Weight yesterday was 182. LUNGS: Clear. HEART: Regular rate. EXTREMITIES: Lower extremities, patient has 2+ edema of the lower extremity. There are multiple large blebs over both lower legs, some that ruptured have some superficial ulceration, but some of these areas have healed. The feet are pink. The right second toe has ulceration over the dorsum. In the left toes, there are some spots of infarct. FBS this morning was 90. ASSESSMENT: 1. Severe generalized weakness. a. On admission, unable to ambulate, required assistance with all her ADLs. b. Following hospitalization at [facility] from 08/12 through 08/17. c. Improved, able to sit up in a wheelchair and walk short distances with assistance as of 08/26. 2. Hospitalized at [facility] from 08/12 to 08/17 for acute encephalopathy, pneumonia with sepsis, hypotension, acute renal failure with metabolic acidosis and hyperkalemia, requiring emergent dialysis. 3. Chronic right heart failure. Postinflammatory pulmonary fibrosis. a. Secondary to pulmonary tuberculosis. b. Complicated by chronic hypoxic respiratory failure requiring continuous supplemental O2. 4. History of active tuberculosis in September of 2017. a. Treated with four drug therapy of rifampin, pyrazinamide, ethambutol, and isoniazid. b. Completed with three drug course. The fourth drug isoniazid was stopped due to drug-induced hepatitis. c. No evidence of recurrence. 5. Cor pulmonale. 6. Diabetes type 2, insulin requiring. a. Lantus has been gradually reduced due to patrol lady hypoglycemia. Initially she was on 57 units and now 15 units. 7. Chronic diastolic dysfunction. 8. Cirrhosis of the liver. a. Secondary to drug-induced hepatitis from isoniazid. b. Complicated by chronic ascites. c. Complicated by anemia. The thrombocytopenia has resolved. 9. Hypertension. 10. Peripheral neuropathy. 11. Cellulitis, right foot, resolving. 12. Chronic kidney disease. 13. Chronic obstructive pulmonary disease. 14. Severe peripheral edema secondary to her chronic heart failure. a. Complicated by multiple blisters and ulceration of the lower extremities. 15. Peripheral artery disease. a. Complicated by small vessel disease of the feet. b. Multiple spots in all areas of ulceration over the toes and some necrotic changes of the dorsum of the right second toe. 16. Complicated by multiple blebs of the lower extremities, it is probably more from her edema. PLAN: Continue present care. The legs are being attended by cleaning daily, applying Silvadene cream any superficial ulcerated area and covered with Adaptic and gauze. The legs will then be wrapped from the toes to the knees with Kerlix and Rock wraps with is very mild compression to help control the edema. We will need to continue to carefully observe the patient with these changes in her feet. If this progresses, then she will probably would require bilateral amputations. We will continue her on antibiotics. We will switch her from the clindamycin to cephalexin 500 b.i.d. Job ID: [id number] [facility]
[2019-08-27] MEDS: HumaLOG 300 UNITS/3 ML VIAL SC PRN (17:11)
[2019-08-27] MEDS: Melatonin 3 MG TAB PO PRN (20:23)
[2019-08-27] MEDS: Cephalexin 500 MG CAP PO SCH (20:23)
[2019-08-27] MEDS: Lantus 1000 UNITS/10 ML VIAL SC SCH (20:30)
[2019-08-28 05:45] LABS: #Basophils 0.1 thou/uL (0.0-0.2); #Eosinphils 0.2 thou/uL (0.0-0.7); #Monocytes 0.9 thou/uL (0.11-0.59); #Neutrophils 6.5 thou/uL (1.40-6.50); %Lymphocytes 11.3 % (21.0-51.0); %Monocytes 10.3 % (0.0-10.0); %Neutrophils 75.5 % (42.0-75.0); Hemoglobin 10.7 g/dL (12.0-16.0); Mean Corpuscular HGB CONC 29.5 g/dL (32.0-36.0); Mean Corpuscular Hemoglobin 26.1 pg (27.0-31.0); Mean Corpuscular Volume 88.4 fL (78.0-98.0); Mean Platelet Volume 7.4 fL (7.4-10.4); Platelet Count 189 thou/uL (130-400); RBC Distribution Width 17.5 % (11.5-14.5); Red Blood Cell (RBC) Count 4.08 mill/uL (4.20-5.40); White Blood Cell (WBC) Count 8.6 thou/uL (4.8-10.8)
[2019-08-28 05:58] LABS: Anion Gap 19 mmol/L (10-20); BUN (Urea Nitrogen) 52 mg/dL (9.8-20.1); Calc. Creatinine Clearance 44 mL/min (70-130); Carbon Dioxide 28 mmol/L (23-31); Chloride 98 mmol/L (98-107); Estimated GFR-MDRD 37; Glucose 108 mg/dL (83-110); Potassium 4.6 mmol/L (3.5-5.1); Sodium 140 mmol/L (136-145)
[2019-08-28] MEDS: Cephalexin 500 MG CAP PO SCH ×2 (08:32→21:25)
[2019-08-28] MEDS: Metolazone 5 MG TAB PO SCH (08:32)
[2019-08-28] MEDS: Mag-Al Plus 1200 MG/1200 MG/120 MG/30 ML UDCUP PO PRN (08:32)
[2019-08-28] MEDS: Furosemide 80 MG TAB PO SCH (08:32)
[2019-08-28] MEDS: Atorvastatin Calcium 10 MG TAB PO SCH (08:32)
[2019-08-28] MEDS: Polyethylene Glycol 3350 17 GM Packet PO SCH (08:32)
[2019-08-28] MEDS: Clotrimazole 1% Cream 15 GM TUBE TOP SCH ×2 (08:32→21:26)
[2019-08-28] MEDS: traMADol HCl 50 MG TAB PO PRN (15:27)
[2019-08-28] MEDS: Silver Sulfadiazine 50 GM TUBE TOP PRN (15:36)
--- NOTE | 2019-08-28 17:21 | PRG ---
DATE OF SERVICE: 08/28/2019 SUBJECTIVE: The patient says she is doing good. She had no complaint. OBJECTIVE: GENERAL: The patient is lying back in her geriatric chair. She is comfortable, talkative, and appears in no distress. VITAL SIGNS: Her temp is 97.4, pulse 108, respirations are 16, O2 saturation 94 % on 2 L, blood pressure 114/76. LUNGS: Clear. HEART: Regular rate. EXTREMITIES: Lower extremity; there is still edema of the lower legs, probably 2+ in the legs, 1+ in the feet. The feet are pink color. She has a little gangrenous change on the plantar surface of the left great toe that is unchanged and also the gangrenous change on the tip of the left 4th toe in the plantar surface that is unchanged. The right 2nd toe has the ulceration on the lateral side of the digit and on the dorsum of the digits that is stable. The patient still has the multiple blebs on the anterior lower legs, some of these ruptured leaving superficial ulceration. The legs look stable, not worse. The color of the feet actually looks better. LABORATORY DATA: Her lab shows an H and H of 10.7 and 36.1, white blood cell count 8600 with 76% segs, 11% lymphocytes, and a platelet count of 189. Sodium 140; potassium 4.6 ; BUN 52, down from a high during this admission of 59; her creatinine is 1.39, down from a high of 1.63 during this admission. GFR 37, up from a low of 31. FBS 108. ASSESSMENT: 1. Severe generalized weakness. a. On admission, unable to ambulate, required assistance with all her ADLs. b. Following hospitalization from [facility] from 08/12 to 2019. c. Improved, able to sit up in a wheelchair and walk short distances with assistance as of 08/27. 2. Hospitalized at [facility] from 08/12 to 08/18/2019 for acute encephalopathy, pneumonia with sepsis, hypotension, acute renal failure with metabolic acidosis and hyperkalemia, requiring emergent dialysis. 3. Chronic right heart failure. a. Stable as of 08/27. 4. Postinflammatory pulmonary fibrosis. a. Secondary to pulmonary tuberculosis. b. Complicated by chronic hypoxic respiratory failure, requiring continuous supplemental O2. 5. History of active tuberculosis in September of 2017. a. Treated with 4 drug regimen of rifampin, pyrazinamide, ethambutol, and isoniazid. b. Completed 3 drug course. The 4th drug isoniazid was stopped due to drug- induced hepatitis. c. No evidence of recurrence. 6. Cor pulmonale. 7. Diabetes, type 2, insulin requiring. a. Complicated by episodes of hypoglycemia that have required gradual reduction in the Lantus from 57 to 15 units. b. No recurrence of the hypoglycemia as of 08/27. 8. Chronic diastolic dysfunction. 9. Cirrhosis of the liver. a. Secondary to drug-induced hepatitis from isoniazid. b. Complicated by chronic ascites. c. Complicated by anemia. Thrombocytopenia, resolved. 10. Hypertension. 11. Peripheral neuropathy. 12. Cellulitis of the right foot, resolved. 13. Chronic kidney disease. a. Mild improvement with GFR of 37 from a low of 31 during this admission on 08/23. 14. Chronic obstructive pulmonary disease. 15. Severe peripheral edema secondary to the chronic right heart failure. a. Complicated by anasarca of the lower extremities. b. The edema has improved as of 08/27. c. Complicated by multiple blebs on the anterior lower leg that is stable as of 08/27. 16. Peripheral artery disease. a. Complicated by small vessel disease of the feet. b. Complicated by multiple spots of ulceration over the toes and over the right 2nd toe on the medial and dorsal aspect that are stable as of 08/27. PLAN: Continue present care. Continue the antibiotics. Continue the local care to the wounds of the feet and the blisters using daily cleaning with saline, application of Silvadene cream to the raw areas. Continue to cover the raw areas and blisters with Adaptic gauze and wrap the lower legs with Kerlix and then mild compression wraps from the toes to the knees. We will have to continue to carefully observe these areas. This may progress and potentially could eventually require amputations. Job ID: [id number] [facility]
[2019-08-28] MEDS: Lantus 1000 UNITS/10 ML VIAL SC SCH (21:26)
[2019-08-29] MEDS: traMADol HCl 50 MG TAB PO PRN ×3 (05:31→21:34)
[2019-08-29] MEDS: Furosemide 80 MG TAB PO SCH (08:21)
[2019-08-29] MEDS: Clotrimazole 1% Cream 15 GM TUBE TOP SCH ×2 (08:21→21:58)
[2019-08-29] MEDS: Atorvastatin Calcium 10 MG TAB PO SCH (08:21)
[2019-08-29] MEDS: Cephalexin 500 MG CAP PO SCH ×2 (08:21→21:34)
[2019-08-29] MEDS: Polyethylene Glycol 3350 17 GM Packet PO SCH (08:21)
[2019-08-29] MEDS: Metolazone 5 MG TAB PO SCH (08:21)
[2019-08-29] MEDS: Silver Sulfadiazine 50 GM TUBE TOP PRN (14:09)
[2019-08-29] MEDS: Melatonin 3 MG TAB PO PRN (21:34)
[2019-08-29] MEDS: Lantus 1000 UNITS/10 ML VIAL SC SCH (21:36)
[2019-08-30] MEDS: Furosemide 80 MG TAB PO SCH (08:52)
[2019-08-30] MEDS: Atorvastatin Calcium 10 MG TAB PO SCH (08:52)
[2019-08-30] MEDS: Cephalexin 500 MG CAP PO SCH ×2 (08:52→21:42)
[2019-08-30] MEDS: Metolazone 5 MG TAB PO SCH (08:52)
[2019-08-30] MEDS: Polyethylene Glycol 3350 17 GM Packet PO SCH (08:53)
[2019-08-30] MEDS: Clotrimazole 1% Cream 15 GM TUBE TOP SCH (08:53)
[2019-08-30] MEDS: Acetaminophen 325 MG TAB PO PRN (08:58)
[2019-08-30] MEDS: HumaLOG 300 UNITS/3 ML VIAL SC PRN (17:07)
[2019-08-30] MEDS: Lantus 1000 UNITS/10 ML VIAL SC SCH (21:42)
[2019-08-30] MEDS: traMADol HCl 50 MG TAB PO PRN (21:42)
[2019-08-30] MEDS: Melatonin 3 MG TAB PO PRN (21:43)
[2019-08-31] MEDS: Acetaminophen 325 MG TAB PO PRN (00:10)
[2019-08-31] MEDS: Clotrimazole 1% Cream 15 GM TUBE TOP SCH ×3 (00:14→20:51)
[2019-08-31] MEDS: Atorvastatin Calcium 10 MG TAB PO SCH (08:21)
[2019-08-31] MEDS: Cephalexin 500 MG CAP PO SCH ×2 (08:22→20:50)
[2019-08-31] MEDS: Furosemide 80 MG TAB PO SCH (08:22)
[2019-08-31] MEDS: Metolazone 5 MG TAB PO SCH (08:22)
[2019-08-31] MEDS: Polyethylene Glycol 3350 17 GM Packet PO SCH (08:22)
--- NOTE | 2019-08-31 09:54 | PRG ---
DATE OF SERVICE: 08/31/2019 SUBJECTIVE: The patient says she is feeling better. She continues to work with Physical Therapy. OBJECTIVE: GENERAL: The patient is sitting in her [place] chair with her feet elevated. VITAL SIGNS: Her temperature 96.9, pulse 107, respirations 18, O2 saturation 100% on 2 L, blood pressure 127/75. Her weight 162. LUNGS: Clear. HEART: Regular rate. EXTREMITIES: Lower extremities; the legs look better. There is less edema in the lower legs. The pinkness to the lower legs has resolved. Feet look better. On the toes, she still has spots of ulcerations on the toes, but these look better. The right second toe with the ulceration looks a little better. The lower legs have still one large bleb on the right lateral aspect. The remainder of the ulcerate have ruptured and the wound bases are healing. Overall, the legs and feet look better. Feet are pink. PHYSICAL EXAMINATION: FBS was 89. ASSESSMENT: 1. Severe generalized weakness. a. On admission, unable to ambulate, required assistance with all her ADLs. b. Following hospitalization at [facility] 08/12-08/18/2019. c. Improved. Walking short distance with rolling walker. Transferring with assistance. Tolerates sitting up for long periods in a chair as of . 2. Hospitalized at [facility] from 08/12-08/17 for acute encephalopathy , pneumonia with sepsis, hypotension, acute renal failure with metabolic acidosis and hyperkalemia, requiring emergent dialysis. 3. Chronic right heart failure. a. Stable as of 08/30. 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 b. Complicated by chronic hypoxic respiratory failure, requiring continuous supplemental O2. 5. History of active tuberculosis, September 2017. a. Treated with four-drug regimen of rifampin, pyrazinamide, ethambutol, and isoniazid. b. Completed three-drug course. The 4th drug isoniazid was stopped due to drug-induced hepatitis. c. No evidence of recurrence. 6. Cor pulmonale. 7. Diabetes type 2, insulin requiring. a. Complicated by episodes of hypoglycemia that has required gradual reduction in her Lantus from 57 to 15 units. b. No recurrence of symptomatic hypoglycemia as of 08/30. 8. Chronic diastolic dysfunction. 9. Cirrhosis of the liver. a. Secondary to drug-induced hepatitis from isoniazid. b. Complicated by chronic ascites. 10. Hypertension. 11. Peripheral neuropathy. 12. Cellulitis of right foot, resolved. 13. Chronic kidney disease. GFR 37 on 08/23. 14. Chronic obstructive pulmonary disease. 15. Severe peripheral edema secondary to the chronic right heart failure. a. Improved. b. Complicated by multiple blebs on the lower extremities that is improving as of 08/30. 16. Peripheral artery disease. a. Complicated by small-vessel disease of the feet. b. Complicated by multiple sores and ulceration of the toes and over the right second toe, which is improving as of 08/30. PLAN: Continue present care. Continue PT and OT. [facility] [id number] [facility]
[2019-08-31] MEDS: Melatonin 3 MG TAB PO PRN (20:50)
[2019-08-31] MEDS: traMADol HCl 50 MG TAB PO PRN (20:50)
[2019-08-31] MEDS: Lantus 1000 UNITS/10 ML VIAL SC SCH (20:54)
[2019-09-01] MEDS: Metolazone 5 MG TAB PO SCH (08:51)
[2019-09-01] MEDS: Furosemide 80 MG TAB PO SCH (08:51)
[2019-09-01] MEDS: Cephalexin 500 MG CAP PO SCH ×2 (08:51→21:12)
[2019-09-01] MEDS: Clotrimazole 1% Cream 15 GM TUBE TOP SCH ×2 (08:51→21:12)
[2019-09-01] MEDS: Atorvastatin Calcium 10 MG TAB PO SCH (08:51)
[2019-09-01] MEDS: Polyethylene Glycol 3350 17 GM Packet PO SCH (08:52)
[2019-09-01 09:39] LABS: ALT (SGPT) 15 U/L (8-55); AST (SGOT) 20 U/L (5-34); Albumin 3.7 g/dL (3.4-4.8); Alkaline Phosphatase 122 U/L (40-110); Anion Gap 19 mmol/L (10-20); BUN (Urea Nitrogen) 51 mg/dL (9.8-20.1); Bilirubin, Total 1.1 mg/dL (0.2-1.2); Calc. Creatinine Clearance 42 mL/min (70-130); Calcium 9.2 mg/dL (7.8-10.44); Carbon Dioxide 31 mmol/L (23-31); Chloride 92 mmol/L (98-107); Estimated GFR-MDRD 37; Globulin 3.4 g/dL (2.4-3.5); Glucose 149 mg/dL (83-110); Potassium 4.2 mmol/L (3.5-5.1); Protein, Total 7.1 g/dL (6.0-8.3); Sodium 138 mmol/L (136-145)
--- NOTE | 2019-09-01 10:27 | PRG ---
DATE OF SERVICE: 09/01/2019 SUBJECTIVE: The patient says she feels good today. She said she slept good last night. She continues to work with Physical Therapy and is now walking up to 65 feet two times a day with a rolling walker and standby assistance. She requires standby assistance with transfers. OBJECTIVE: GENERAL: The patient is sitting up in a chair, alert, talkative, appears comfortable, and in no distress. VITAL SIGNS: Her temp 97.1, pulse 101, respirations 16, O2 saturation 97% on 2 L, blood pressure 108/65. Her weight is down to 159. LUNGS: Clear. HEART: Regular rate. EXTREMITIES: Have mild compression wraps. These will be changed later for redressing of the wounds and rewrapping with mild compression wraps. Her FBS this morning was 129. ASSESSMENT: 1. Severe generalized weakness. a. On admission, unable to ambulate, required assistance for her activities of daily living. b. Following hospitalization at [facility] from 08/12 to 08/17. c. Improved. Walking up to 65 feet twice today with a rolling walker and standby assist. Transferring with standby assist as of 08/31. 2. Hospitalized at [facility] from 08/12 to 08/17 for acute encephalopathy, pneumonia with sepsis, hypotension, acute renal failure with metabolic acidosis and hyperkalemia requiring emergent dialysis. 3. Chronic heart failure. a. Gradual improvement as of 08/31. Weight down to 159 from a high of 182 as of 08/31. 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 b. Complicated by chronic hypoxic respiratory failure requiring continuous supplemental O2. 5. History of active tuberculosis in September 2017. a. Treated with four drug regimen of rifampin, pyrazinamide, ethambutol and isoniazid. b. Completed 3 drug course. The 4th drug isoniazid was stopped due to drug- induced hepatitis. 6. Cor pulmonale. 7. Diabetes type 2. a. Complicated by episodes of hypoglycemia that has required gradual reduction of Lantus from 57 units to 15 units. b. No symptomatic hypoglycemic episodes through 08/31. 8. Chronic diastolic dysfunction. 9. Cirrhosis of the liver. a. Secondary to drug-induced hepatitis from isoniazid. b. Complicated by chronic ascites stable as of 08/31. 10. Hypertension. 11. Peripheral neuropathy. 12. Cellulitis, right foot, resolved. 13. Chronic kidney disease, glomerular filtration rate of 37 on 08/23/2009. 14. Chronic obstructive pulmonary disease. 15. Severe peripheral edema secondary to chronic right heart failure. a. Improved. b. Complicated by multiple blebs on the lower extremity. They are gradually improving. 16. Peripheral artery disease. a. Complicated by small vessel disease of the feet. b. Complicated by multiple ulcerations on the toes and over the right 2nd toe, which are improving. PLAN: Continue present care. Continue PT and OT. Job ID: [id number] [facility]
[2019-09-01] MEDS: Mag-Al Plus 1200 MG/1200 MG/120 MG/30 ML UDCUP PO PRN (13:38)
[2019-09-01] MEDS: traMADol HCl 50 MG TAB PO PRN ×2 (14:18→21:13)
[2019-09-01] MEDS: Silver Sulfadiazine 50 GM TUBE TOP PRN (15:40)
[2019-09-01] MEDS: Lantus 1000 UNITS/10 ML VIAL SC SCH (21:12)
[2019-09-01] MEDS: Melatonin 3 MG TAB PO PRN (21:13)
[2019-09-02 05:53] LABS: #Basophils 0.1 thou/uL (0.0-0.2); #Eosinphils 0.2 thou/uL (0.0-0.7); #Monocytes 0.8 thou/uL (0.11-0.59); #Neutrophils 4.7 thou/uL (1.40-6.50); %Eosinophils 2.8 % (0.0-10.0); %Monocytes 12.2 % (0.0-10.0); Hemoglobin 9.8 g/dL (12.0-16.0); Mean Corpuscular HGB CONC 29.2 g/dL (32.0-36.0); Mean Corpuscular Hemoglobin 26.1 pg (27.0-31.0); Mean Corpuscular Volume 89.3 fL (78.0-98.0); Mean Platelet Volume 8.3 fL (7.4-10.4); Platelet Count 175 thou/uL (130-400); RBC Distribution Width 16.6 % (11.5-14.5); Red Blood Cell (RBC) Count 3.77 mill/uL (4.20-5.40); White Blood Cell (WBC) Count 6.9 thou/uL (4.8-10.8)
[2019-09-02] MEDS: Cephalexin 500 MG CAP PO SCH ×2 (08:11→21:21)
[2019-09-02] MEDS: Polyethylene Glycol 3350 17 GM Packet PO SCH (08:12)
[2019-09-02] MEDS: Metolazone 5 MG TAB PO SCH (08:12)
[2019-09-02] MEDS: Furosemide 80 MG TAB PO SCH (08:12)
[2019-09-02] MEDS: Silver Sulfadiazine 50 GM TUBE TOP PRN ×2 (08:13→11:29)
[2019-09-02] MEDS: Clotrimazole 1% Cream 15 GM TUBE TOP SCH ×2 (08:14→21:23)
[2019-09-02] MEDS: Atorvastatin Calcium 10 MG TAB PO SCH (08:15)
[2019-09-02] MEDS: traMADol HCl 50 MG TAB PO PRN ×2 (08:16→21:22)
--- NOTE | 2019-09-02 09:43 | PRG ---
DATE OF SERVICE: 09/02/2019 SUBJECTIVE: The patient says she is feeling better, she slept good. She is not having any trouble with her breathing. She is doing well with physical therapy. Nurses reported when her legs were changed yesterday, they looked better. She is due to have these changed today and we will try to see how they are progressing. OBJECTIVE: GENERAL: The patient is sitting up in her [place] chair. She is alert , appears comfortable, in no distress. VITAL SIGNS: Her temp 97.6, pulse 101, respirations 16, O2 saturation 96% on 3 L, blood pressure 109/70. LUNGS: Clear. HEART: Regular rate. EXTREMITIES: Lower extremities have the dressings and the compression wraps, the legs seem no bigger. The legs have been undressed and I was able to look at the legs. The legs look much better. They are little slightly pink. There is no redness. No increased heat. There is only one remaining bleb that is no longer tense over the right lateral lower leg. Most of the areas of the superficial ulceration where the blisters were are healing, but still not fully epithelialized. The toes look better. The little tiny spots of sores on the toes are all healing. The right second toe looks better also. LABORATORY DATA: Shows an H and H of 9.8 and 33.7, white cell count 6900, 69% segs, 15% lymphocytes, and a platelet count of 175,000. Her FBS this morning was 90. Yesterday, her sodium 138, potassium 4.2, BUN 51, creatinine 1.39. ASSESSMENT: 1. Severe generalized weakness. a. On admission, unable to ambulate, required assistance with all her ADLs. b. Following hospitalization at [facility] from 08/12 to 08/18/19. c. Improved. Walking up to 65 feet twice a day with rolling walker and standby assistance. Transferring with standby assistance and caregiver assist as of 09/01. 2. Hospitalized at [facility] from 08/12 to 08/17 for acute encephalopathy, pneumonia with sepsis, hypotension, acute renal failure with metabolic acidosis and hyperkalemia requiring emergent dialysis. 3. Chronic heart failure. a. Gradual improvement as of 09/01. Weight down to 157 from a high of 182 as of 09/01. 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 b. Complicated by chronic hypoxic respiratory failure requiring continuous supplemental O2. 5. History of active tuberculosis, September 2017. a. Treated with four drug regimen of rifampin, pyrazinamide, ethambutol, and isoniazid. b. Completed a three drug course. The fourth drug isoniazid was stopped due to drug-induced hepatitis. 6. Cor pulmonale. 7. Diabetes type 2. a. Controlled with no symptomatic hypoglycemic episode. 8. Chronic diastolic dysfunction. 9. Cirrhosis of the liver. a. Secondary to drug-induced hepatitis from isoniazid. b. Complicated by chronic ascites, stable as of 09/01. 10. Hypertension. 11. Peripheral neuropathy. 12. Cellulitis of the right foot, resolved. 13. Chronic kidney disease, stable. 14. Chronic obstructive pulmonary disease. 15. Severe peripheral edema secondary to a chronic right heart failure. a. Improved. b. Complicated by multiple blebs of the lower extremities that are improving. 16. Peripheral artery disease. a. Complicated by small vessel disease of the feet. b. Complicated by multiple small ulceration on the toes and ulceration of the right second toe that is improving. PLAN: Continue present care. Continue PT. Job ID: [id number] MTDD
[2019-09-02] MEDS ORDERED: Sodium Chloride 0.65% Nasal 44 ML BOT EA NARE PRN (11:15)
[2019-09-02] MEDS: Ondansetron ODT 4 MG TAB PO PRN (13:26)
[2019-09-02] MEDS: Melatonin 3 MG TAB PO PRN (21:21)
[2019-09-02] MEDS: Lantus 1000 UNITS/10 ML VIAL SC SCH (21:23)
[2019-09-03] MEDS: Metolazone 5 MG TAB PO SCH (09:28)
[2019-09-03] MEDS: Cephalexin 500 MG CAP PO SCH ×2 (09:28→20:54)
[2019-09-03] MEDS: Furosemide 80 MG TAB PO SCH (09:28)
[2019-09-03] MEDS: Atorvastatin Calcium 10 MG TAB PO SCH (09:28)
[2019-09-03] MEDS: Polyethylene Glycol 3350 17 GM Packet PO SCH (09:28)
[2019-09-03] MEDS: Clotrimazole 1% Cream 15 GM TUBE TOP SCH ×2 (09:30→20:54)
--- NOTE | 2019-09-03 14:38 | PRG ---
DATE OF SERVICE: 09/03/2019 SUBJECTIVE: The patient says she feels good. She rested good last night and she has had a good workup with physical therapy today. OBJECTIVE: GENERAL: The patient is sitting up in her chair in her room, appears comfortable, in no distress. VITAL SIGNS: Her temperature is 97.8, pulse 100, respirations 17, O2 saturation 99% on 2 L, blood pressure 105/69. LUNGS: Clear. HEART: Regular rate. EXTREMITIES: Lower extremities are wrapped with Kerlix and Rock wraps. The legs do not look any more swell, these have been through the dressings. These will be changed later by the nursing staff. Yesterday, they looked excellent. LABORATORY DATA: FBS this morning 88. ASSESSMENT: 1. Severe generalized weakness. a. On admission, unable to ambulate, required assistance with all her ADLs. b. Following hospitalization at [facility] from 08/12 to 2019. c. Improved, walking at least 65 feet twice a day with a rolling walker and standby assistance. Transferring with standby and caregiver assist as of . 2. Hospitalized at [facility] from 08/12 to 08/17 for acute encephalopathy, pneumonia with sepsis, hypotension, acute renal failure with metabolic acidosis and hyperkalemia requiring emergent dialysis. 3. Chronic heart failure. a. Gradual improvement as of 09/02. Weight is stable at 158. 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 b. Complicated by chronic hypoxic respiratory failure requiring continuous supplemental O2. 5. History of active tuberculosis. a. Treated with four drug regimen; rifampin, pyrazinamide, ethambutol, and isoniazid. b. Completed three drug course. 4th drug isoniazid was stopped due to drug- induced hepatitis. 6. Cor pulmonale. 7. Diabetes type 2. a. Controlled with no symptoms of hypoglycemia. 8. Cirrhosis of the liver. a. Secondary to drug-induced hepatitis from isoniazid. b. Complicated by ascites and stable as of 09/02. 9. Hypertension. 10. Peripheral neuropathy. 11. Cellulitis of the right foot, resolved. 12. Chronic kidney disease, stable. 13. Chronic obstructive pulmonary disease. 14. Severe peripheral edema secondary to chronic right heart failure. a. Improved. b. Complicated by multiple blebs on the lower extremities that are gradually healing. 15. Peripheral artery disease. a. Complicated by small vessel disease of the feet. b. Complicated by multiple small ulceration on the toes and ulceration of the left second toe that are all improving. PLAN: Continue present care. Continue PT. Continue present wound care. I visited with her daughter Abi over the telephone and just gave her an update. Recommend that the patient stay here at least another week for the continued wound care and PT, which Abi understood the reasoning for this. Job ID: [id number] MTDD
[2019-09-03] MEDS: Lantus 1000 UNITS/10 ML VIAL SC SCH (20:55)
[2019-09-03] MEDS: traMADol HCl 50 MG TAB PO PRN (20:55)
[2019-09-03] MEDS: Melatonin 3 MG TAB PO PRN (20:56)
[2019-09-04] MEDS: Atorvastatin Calcium 10 MG TAB PO SCH (08:34)
[2019-09-04] MEDS: Cephalexin 500 MG CAP PO SCH ×2 (08:35→21:07)
[2019-09-04] MEDS: Furosemide 80 MG TAB PO SCH (08:35)
[2019-09-04] MEDS: Metolazone 5 MG TAB PO SCH (08:35)
[2019-09-04] MEDS: Polyethylene Glycol 3350 17 GM Packet PO SCH (08:36)
[2019-09-04] MEDS: Clotrimazole 1% Cream 15 GM TUBE TOP SCH ×2 (08:36→21:08)
[2019-09-04] MEDS: Acetaminophen 325 MG TAB PO PRN (08:40)
[2019-09-04] MEDS: Lantus 1000 UNITS/10 ML VIAL SC SCH (21:08)
[2019-09-04] MEDS: traMADol HCl 50 MG TAB PO PRN (21:08)
[2019-09-05] MEDS: Cephalexin 500 MG CAP PO SCH ×2 (08:50→21:17)
[2019-09-05] MEDS: Atorvastatin Calcium 10 MG TAB PO SCH (08:50)
[2019-09-05] MEDS: Clotrimazole 1% Cream 15 GM TUBE TOP SCH ×2 (08:51→21:17)
[2019-09-05] MEDS: Metolazone 5 MG TAB PO SCH (08:51)
[2019-09-05] MEDS: Furosemide 80 MG TAB PO SCH (08:51)
[2019-09-05] MEDS: Polyethylene Glycol 3350 17 GM Packet PO SCH (08:53)
[2019-09-05] MEDS: HumaLOG 300 UNITS/3 ML VIAL SC PRN (19:19)
[2019-09-05] MEDS: Melatonin 3 MG TAB PO PRN (21:17)
[2019-09-05] MEDS: traMADol HCl 50 MG TAB PO PRN (21:18)
[2019-09-05] MEDS: Lantus 1000 UNITS/10 ML VIAL SC SCH (21:19)
[2019-09-06] MEDS: Cephalexin 500 MG CAP PO SCH ×2 (08:20→21:21)
[2019-09-06] MEDS: Furosemide 80 MG TAB PO SCH (08:20)
[2019-09-06] MEDS: Atorvastatin Calcium 10 MG TAB PO SCH (08:20)
[2019-09-06] MEDS: Metolazone 5 MG TAB PO SCH (08:20)
[2019-09-06] MEDS: Acetaminophen 325 MG TAB PO PRN (08:20)
[2019-09-06] MEDS: Polyethylene Glycol 3350 17 GM Packet PO SCH (08:21)
[2019-09-06] MEDS: Clotrimazole 1% Cream 15 GM TUBE TOP SCH ×2 (08:21→21:22)
[2019-09-06] MEDS: Silver Sulfadiazine 50 GM TUBE TOP PRN (10:00)
--- NOTE | 2019-09-06 11:14 | PRG ---
DATE OF SERVICE: 09/06/2019 SUBJECTIVE: Patient says she is feeling better. She had no complaints. She is doing better with physical therapy. OBJECTIVE: GENERAL: Patient is alert, appears in no distress. VITAL SIGNS: Temperature of 97, pulse 95, respirations 16, O2 saturation 100% on 2 L, blood pressure 101/65. Her weight is 156. LUNGS: Clear. HEART: Regular rate. EXTREMITIES: Lower extremities have trace edema. There is no redness or increased heat. All the blisters and blebs have resolved. The bases of these blisters that were raw are all healing and are developing a little thin scab overlying. The little tiny sores on the toes of the feet are all healing. The right second toe also looks better and has some little crusting over the ulcerative areas, but overall looks better. Her FBS this morning was 114. ASSESSMENT: 1. Severe generalized weakness. a. On admission, unable to ambulate, required assistance with all her ADLs. b. Followed a hospitalization at [facility] from 08/12 to 08/18/19. c. Improved. Walking at least 65 feet, does two times a day with a rolling walker and standby assistance. Transferring with standby or caregiver assist as of 09/05. 2. Hospitalized at [facility] from 08/12 to 08/17 for acute encephalopathy, pneumonia with sepsis, hypotension, acute renal failure with metabolic acidosis and hyperkalemia requiring emergent dialysis. 3. Chronic right heart failure. a. Continued improvement with weight down to 156 as of 09/05. 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 b. Complicated by chronic hypoxic respiratory failure requiring continuous supplemental O2. 5. History of active tuberculosis. a. Treated initially with four drug regimen, rifampin, pyrazinamide, ethambutol, and isoniazid. b. Completed three drug course. Fourth drug isoniazid was stopped due to drug-induced hepatitis. 6. Cor pulmonale. 7. Diabetes type 2. a. Controlled with no evidence of hypoglycemia. 8. Cirrhosis of the liver. a. Secondary to drug-induced hepatitis from isoniazid. b. Complicated by ascites, stable as of 09/05. 9. Hypertension. 10. Peripheral neuropathy. 11. Cellulitis of the right foot, resolved. 12. Chronic kidney disease, stable. 13. Chronic obstructive pulmonary disease. 14. Severe peripheral edema secondary to chronic right heart failure. a. Improved. b. Complicated by multiple blebs that have all ruptured and bases were all healing as of 09/05. 15. Peripheral artery disease. a. Complicated by small vessel disease of the feet. b. Complicated by multiple small ulcerations of the toes and of the right second toe that continues to improve. PLAN: Continue present care. Continue PT and OT. Job ID: [id number] [facility]
[2019-09-06 12:54] VITALS: BMI 24.4
[2019-09-06] MEDS ORDERED: Sodium Chloride Irrig Solution 250 ML BOT ONE (14:05)
[2019-09-06] MEDS: HumaLOG 300 UNITS/3 ML VIAL SC PRN (17:16)
[2019-09-06] MEDS: traMADol HCl 50 MG TAB PO PRN (21:28)
[2019-09-06] MEDS: Melatonin 3 MG TAB PO PRN (21:28)
[2019-09-06] MEDS: Lantus 1000 UNITS/10 ML VIAL SC SCH (21:30)
[2019-09-07 05:22] LABS: #Basophils 0.1 thou/uL (0.0-0.2); #Eosinphils 0.2 thou/uL (0.0-0.7); #Lymphocytes 1.1 thou/uL (1.20-3.40); #Monocytes 0.8 thou/uL (0.11-0.59); #Neutrophils 5.2 thou/uL (1.40-6.50); %Basophils 0.8 % (0.0-1.0); %Eosinophils 2.6 % (0.0-10.0); %Monocytes 11.1 % (0.0-10.0); %Neutrophils 70.5 % (42.0-75.0); Hemoglobin 10.4 g/dL (12.0-16.0); Mean Corpuscular HGB CONC 29.2 g/dL (32.0-36.0); Mean Corpuscular Hemoglobin 25.7 pg (27.0-31.0); Mean Platelet Volume 7.3 fL (7.4-10.4); Platelet Count 176 thou/uL (130-400); RBC Distribution Width 16.2 % (11.5-14.5); Red Blood Cell (RBC) Count 4.04 mill/uL (4.20-5.40); White Blood Cell (WBC) Count 7.4 thou/uL (4.8-10.8)
[2019-09-07 05:43] LABS: ALT (SGPT) 12 U/L (8-55); AST (SGOT) 22 U/L (5-34); Albumin 4.1 g/dL (3.4-4.8); Alkaline Phosphatase 135 U/L (40-110); Anion Gap 20 mmol/L (10-20); BUN (Urea Nitrogen) 47 mg/dL (9.8-20.1); Bilirubin, Total 1.3 mg/dL (0.2-1.2); Calc. Creatinine Clearance 39 mL/min (70-130); Calcium 9.7 mg/dL (7.8-10.44); Carbon Dioxide 34 mmol/L (23-31); Chloride 89 mmol/L (98-107); Estimated GFR-MDRD 34; Globulin 3.6 g/dL (2.4-3.5); Glucose 104 mg/dL (83-110); Potassium 3.8 mmol/L (3.5-5.1); Protein, Total 7.7 g/dL (6.0-8.3); Sodium 139 mmol/L (136-145)
[2019-09-07] MEDS: Metolazone 5 MG TAB PO SCH (08:14)
[2019-09-07] MEDS: Furosemide 80 MG TAB PO SCH (08:14)
[2019-09-07] MEDS: Cephalexin 500 MG CAP PO SCH ×2 (08:14→20:00)
[2019-09-07] MEDS: Clotrimazole 1% Cream 15 GM TUBE TOP SCH ×2 (08:15→20:00)
[2019-09-07] MEDS: Atorvastatin Calcium 10 MG TAB PO SCH (08:21)
[2019-09-07] MEDS: Polyethylene Glycol 3350 17 GM Packet PO SCH ×3 (08:22→13:24)
--- NOTE | 2019-09-07 10:12 | PRG ---
DATE OF SERVICE: 09/07/2019 SUBJECTIVE: The patient says she is doing good this morning. She continues to work with physical therapy and is walking up to 70 to 120 feet with a rolling walker and standby assistance. She is transferring with just standby assistance. OBJECTIVE: GENERAL: The patient is sitting up in her chair. She is alert, talkative, appears comfortable, in no distress. VITAL SIGNS: Her temp is 97.7, pulse 102 respirations 16, O2 saturation 98% on 2 L, blood pressure 111/65. Her weight is stable at 156. LUNGS: Clear. HEART: Regular rate. EXTREMITIES: Lower extremities, the patient's lower legs are wrapped with Kerlix and 2-layer mild compression wraps. The edema is continuing to improve with these wraps. When the skin was last looked at, they looked excellent and improving. These will be addressed later today. If there is any change, her nurses will let me know. LABORATORY DATA: Lab shows an H and H of 10.4 and 35.6, white cell count 7400, 71% segs, 15% lymphocytes, and a platelet count of 176,000. Her sodium 139, potassium 3.8, BUN 47, down from a high of 59, creatinine 1.5, GFR 34, FBS 104, AST 22, ALT 112, total bilirubin 1.3. ASSESSMENT: 1. Severe generalized weakness. a. On admission, unable to ambulate, required assistance with all her ADLs. b. Followed by hospitalization at [facility] from 08/12/2019 to 09/2019. c. Improved, walking 70 to 120 feet with a rolling walker and standby assistance. Transferring was standby assistance as of 09/06. 2. Hospitalized at [facility] from 08/12 to 08/17 for acute encephalopathy, pneumonia with sepsis, hypotension, acute renal failure with metabolic acidosis in hyperkalemia requiring dialysis. 3. Chronic right heart failure. a. Continued improvement with weight stable at 156 as of 09/06. 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 b. Complicated by chronic hypoxic respiratory failure requiring continuous supplemental O2. 5. History of active tuberculosis. a. Treated with 4-drug regimen, rifampin, pyrazinamide, ethambutol, and isoniazid. b. Completed a 3-drug course. 4-drug isoniazid stopped due to drug-induced hepatitis. 6. Cor pulmonale. 7. Diabetes type 2. a. Controlled with no evidence of hypoglycemia. 8. Cirrhosis of the liver. a. Secondary to drug-induced hepatitis from isoniazid. b. Complicated by ascites, stable as of 09/06. 9. Hypertension. 10. Peripheral neuropathy. 11. Cellulitis of the right foot, resolved. 12. Chronic kidney disease, stable. 13. Chronic obstructive pulmonary disease. 14. Severe peripheral edema secondary to chronic heart failure. a. Improved. b. Complicated by multiple blebs that have all ruptured and all the bases are healing as of 09/06. 15. Peripheral artery disease. a. Complicated by small-vessel disease of the feet. b. Complicated by multiple ulcerations of the toes and the right second toe that all are improving. PLAN: Continue present wound care. Continue PT and OT. Continue present medicines. Job ID: [id number] MTDD
[2019-09-07] MEDS: Silver Sulfadiazine 50 GM TUBE TOP PRN (11:35)
[2019-09-07] MEDS: Ondansetron ODT 4 MG TAB PO PRN (13:09)
[2019-09-07] MEDS: Mag-Al Plus 1200 MG/1200 MG/120 MG/30 ML UDCUP PO PRN (17:39)
[2019-09-07] MEDS: Lantus 1000 UNITS/10 ML VIAL SC SCH (20:04)
[2019-09-08] MEDS: Atorvastatin Calcium 10 MG TAB PO SCH (08:07)
[2019-09-08] MEDS: Polyethylene Glycol 3350 17 GM Packet PO SCH (08:07)
[2019-09-08] MEDS: Metolazone 5 MG TAB PO SCH (08:08)
[2019-09-08] MEDS: Cephalexin 500 MG CAP PO SCH ×2 (08:08→20:44)
[2019-09-08] MEDS: Furosemide 80 MG TAB PO SCH (08:08)
[2019-09-08] MEDS: Silver Sulfadiazine 50 GM TUBE TOP PRN (08:09)
[2019-09-08] MEDS: Clotrimazole 1% Cream 15 GM TUBE TOP SCH ×2 (08:10→20:44)
--- NOTE | 2019-09-08 09:54 | PRG ---
DATE OF SERVICE: 09/08/2019 SUBJECTIVE: Patient says she is feeling very good today. She slept good. She said she is doing very well with her physical therapy. She has already been this morning. She is walking up to 70 feet several times a day using a rolling walker and just standby assistance. She is transferring independently. She is anticipating going to home on Friday, 09/09. She will have son there and also daughter who lives very close who will be looking in and helping and the Home Health will see her. She thinks she is strong enough and will do fine at home. OBJECTIVE: GENERAL: Patient is just returning to her room. She is sitting in her geriatric chair with the feet elevated and the dressing in her legs are removed. VITAL SIGNS: Show a temperature 97.8, pulse 104, respirations 16, O2 saturation 95% on 2 L, and blood pressure 118/64. Her weight is 153. Her highest weight during this admission has been 182, so she is 29 pounds down. LUNGS: Clear. HEART: Regular rate. EXTREMITIES: Lower extremities, just trace edema. Legs look much better. There are no new blisters or blebs. The raw areas where the blisters were present on the right leg have all healed. The right second toe also looks better. It is developing a little overlying crusting, but overall looks much better. The left lower leg on the anterior lower leg, there is one area, where the skin is not completely reepithelialized, but each day it is better. Remainder of the leg is good and all the wounds have healed. The little ulcerations on the toes were almost totally healed. Her FBS this morning is pending. Yesterday, it was 104. ASSESSMENT: 1. Severe generalized weakness. a. On admission, unable to ambulate, required assistance with all her ADLs. b. Following the hospitalization at [facility] from 08/12/2019 to . c. Improved. Walking 70 feet several times a day with a rolling walker and standby assistance. Transferring with just standby assistance as of 09/07. 2. Hospitalized at [facility] from 08/12 to 08/17 for acute encephalopathy, pneumonia with sepsis, hypotension, acute renal failure with metabolic acidosis and hyperkalemia requiring emergent dialysis. 3. Chronic right heart failure. a. Continued improvement. Weight down to 153 as of 09/07 coming down from a high of 182. 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 b. Complicated by chronic hypoxic respiratory failure requiring continuous supplemental O2. 5. History of active tuberculosis. a. Treated with four-drug regimen, rifampin, pyrazinamide, ethambutol, and isoniazid. b. Completed a three-drug course. The fourth drug isoniazid was stopped due to drug-induced hepatitis. 6. Cor pulmonale. 7. Diabetes, type 2. a. Controlled with no hypoglycemic episodes. 8. Cirrhosis of the liver. a. Secondary to drug-induced hepatitis from isoniazid. b. Complicated by ascites, stable with weight now down to 153 as of 09/07. 9. Hypertension. 10. Peripheral neuropathy. 11. Cellulitis of the right foot, resolved. 12. Chronic kidney disease, stable. 13. Chronic obstructive pulmonary disease. 14. Severe peripheral edema secondary to chronic right heart failure. a. Improved. b. Complicated by multiple blebs that all ruptured and the bases are all healed, except for small area on the left lower leg as of 09/07. 15. Peripheral artery disease. a. Complicated by small-vessel disease of the feet. b. Complicated by multiple ulcerations on the toes that have almost totally healed and the right second toe that is improving as of 09/07. PLAN: Continue present care. We will continue the Silvadene and Adaptic on the area that is not completely healed on the left anterior leg and on the right second toe. We will continue to wrap the leg for protection with the Kerlix and one layer of Rock 4-inch wrap. Planning on discharging on Friday, 09/09 where family will be there with her and assist her and Home Health will look in on her. Job ID: [id number] MTDD
[2019-09-08] MEDS: Lantus 1000 UNITS/10 ML VIAL SC SCH (20:47)
[2019-09-08] MEDS: Acetaminophen 325 MG TAB PO PRN (23:15)
[2019-09-09] MEDS: traMADol HCl 50 MG TAB PO PRN (02:32)
[2019-09-09] MEDS: Polyethylene Glycol 3350 17 GM Packet PO SCH (09:22)
[2019-09-09] MEDS: Atorvastatin Calcium 10 MG TAB PO SCH (09:23)
[2019-09-09] MEDS: Metolazone 5 MG TAB PO SCH (09:23)
[2019-09-09] MEDS: Furosemide 80 MG TAB PO SCH (09:23)
[2019-09-09] MEDS: Cephalexin 500 MG CAP PO SCH ×2 (09:23→21:20)
[2019-09-09] MEDS: Acetaminophen 325 MG TAB PO PRN ×2 (09:24→21:23)
[2019-09-09] MEDS: Clotrimazole 1% Cream 15 GM TUBE TOP SCH ×2 (09:24→21:20)
--- NOTE | 2019-09-09 11:02 | PRG ---
DATE OF SERVICE: 09/09/2019 SUBJECTIVE: The patient says she is feeling just fine. She is doing very well with her physical therapy. She is walking further and transferring easier. The wrappings have been left off the left lower leg and only the second toe dressed. OBJECTIVE: GENERAL: The patient is sitting up in her geriatric chair. She is alert, talkative, and is in no distress. VITAL SIGNS: Her temperature 97.9, pulse 106, respirations 18, O2 saturation 100% on 2 L, blood pressure 117/68. Her weight is 152. LUNGS: Clear. HEART: Regular rate. EXTREMITIES: Lower extremities, the right leg, there is no edema, there is dressing over the second toe. Left leg, there is no edema, the Rock wrap is still in place. LABORATORY DATA: Her FBS this morning is pending, yesterday's was 114. ASSESSMENT: The patient continues to improve. PLAN: We will continue present care. Continue PT and OT. Continue the dressings over the open area. Anticipate her discharge in the morning. Job ID: [id number]
[2019-09-09] MEDS: Lantus 1000 UNITS/10 ML VIAL SC SCH (22:00)
[2019-09-10 08:52] VITALS: BP 103/67; TEMP 97.4
[2019-09-10] MEDS: Acetaminophen 325 MG TAB PO PRN (09:28)
[2019-09-10] MEDS: Furosemide 80 MG TAB PO SCH (09:28)
[2019-09-10] MEDS: Polyethylene Glycol 3350 17 GM Packet PO SCH (09:28)
[2019-09-10] MEDS: Atorvastatin Calcium 10 MG TAB PO SCH (09:28)
[2019-09-10] MEDS: Metolazone 5 MG TAB PO SCH (09:28)
[2019-09-10] MEDS: Cephalexin 500 MG CAP PO SCH (09:28)
[2019-09-10] MEDS: Clotrimazole 1% Cream 15 GM TUBE TOP SCH (09:29)
--- NOTE | 2019-09-10 15:22 | DIS ---
DATE OF ADMISSION: 08/18/2019 DATE OF DISCHARGE: 09/10/2019 FINAL DIAGNOSES: 1. Severe generalized weakness. a. On admission, unable to ambulate and required assistance with all her ADLs. b. This followed a hospitalization at [facility] from 08/12/2019 to 08/18/2019. c. Improved, walking up to 175 feet with a rolling walker and transferring with standby assistance only. 2. Hospitalized at [facility] from 08/12 to 08/17 for acute encephalopathy, pneumonia with sepsis, hypotension, acute renal failure with metabolic acidosis and hyperkalemia requiring emergent dialysis. 3. Right heart failure. a. Resolved with admission weight of 176 and discharge weight of 144. 4. Postinflammatory pulmonary fibrosis. a. Secondary to tuberculosis. b. Complicated by chronic hypoxic respiratory failure requiring continuous supplemental oxygen. 5. History of active pulmonary tuberculosis. a. Treated with 4-drug regimen, rifampin, pyrazinamide, ethambutol, and isoniazid. b. Completed a 3-drug course. The 4-drug isoniazid was stopped due to drug- induced hepatitis. 6. Cor pulmonale. 7. Diabetes type 2. a. Complicated initially with hypoglycemic episodes requiring gradual reduction of Lantus from 57 units to 15 units daily. b. Controlled with no recurrence of hypoglycemia. 8. Cirrhosis of the liver. a. Secondary to drug-induced hepatitis from isoniazid. b. Complicated by ascites with gradual reduction with weight now down to 144. 9. Hypertension. 10. Peripheral neuropathy. 11. Cellulitis of the right foot, resolved. 12. Chronic kidney disease, stable. 13. Chronic obstructive pulmonary disease. 14. Severe peripheral edema secondary to chronic right heart failure. a. Resolved. b. Complicated by multiple blebs. Ruptured leaving superficial erosions that have healed, except for small area on the left lower leg. 15. Peripheral artery disease. a. Complicated by small-vessel disease of the feet. b. Complicated by multiple ulcerations of the toes that have all healed, except for the ulceration over the right second toe that is improving. SUMMARY: The patient is a 69-year-old white female, who resides at home. She has a history of diabetes type 2, hypertension, COPD, cor pulmonale, pulmonary fibrosis with chronic hypoxic respiratory failure requiring continuous O2 and a history of pulmonary tuberculosis that was treated and resolved. Initially, she was started on 4-drug regimen, but the isoniazid was stopped due to drug-induced hepatitis. This has been complicated by the development of cirrhosis and ascites. The patient also has chronic kidney disease. She was hospitalized at [facility] from 08/12/2019 until 08/18/2019 for acute encephalopathy, pneumonia with sepsis, acute renal failure with metabolic acidosis and hyperkalemia requiring emergent dialysis. She gradually improved, but was left extremely deconditioned and weak such that she was nonambulatory and required assistance with all her ADLs. She also developed some evidence of peripheral artery disease with small-vessel disease to her feet. She had developed some superficial ulcerations over the toes and over the second right toe. These were attempted to be managed with local care, but with her degree of peripheral artery disease and severe small-vessel disease in the feet, this could progress and eventually require amputation. The patient was sent to [facility] on 08/18/2019, due to the severe weakness. HOSPITAL COURSE: The patient was managed at [facility]. When she first arrived, she was extremely weak, essentially bed and chair confined and nonambulatory. She was edematous with her admission weight of 176. She had marked edema of the lower legs, multiple ulcerations over the toes, and ulceration on the right second toe. The right forefoot was red and hot from a cellulitis. There is marked edema of the lower legs. The patient was continued on her routine medication, continued on the supplemental O2, and was continued on her furosemide and Zaroxolyn 5 mg daily with the diuretics and elevation of the legs. She continued to gradually diurese and weight gradually decreased from the admission weight of 176 to a discharge weight of 144. As a complication of the severe edema of the legs, she developed multiple blebs on the legs. As these are ruptured, the base was left with superficial erosion. These were all attempted with cleansing application of Silvadene cream covering with Adaptics, gauze, and then the legs wrapped with Kerlix and just a moderate pressure compression wraps from the toes to the knees. Gradually, all the blebs ruptured and all the erosions of the skin beneath the blebs healed except for tiny area on the left lower anterior leg that has almost totally healed. The cellulitis over the right forefoot completely resolved. The patient had been placed on cephalexin and will be left on this for a couple of weeks yet due to the ulceration over the right second toe improved, but it will be slow in healing. The swelling completely resolved from the legs, and the legs' colors were pink and looked much better. The compression wraps were able to be stopped. The patient's lungs remained clear. She did have trouble initially with hypoglycemic episodes in manager intelligence and the Lantus was gradually reduced from an admission dose of 57 units down to 15 units and she has done very well on this. She did excellent with physical therapy. By her discharge, she was walking with a walker up to 175 feet with a rolling walker and standby assistance. She was able to transfer with just standby assistance. The patient made marked improvement, and by 09/10/2019, it was felt like she could now be managed at home. The patient lives with a son and has a daughter, who lives next door that will be assisting in her care. Home Health will see her and will continue to provide in-home PT and OT. The patient will need to continue on her supplemental O2 at 2 L. DISPOSITION: DIET: Renal low-protein diet with fluid restriction to 1800 mL per day. ACTIVITIES: Ambulate with the use of a walker. WOUND CARE: The right second toe will need to be cleaned daily with saline blotted up dry and then apply Silvadene cream, covered with an Adaptic and gauze. The tiny superficial area on the left lower leg will be cleaned daily, covered with Silvadene, Adaptic, and then, an overlying Mepilex. PT and OT per Home Health. Encourage the patient when sitting to elevate the feet and sleep in bed at night. MEDICATIONS: 1. O2 at 2 L continuous. 2. Acetaminophen 325 mg two every 6 hours as needed. 3. Maalox Plus 30 mL every 4 hours p.r.n. 4. Atorvastatin 20 mg daily. 5. Cephalexin 500 mg b.i.d. for 14 days. 6. Clotrimazole cream applied to the brad area b.i.d. for candidiasis until resolved and then p.r.n. 7. Duloxetine 20 mg at bedtime. 8. Furosemide 80 mg daily. 9. Lantus 15 units subcu at bedtime. 10. Melatonin 3 mg at bedtime. 11. Metolazone 5 mg daily. 12. Pantoprazole 40 mg daily. 13. MiraLAX 17 g 8 ounces of water daily as needed. 14. Tramadol 50 mg one at bedtime p.r.n. FOLLOWUP: Home Health will see the patient and help with the wound care and also arrange for in-home PT and OT in 2 weeks. The patient will need a BMP and a CBC. The patient will arrange followup visit with myself for 2 weeks. If the coronavirus pandemic has settled, she can come in, and if she is doing good, this will be a telephone visit. CODE STATUS: Full code. Job ID: [id number] MTDD
== END 2019-09-10 12:10 | disposition home health service (06) | DRG 948 ==
LOC: MADMS 16:50
PROVIDERS: ADMIT Family Medicine; ATTEND Family Medicine
DX: R53.1 Weakness (principal); J96.11 Chronic respiratory failure with hypoxia; R18.8 Other ascites; L97.929 Non-pressure chronic ulcer of unspecified part of left lower leg with unspecified severity; L03.115 Cellulitis of right lower limb; I13.0 Hypertensive heart and chronic kidney disease with heart failure and stage 1 through stage 4 chronic kidney disease, or unspecified chronic kidney disease; E78.5 Hyperlipidemia, unspecified; D64.9 Anemia, unspecified; D69.6 Thrombocytopenia, unspecified; E11.42 Type 2 diabetes mellitus with diabetic polyneuropathy; I50.812 Chronic right heart failure; J44.9 Chronic obstructive pulmonary disease, unspecified; J84.10 Pulmonary fibrosis, unspecified; I27.81 Cor pulmonale (chronic); I07.1 Rheumatic tricuspid insufficiency; K74.60 Unspecified cirrhosis of liver; E11.22 Type 2 diabetes mellitus with diabetic chronic kidney disease; I99.8 Other disorder of circulatory system; N18.9 Chronic kidney disease, unspecified; R23.8 Other skin changes; Z90.49 Acquired absence of other specified parts of digestive tract; Z90.710 Acquired absence of both cervix and uterus; Z79.4 Long term (current) use of insulin; Z79.899 Other long term (current) drug therapy; Z88.8 Allergy status to other drugs, medicaments and biological substances; Z87.891 Personal history of nicotine dependence; Z74.01 Bed confinement status
CPT/HCPCS: 36415; 36416; 71045; 80048; 80053; 81001; 83036; 85025; 85610; 87086; J1610; J1815; Q0162

== ENCOUNTER 2019-11-07 12:13 | Emergency (ER) | payer MEDICARE, OTHER ==
[~2019-11-07 12:13] MED LIST: Sodium Chloride 0.9% 100 ML BAG ONE
[2019-11-07 13:08] LABS: #Basophils 0.1 thou/uL (0.0-0.2); #Eosinphils 0.1 thou/uL (0.0-0.7); #Lymphocytes 1.8 thou/uL (1.20-3.40); #Monocytes 0.8 thou/uL (0.11-0.59); #Neutrophils 8.4 thou/uL (1.40-6.50); %Basophils 0.6 % (0.0-1.0); %Eosinophils 0.7 % (0.0-10.0); %Lymphocytes 16.3 % (21.0-51.0); %Monocytes 7.1 % (0.0-10.0); %Neutrophils 75.3 % (42.0-75.0); Hemoglobin 14.7 g/dL (12.0-16.0); Mean Corpuscular Hemoglobin 25.9 pg (27.0-31.0); Mean Corpuscular Volume 86.2 fL (78.0-98.0); Mean Platelet Volume 7.2 fL (7.4-10.4); Platelet Count 222 thou/uL (130-400); RBC Distribution Width 17.3 % (11.5-14.5); Red Blood Cell (RBC) Count 5.67 mill/uL (4.20-5.40); White Blood Cell (WBC) Count 11.2 thou/uL (4.8-10.8)
[2019-11-07] MEDS ORDERED: Sodium Chloride 0.9% 2,000 ML ONE (13:09)
[2019-11-07] MEDS ORDERED: Morphine 4 MG/ML VIAL ONE (13:09)
[2019-11-07 13:22] LABS: ALT (SGPT) 28 U/L (8-55); AST (SGOT) 32 U/L (5-34); Albumin 4.7 g/dL (3.4-4.8); Alkaline Phosphatase 163 U/L (40-110); Anion Gap 20 mmol/L (10-20); BUN (Urea Nitrogen) 58 mg/dL (9.8-20.1); Bilirubin, Total 0.8 mg/dL (0.2-1.2); Calc. Creatinine Clearance 0 mL/min (70-130); Calcium 10.4 mg/dL (7.8-10.44); Carbon Dioxide 20 mmol/L (23-31); Chloride 100 mmol/L (98-107); Estimated GFR-MDRD 39; Glucose 105 mg/dL (83-110); Potassium 6.3 mmol/L (3.5-5.1); Protein, Total 8.7 g/dL (6.0-8.3); Sodium 134 mmol/L (136-145)
--- NOTE | 2019-11-07 13:38 | RAD ---
EXAM RIGHT TOES THREE VIEWS: History: Infection, third toe right foot. FINDINGS: Arthrosis and degenerative changes are noted. Plantar subluxation of the second toe proximal interpha langeal joint with minimal soft tissue swelling of the second and third toes. IMPRESSION: Soft tissue swelling of the second and third toes with some plantar subluxation of the second toe pro ximal interphalangeal joint. Given concern for infection, follow up non-emergent MRI is recommended. POS: SJJASON
[2019-11-07 14:26] LABS: Anion Gap 17 mmol/L (10-20); BUN (Urea Nitrogen) 54 mg/dL (9.8-20.1); Calc. Creatinine Clearance 0 mL/min (70-130); Carbon Dioxide 16 mmol/L (23-31); Chloride 106 mmol/L (98-107); Estimated GFR-MDRD 50; Glucose 96 mg/dL (83-110); Sodium 133 mmol/L (136-145)
[2019-11-07] MEDS ORDERED: Insulin Regular 300 UNITS/3 ML VIAL ONE (14:34)
[2019-11-07] MEDS ORDERED: Dextrose 50% Abboject 50 ML SYRINGE ONE (14:34)
[2019-11-07] MEDS ORDERED: Calcium Gluc 4.6 MEQ/10 ML (100 MG/ML) ONE (14:34)
== END 2019-11-07 16:29 | disposition short-term general hospital (02) ==
LOC: MADERS 12:13
DX: L03.116 Cellulitis of left lower limb (principal); L03.115 Cellulitis of right lower limb; M86.171 Other acute osteomyelitis, right ankle and foot; E87.5 Hyperkalemia; E87.1 Hypo-osmolality and hyponatremia; E11.9 Type 2 diabetes mellitus without complications; E78.5 Hyperlipidemia, unspecified; E78.00 Pure hypercholesterolemia, unspecified; I10 Essential (primary) hypertension; J44.9 Chronic obstructive pulmonary disease, unspecified; Z79.4 Long term (current) use of insulin; Z87.891 Personal history of nicotine dependence
CPT/HCPCS: 36415; 36416; 80053; 83605; 85025; 86140; 87040; 93005; 96361; 96365; 96375; J1815; J2270; J3490; J7050

== ENCOUNTER 2020-02-17 18:39 | Outpatient (CLI) | payer MEDICARE, MEDICAID ==
[2020-02-17 19:08] LABS: Anion Gap 25 mmol/L (10-20); BUN (Urea Nitrogen) 85 mg/dL (9.8-20.1); Calc. Creatinine Clearance 0 mL/min (70-130); Carbon Dioxide 15 mmol/L (23-31); Chloride 101 mmol/L (98-107); Estimated GFR-MDRD 26; Glucose 316 mg/dL (83-110); Sodium 134 mmol/L (136-145)
[2020-02-17 19:10] LABS: Potassium 6.6 mmol/L (3.5-5.1)
== END 2020-02-17 18:40 | disposition home or self-care (01) ==
LOC: MADLAB 18:39
PROVIDERS: ATTEND Family Medicine
DX: N18.9 Chronic kidney disease, unspecified (principal)
CPT/HCPCS: 80048

== ENCOUNTER 2020-04-04 14:14 | Outpatient (CLI) | payer MEDICARE, OTHER ==
[2020-04-04 14:43] LABS: Anion Gap 18 mmol/L (10-20); BUN (Urea Nitrogen) 37 mg/dL (9.8-20.1); Calc. Creatinine Clearance 0 mL/min (70-130); Calcium 8.9 mg/dL (7.8-10.44); Carbon Dioxide 22 mmol/L (23-31); Chloride 103 mmol/L (98-107); Estimated GFR-MDRD 37; Glucose 164 mg/dL (83-110); Magnesium 1.8 mg/dL (1.6-2.6); Potassium 4.4 mmol/L (3.5-5.1); Sodium 139 mmol/L (136-145)
== END 2020-04-04 14:15 | disposition home or self-care (01) ==
LOC: MADLAB 14:14
PROVIDERS: ATTEND Family Medicine
DX: I13.0 Hypertensive heart and chronic kidney disease with heart failure and stage 1 through stage 4 chronic kidney disease, or unspecified chronic kidney disease (principal); N18.30 Chronic kidney disease, stage 3 unspecified; R60.0 Localized edema
CPT/HCPCS: 80048; 82040; 82306; 83735; 83970

== ENCOUNTER 2020-04-26 13:22 | Outpatient (CLI) | payer MEDICARE, OTHER ==
[2020-04-26 14:09] LABS: Albumin 4.1 g/dL (3.4-4.8); Anion Gap 18 mmol/L (10-20); BUN (Urea Nitrogen) 51 mg/dL (9.8-20.1); Calc. Creatinine Clearance 0 mL/min (70-130); Calcium 9.1 mg/dL (7.8-10.44); Carbon Dioxide 25 mmol/L (23-31); Chloride 103 mmol/L (98-107); Estimated GFR-MDRD 32; Glucose 159 mg/dL (83-110); Potassium 4.7 mmol/L (3.5-5.1); Sodium 141 mmol/L (136-145)
[2020-04-26 14:12] LABS: #Eosinphils 0.2 thou/uL (0.0-0.7); #Lymphocytes 1.1 thou/uL (1.20-3.40); #Monocytes 0.5 thou/uL (0.11-0.59); #Neutrophils 4.3 thou/uL (1.40-6.50); %Basophils 0.7 % (0.0-1.0); %Eosinophils 3.3 % (0.0-10.0); %Lymphocytes 18.4 % (21.0-51.0); %Monocytes 7.7 % (0.0-10.0); Hemoglobin 11.8 g/dL (12.0-16.0); Mean Corpuscular HGB CONC 29.5 g/dL (32.0-36.0); Mean Corpuscular Hemoglobin 25.8 pg (27.0-31.0); Mean Corpuscular Volume 87.4 fL (78.0-98.0); Mean Platelet Volume 7.9 fL (7.4-10.4); Platelet Count 140 thou/uL (130-400); Red Blood Cell (RBC) Count 4.57 mill/uL (4.20-5.40); White Blood Cell (WBC) Count 6.2 thou/uL (4.8-10.8)
== END 2020-04-26 13:23 | disposition home or self-care (01) ==
LOC: MADLAB 13:22
PROVIDERS: ATTEND Family Medicine
DX: I13.0 Hypertensive heart and chronic kidney disease with heart failure and stage 1 through stage 4 chronic kidney disease, or unspecified chronic kidney disease (principal); I50.9 Heart failure, unspecified; N18.30 Chronic kidney disease, stage 3 unspecified; R60.9 Edema, unspecified
CPT/HCPCS: 36415; 80048; 82040; 83735; 85025

== ENCOUNTER 2020-05-31 13:52 | Outpatient (CLI) | payer MEDICARE, OTHER ==
[2020-05-31 14:31] LABS: ALT (SGPT) Less than 7 U/L (8-55); AST (SGOT) 13 U/L (5-34); Albumin 3.9 g/dL (3.4-4.8); Alkaline Phosphatase 97 U/L (40-110); Anion Gap 19 mmol/L (10-20); BUN (Urea Nitrogen) 55 mg/dL (9.8-20.1); Bilirubin, Total 0.9 mg/dL (0.2-1.2); Calc. Creatinine Clearance 0 mL/min (70-130); Carbon Dioxide 28 mmol/L (23-31); Cardiac Risk 2.1 (Less than 4.5); Chloride 97 mmol/L (98-107); Cholesterol 90 mg/dl (< 200 Desired); Globulin 2.7 g/dL (2.4-3.5); Glucose 131 mg/dL (83-110); HDL Cholesterol 42 mg/dL (>60 Neg Risk); LDL Cholesterol, Calculated 36 mg/dL; Protein, Total 6.6 g/dL (6.0-8.3); Sodium 140 mmol/L (136-145); Triglycerides 60 mg/dL (Less than 150)
[2020-05-31 14:39] LABS: #Basophils 0.1 thou/uL (0.0-0.2); #Eosinphils 0.3 thou/uL (0.0-0.7); #Lymphocytes 1.5 thou/uL (1.20-3.40); #Monocytes 0.6 thou/uL (0.11-0.59); #Neutrophils 4.2 thou/uL (1.40-6.50); %Basophils 1.1 % (0.0-1.0); %Eosinophils 4.4 % (0.0-10.0); %Lymphocytes 22.3 % (21.0-51.0); %Monocytes 8.8 % (0.0-10.0); %Neutrophils 63.4 % (42.0-75.0); Anisocytosis SLIGHT = 6-15 cells (100X) (0-5/hpf); Hemoglobin 12.3 g/dL (12.0-16.0); Hypochromia SLIGHT = 6-15 cells (100X) (0-5/hpf); MDiff Complete? YES; Mean Corpuscular HGB CONC 29.6 g/dL (32.0-36.0); Mean Corpuscular Hemoglobin 24.5 pg (27.0-31.0); Mean Corpuscular Volume 82.7 fL (78.0-98.0); Mean Platelet Volume 7.8 fL (7.4-10.4); Platelet Count 139 thou/uL (130-400); Platelet Morphology Comment Appears Adequate; RBC Distribution Width 15.9 % (11.5-14.5); Red Blood Cell (RBC) Count 5.01 mill/uL (4.20-5.40); White Blood Cell (WBC) Count 6.6 thou/uL (4.8-10.8)
[2020-05-31 21:51] LABS: Hemoglobin A1c 8.5 % (4.0-6.0)
== END 2020-05-31 13:53 | disposition home or self-care (01) ==
LOC: MADLAB 13:52
PROVIDERS: ATTEND Family Medicine
DX: E11.40 Type 2 diabetes mellitus with diabetic neuropathy, unspecified (principal)
CPT/HCPCS: 80053; 80061; 83036; 85025

== ENCOUNTER 2020-07-24 14:22 | Outpatient (CLI) | payer MEDICARE, OTHER ==
[2020-07-24 15:41] LABS: Albumin 3.8 g/dL (3.4-4.8); Anion Gap 17 mmol/L (10-20); BUN (Urea Nitrogen) 31 mg/dL (9.8-20.1); Calc. Creatinine Clearance 0 mL/min (70-130); Calcium 8.8 mg/dL (7.8-10.44); Carbon Dioxide 26 mmol/L (23-31); Chloride 104 mmol/L (98-107); Glucose 128 mg/dL (83-110); Phosphorus 3.2 mg/dL (2.3-4.7); Potassium 4.8 mmol/L (3.5-5.1); Sodium 142 mmol/L (136-145)
== END 2020-07-24 14:23 | disposition home or self-care (01) ==
LOC: MADLAB 14:22
PROVIDERS: ATTEND Internal Medicine Nephrology
DX: I13.10 Hypertensive heart and chronic kidney disease without heart failure, with stage 1 through stage 4 chronic kidney disease, or unspecified chronic kidney disease (principal); N18.30 Chronic kidney disease, stage 3 unspecified; E55.9 Vitamin D deficiency, unspecified; R60.0 Localized edema
CPT/HCPCS: 80048; 82040; 83735; 83970; 84100

== ENCOUNTER 2020-09-01 18:00 | Emergency (ER) | payer MEDICARE, OTHER ==
[2020-09-01 19:15] LABS: INR-International Normal Ratio 1.3
[2020-09-01 19:22] LABS: #Eosinphils 0.1 thou/uL (0.0-0.7); #Lymphocytes 0.9 thou/uL (1.20-3.40); #Monocytes 0.6 thou/uL (0.11-0.59); #Neutrophils 4.5 thou/uL (1.40-6.50); %Basophils 0.8 % (0.0-1.0); %Eosinophils 2.2 % (0.0-10.0); %Lymphocytes 14.3 % (21.0-51.0); %Monocytes 9.1 % (0.0-10.0); %Neutrophils 73.6 % (42.0-75.0); MDiff Complete? YES; Mean Corpuscular HGB CONC 28.3 g/dL (32.0-36.0); Mean Corpuscular Hemoglobin 23.2 pg (27.0-31.0); Mean Platelet Volume 7.3 fL (7.4-10.4); Ovalocytes SLIGHT = 2-5 cells (100X) (0-1/hpf); Platelet Count 131 thou/uL (130-400); RBC Distribution Width 18.8 % (11.5-14.5); Red Blood Cell (RBC) Count 4.73 mill/uL (4.20-5.40); Schistocytes SLIGHT = 2-5 cells (100X) (0-1/hpf); Tear Drops SLIGHT = 2-5 cells (100X) (0-1/hpf); White Blood Cell (WBC) Count 6.2 thou/uL (4.8-10.8)
[2020-09-01 19:23] LABS: ALT (SGPT) 9 U/L (8-55); AST (SGOT) 17 U/L (5-34); Albumin 3.8 g/dL (3.4-4.8); Alkaline Phosphatase 94 U/L (40-110); Anion Gap 15 mmol/L (10-20); BUN (Urea Nitrogen) 33 mg/dL (9.8-20.1); Bilirubin, Total 1.2 mg/dL (0.2-1.2); Calc. Creatinine Clearance 0 mL/min (70-130); Calcium 9.1 mg/dL (7.8-10.44); Carbon Dioxide 29 mmol/L (23-31); Chloride 104 mmol/L (98-107); Globulin 2.8 g/dL (2.4-3.5); Glucose 147 mg/dL (83-110); Potassium 4.8 mmol/L (3.5-5.1); Protein, Total 6.6 g/dL (5.8-8.1); Sodium 143 mmol/L (136-145)
[2020-09-01 19:30] LABS: Bilirubin Negative (Negative); Blood, Urine Moderate (Negative); Glucose, Urine (Dipstick) Negative (Negative); Ketone, Urine Negative (Negative); Leukocyte Small (Negative); Nitrite Positive (Negative); Protein, Urine (Dipstick) 30 mg/dL (Neg-Trace); pH, Urine 5.5 (5.0-9.0)
[2020-09-01 19:32] LABS: Clarity Hazy (Clear)
[2020-09-01 19:33] LABS: Bacteria/HPF 3+ HPF (None Seen)
[2020-09-01 19:52] LABS: SARS-CoV-2 NAA Rapid Test Not Detected (NotDetected)
== END 2020-09-01 21:01 | disposition short-term general hospital (02) ==
LOC: MADERS 18:00
DX: R18.8 Other ascites (principal); N39.0 Urinary tract infection, site not specified; E11.9 Type 2 diabetes mellitus without complications; E78.5 Hyperlipidemia, unspecified; E78.00 Pure hypercholesterolemia, unspecified; I10 Essential (primary) hypertension; Z88.8 Allergy status to other drugs, medicaments and biological substances; J44.9 Chronic obstructive pulmonary disease, unspecified; Z88.6 Allergy status to analgesic agent; Z79.4 Long term (current) use of insulin; Z79.899 Other long term (current) drug therapy; Z87.891 Personal history of nicotine dependence
CPT/HCPCS: 0240U; 36415; 80053; 81003; 81015; 83605; 85025; 85610